=== PATIENT | male | born 1990 | race Caucasian/White ===

== ENCOUNTER 2017-07-23 19:20 | Inpatient (IN) | payer OTHER ==
[2017-07-23 20:05] VITALS: BMI 23.1
--- NOTE | 2017-07-23 21:31 | HP ---
COWS - Scale Resting Pulse: 0= [place] 80 or Below Sweatin=Flushed/Facial Moisture Restless Observation: 1= Difficult to Sit Still Pupil Size: 1= Pupils >than Normal Bone or Joint Aches: 4=Acute Joint/Muscle Pain Runny Nose/ Eye Tearin= Constantly Teary/Runny GI Upset > 30mins: 3= Vomiting/Diarrhea (vomiting x 2, diarrhea x 3) Tremor Observation: 2= Slight Tremor Visible Yawning Observation: 0= None Anxiety or Irritability: 2=Irritable/Anxious Goose Flesh Skin: 0=Smooth Skin COWS Score: 19 Admission ROS [facility] Chief Complaint: Opioid withdrawal symptoms Allergies/Adverse Reactions: Allergies Allergy/AdvReac Type Severity Reaction Status Date / Time No Known Allergies Allergy Verified 07/23/17 20:22 History of Present Illness: 26 years old male with a long history of heroin dependence is seeking admission to detox. Patient has been in previous detox, last in 2015. He reports 9 months of sobriety. He has past medical history of Hep C, GERD, anxiety and depression. He denies suicidal attempt and suicidal ideation at this time. Exam Limitations: No Limitations - Ebola screening Have you traveled outside of the country in the last 21 days: No Have you had contact with anyone from an Ebola affected area: No Have you been sick,other than usual withdrawal symptoms: No Do you have a fever: No - Review of Systems Constitutional: Chills, Loss of Appetite, Malaise, Night Sweats, Changes in sleep EENT: reports: Nose Congestion, Sinus Pressure Respiratory: reports: No Symptoms reported Cardiac: reports: No Symptoms Reported GI: reports: Diarrhea, Nausea, Poor Appetite, Poor Fluid Intake, Vomiting, Abdominal cramping : reports: No Symptoms Reported Musculoskeletal: reports: Back Pain, Muscle Pain, Muscle Weakness Integumentary: reports: Flushing Neuro: reports: Headache, Tingling, Tremors Endocrine: reports: No Symptoms Reported Hematology: reports: No Symptoms Reported Psychiatric: reports: Orientated x3, Agitated, Anxious Other Systems: Reviewed and Negative Patient History - Patient Medical History Hx Anemia: No Hx Asthma: No Hx Chronic Obstructive Pulmonary Disease (COPD): No Hx Cancer: No Hx Cardiac Disorders: No Hx Congestive Heart Failure: No Hx Hypertension: No Hx Hypercholesterolemia: No Hx Pacemaker: No HX Cerebrovascular Accident: No Hx Seizures: No Hx Dementia: No Hx Diabetes: No Hx Gastrointestinal Disorders: Yes (GERD- ON NEXIUM) Hx Liver Disease: No Hx Genitourinary Disorders: No Hx Sexually Transmitted Disorders: No Hx Renal Disease (ESRD): No Hx Thyroid Disease: No Hx Human Immunodeficiency Virus (HIV): No (Negative April 2017) Hx Hepatitis C: Yes (Not on medication) Hx Depression: Yes (ZOLOFT) Hx Suicide Attempt: No (Denies suicidal ideation at this time) Hx Bipolar Disorder: Yes ([place]) Hx Schizophrenia: No Other Medical History: ANXIETY DISORDER- CLONIDINE - Patient Surgical History Past Surgical History: No Hx Neurologic Surgery: No Hx Cataract Extraction: No Hx Cardiac Surgery: No Hx Lung Surgery: No Hx Abdominal Surgery: No Hx Appendectomy: No Hx Cholecystectomy: No Hx Genitourinary Surgery: No Hx Orthopedic Surgery: No Anesthesia Reaction: No - PPD History Previous Implant?: Yes Documented Results: Negative w/proof Implanted On Prior [facility] Admission?: Yes Date: 01/18/16 Results: 0 mm PPD to be Administered?: Yes - Reproductive History Patient is a Female of Child Bearing Age (11 -55 yrs old): No (MALE) - Smoking Cessation Smoking history: Current every day smoker Have you smoked in the past 12 months: Yes Aproximately how many cigarettes per day: 20 Cigars Per Day: 0 Hx Chewing Tobacco Use: No Initiated information on smoking cessation: Yes 'Breaking Loose' booklet given: 07/23/17 - Substance & Tx. History Hx Alcohol Use: No Hx Substance Use: Yes Substance Use Type: Cocaine, Heroin, Marijuana - Substances Abused Heroin Route: Injection Frequency: Daily Amount used: 8 bags Age of first use: 19 Date of Last Use: 07/22/17 Cocaine Frequency: 1-2 times per week Amount used: a bag weeekly Age of first use: 20 Date of Last Use: 07/22/17 Family Disease History - Family Disease History Family Disease History: Other: Father (etoh), Mother (etoh) Admission Physical Exam S - Vital Signs Vital Signs: Vital Signs - 24 hr 07/23/17 20:03 Temperature 97.6 F Pulse Rate 72 Respiratory 18 Rate Blood Pressure 127/72 - Physical General Appearance: Yes: Moderate Distress HEENTM: Yes: EOMI, Normal ENT Inspection, Normal Voice, ATUL Respiratory: Yes: Lungs Clear, Normal Breath Sounds, No Respiratory Distress Neck: Yes: Supple Breast: Yes: Breast Exam Deferred Cardiology: Yes: Regular Rhythm, Regular Rate, S1, S2 Abdominal: Yes: Normal Bowel Sounds, Soft Genitourinary: Yes: Within Normal Limits Back: Yes: Normal Inspection Musculoskeletal: Yes: Back pain, Muscle Pain, Muscle weakness Extremities: Yes: Tremors 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: Yes: Alert, Normal Mood/Affect Integumentary: Yes: Warm Lymphatic: Yes: Within Normal Limits - Diagnostic (1) Depression Current Visit: Yes Status: Chronic Qualifiers: Depression Type: unspecified Qualified Code(s): F32.9 - Major depressive disorder, single episode, unspecified (2) Cocaine dependence Current Visit: Yes Status: Chronic Qualifiers: Substance use status: uncomplicated Qualified Code(s): F14.20 - Cocaine dependence, uncomplicated (3) Opioid dependence with withdrawal Current Visit: Yes Status: Chronic (4) Anxiety disorder Current Visit: Yes Status: Chronic Qualifiers: Anxiety disorder type: generalized anxiety disorder Qualified Code(s): F41.1 - Generalized anxiety disorder (5) Nicotine dependence Current Visit: Yes Status: Chronic Qualifiers: Nicotine product type: cigarettes Substance use status: uncomplicated Qualified Code(s): F17.210 - Nicotine dependence, cigarettes, uncomplicated Cleared for Admission S - Detox or Rehab [facility] Level of Care: Medically Managed Detox Regimen/Protocol: Methadone [facility] Breath Alcohol Content Breath Alcohol Content: 0 Urine Drug Screen - Results Drug Screen Negative: No Urine Drug Screen Results: THC-Marijuana, KM-Cocaine, OPI-Opiates, OXY- Oxycodone
[2017-07-23] MEDS ORDERED: MAGNESIUM CITRATE 300 ML BOTTLE PO PRN (21:41)
[2017-07-23] MEDS ORDERED: MAG HYDROX/AL HYDROX/SIMETH 30 ML UNIT-DOSE CUP PO PRN (21:41)
[2017-07-23] MEDS ORDERED: MENTHOL/PHENOL 1 EACH UD MM PRN (21:41)
[2017-07-23] MEDS ORDERED: LOPERAMIDE HCL 2 MG CAPSULE PO PRN (21:41)
[2017-07-23] MEDS ORDERED: ACETAMINOPHEN 325 MG TABLET (FP) PO PRN (21:41)
[2017-07-23] MEDS ORDERED: IBUPROFEN 400 MG TABLET (FP) PO PRN (21:41)
[2017-07-23] MEDS ORDERED: METHADONE HCL 10 MG TABLET (FOR DETOX USE ONLY) PO ONE ×2 (21:41→23:00)
[2017-07-23] MEDS ORDERED: guaiFENesin/D-METHORPHAN HB 10 ML UNIT-DOSE CUPS PO PRN (21:41)
[2017-07-23] MEDS ORDERED: P-EPHED 60MG/TRIPROLIDI 2.5MG TABLET PO PRN (21:41)
[2017-07-23] MEDS ORDERED: NICOTINE POLACRILEX 2 MG GUM BC PRN (21:41)
[2017-07-23] MEDS ORDERED: MAGNESIUM HYDROX 2400MG/30ML ORAL SUSPENSION 30 ML CUP PO PRN (21:41)
[2017-07-23] MEDS: diazePAM 5 MG TABLET PO PRN (22:45)
[2017-07-23] MEDS: THIAMINE HCL 100 MG TABLET (FP) PO SCH (22:45)
[2017-07-23 23:54] LABS: URINE APPEARANCE CLEAR; URINE BILIRUBIN NEGATIVE (NEGATIVE); URINE BLOOD NEGATIVE (NEGATIVE); URINE COLOR DKYELLOW; URINE GLUCOSE (UA) NEGATIVE (NEGATIVE); URINE KETONE NEGATIVE (NEGATIVE); URINE LEUK ESTERASE NEGATIVE (NEGATIVE); URINE NITRITE NEGATIVE (NEGATIVE); URINE PROTEIN NEGATIVE (NEGATIVE)
[2017-07-24] MEDS ORDERED: METHADONE HCL 10 MG TABLET (FOR DETOX USE ONLY) PO ONE (10:00)
[2017-07-24 10:31] LABS: HEMATOCRIT 39.7 % (35.4-49); HEMOGLOBIN 13.9 GM/dL (11.7-16.9); MEAN CELL VOLUME 88.5 fl (80-96); MEAN PLT VOLUME 8.4 fl (7.5-11.1); PLATELET COUNT 237 K/MM3 (134-434); RBC 4.49 M/mm3 (4.00-5.60)
[2017-07-24 10:32] LABS: CHLORIDE 103 mmol/L (98-107); POTASSIUM 4.1 mmol/L (3.5-5.1); SODIUM 137 mmol/L (136-145)
--- NOTE | 2017-07-24 10:53 | CONSULT ---
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 Substance Abuse History: Discussed in this interview.Mr Gallardo confirmed addictions reported at [facility] on admission.Details as follows : Smoking history: Current every day smoker. Have you smoked in the past 12 months: Yes. Aproximately how many cigarettes per day: 20. Cigars Per Day: 0. Hx Chewing Tobacco Use: No. Initiated information on smoking cessation: Yes. 'Breaking Loose' booklet given: 07/23/17. - Substance & Tx. History. Hx Alcohol Use: No. Hx Substance Use: Yes. Substance Use Type: Cocaine, Heroin, Marijuana. - Substances Abused. Heroin. Route: Injection. Frequency: Daily. Amount used: 8 bags. Age of first use: 19. Date of Last Use: 07/22/17. Cocaine. Frequency: 1-2 times per week. Amount used: a bag weeekly. Age of first use: 20. Date of Last Use: 07/22/17 Medical History: Hepatitis C and GERD. Psychiatric History: Patient admits to a history of two psychiatric hospitalizations at [facility] in [facility].Diagnosed with Bipolar Disorder and MDD.Used to be prescribed zoloft,trazodone,depakote and seroquel.Chronically non-adherent to OPD care and medications.Lost to follow-up for months.Mr Gallardo indicates his interest in resuming treatment with trazodone (prescribed during a recent incarceration).No reported history of suicide attempts. Physical/Sexual Abuse/Trauma History: Patient denies. Additional Comment: Urine Drug Screen Results: THC-Marijuana, KM-Cocaine, OPI- Opiates, OXY-Oxycodone.Noted. Mental Status Exam - Mental Status Exam Alert and Oriented to: Time, Place, Person Cognitive Function: Good Patient Appearance: Unkempt, Disheveled Mood: Nervous, Withdrawn Affect: Mood Congruent Patient Behavior: Fatigued, Appropriate, Cooperative Speech Pattern: Clear, Appropriate Voice Loudness: Normal Thought Process: Goal Oriented Thought Disorder: Not Present Hallucinations: Denies Suicidal Ideation: Denies Homicidal Ideation: Denies Insight/Judgement: Poor Sleep: Poorly, Difficulty falling asleep Appetite: Good Muscle strength/Tone: Normal Gait/Station: Normal Psychiatric Findings - Problem List ([place] 1, 2,3) (1) Opioid dependence with withdrawal Current Visit: Yes Status: Acute (2) Alcohol dependence with uncomplicated withdrawal Current Visit: Yes Status: Acute (3) Cocaine dependence Current Visit: Yes Status: Acute Qualifiers: Substance use status: uncomplicated Qualified Code(s): F14.20 - Cocaine dependence, uncomplicated (4) Marijuana dependence Current Visit: Yes Status: Acute (5) Nicotine dependence Current Visit: Yes Status: Acute Qualifiers: Nicotine product type: cigarettes Substance use status: uncomplicated Qualified Code(s): F17.210 - Nicotine dependence, cigarettes, uncomplicated (6) Substance induced mood disorder Current Visit: Yes Status: Acute (7) Bipolar disorder Current Visit: No Status: Suspected Comment: As per records.Patient is asymptomatic.Non compliant with medications.Lost to follow-up for several months. (8) Insomnia Current Visit: Yes Status: Chronic Qualifiers: Insomnia type: primary Qualified Code(s): F51.01 - Primary insomnia - Initial Treatment Plan Initial Treatment Plan: Records revisited.Sleep hygiene.Detoxification in progress.Medications : trazodone 100 mg po hs.Patient is made aware of the risk for priapism.Mr Gallardo agrees with this careplan.Observation.
--- NOTE | 2017-07-24 10:55 | PN ---
BHS COWS - Scale Resting Pulse: 0= [place] 80 or Below Sweatin= Chills/Flushing Restless Observation: 3= Extraneous Movement Pupil Size: 0= Normal to Room Light Bone or Joint Aches: 2= Severe Diffuse Aches Runny Nose/ Eye Tearin= Runny Nose/Eyes GI Upset > 30mins: 2= Nausea/Diarrhea Tremor Observation of Outstretched Hands: 2= Slight Tremor Visible Yawning Observation: 2= >3x During Session Anxiety or Irritability: 2=Irritable/Anxious Goose Flesh Skin: 0=Smooth Skin COWS Score: 16 BHS Progress Note (SOAP) Subjective: general body ache tremor restlessness sweat yawning Objective: 07/24/17 10:49 Vital Signs Temperature 97.3 F L 07/24/17 06:00 Pulse Rate 66 07/24/17 06:00 Respiratory Rate 18 07/24/17 06:00 Blood Pressure 126/67 07/24/17 06:00 O2 Sat by Pulse Oximetry (%) Laboratory Last Values WBC 6.0 K/mm3 (4.0-10.0) 07/24/17 07:00 RBC 4.49 M/mm3 (4.00-5.60) 07/24/17 07:00 Hgb 13.9 GM/dL (11.7-16.9) 07/24/17 07:00 Hct 39.7 % (35.4-49) 07/24/17 07:00 MCV 88.5 fl (80-96) 07/24/17 07:00 MCH 31.0 pg (25.7-33.7) 07/24/17 07:00 MCHC 35.0 g/dl (32.0-35.9) 07/24/17 07:00 RDW 13.0 % (11.9-15.9) 07/24/17 07:00 Plt Count 237 K/MM3 (134-434) 07/24/17 07:00 MPV 8.4 fl (7.5-11.1) 07/24/17 07:00 Sodium 137 mmol/L (136-145) 07/24/17 07:00 Potassium 4.1 mmol/L (3.5-5.1) 07/24/17 07:00 Chloride 103 mmol/L (98-107) 07/24/17 07:00 Urine Color Dkyellow 07/23/17 23:40 Urine Appearance Clear 07/23/17 23:40 Urine pH 6.0 (5.0-8.0) 07/23/17 23:40 Ur Specific [place] 1.024 (1.001-1.035) 07/23/17 23:40 Urine Protein Negative (NEGATIVE) 07/23/17 23:40 Urine Glucose (UA) Negative (NEGATIVE) 07/23/17 23:40 Urine Ketones Negative (NEGATIVE) 07/23/17 23:40 Urine Blood Negative (NEGATIVE) 07/23/17 23:40 Urine Nitrite Negative (NEGATIVE) 07/23/17 23:40 Urine Bilirubin Negative (NEGATIVE) 07/23/17 23:40 Urine Urobilinogen 2.0 mg/dL (0.2-1.0) 07/23/17 23:40 Ur Leukocyte Esterase Negative (NEGATIVE) 07/23/17 23:40 lab noted Assessment: 07/24/17 10:49 withdrawal sx Plan: continue detox
[2017-07-24 11:07] LABS: ALBUMIN 3.4 g/dl (3.4-5.0); ALK PHOS 111 U/L (45-117); ANION GAP 7 (8-16); BILIRUBIN,TOTAL 0.4 mg/dL (0.2-1.0); BLOOD UREA NITROGEN 12 mg/dL (7-18); CALCIUM 8.7 mg/dL (8.5-10.1); CO2 27 mmol/L (21-32); CREATININE 0.8 mg/dL (0.7-1.3); GLUCOSE,RANDOM 98 mg/dL (74-106); SGOT/AST 72 U/L (15-37); SGPT/ALT 169 U/L (12-78); TOT PROT 6.4 g/dl (6.4-8.2)
[2017-07-24] MEDS: diazePAM 5 MG TABLET PO PRN ×3 (11:10→22:10)
[2017-07-24] MEDS: PRENATAL VITAMINS W/ FOLIC ACID TABLET (FP) PO SCH (11:10)
[2017-07-24] MEDS: PANTOPRAZOLE 20 MG TABLET (FP) PO SCH (11:10)
[2017-07-24] MEDS: NICOTINE 14 MG/24 HOURS TOPICAL PATCH TD SCH (11:11)
--- NOTE | 2017-07-24 12:03 | EKG ---
Test Reason : Blood Pressure : / mmHG Vent. Rate : 072 BPM Atrial Rate : 072 BPM P-R Int : 172 ms QRS Dur : 104 ms QT Int : 402 ms P-R-T Axes : 059 088 066 degrees QTc Int : 440 ms NORMAL SINUS RHYTHM NORMAL ECG NO PREVIOUS ECGS AVAILABLE Confirmed by MD Cornel, Patrick ([id number]) on 07/24/2017 12:03:13 PM Referred By: Confirmed By:Patrick Unger MD
[2017-07-24] MEDS: THIAMINE HCL 100 MG TABLET (FP) PO SCH (22:09)
[2017-07-24] MEDS: traZODone HCL 100 MG TABLET (FP) PO SCH (22:09)
--- NOTE | 2017-07-25 09:47 | PN ---
BHS COWS - Scale Resting Pulse: 0= [place] 80 or Below Sweatin= Chills/Flushing Restless Observation: 1= Difficult to Sit Still Pupil Size: 0= Normal to Room Light Bone or Joint Aches: 2= Severe Diffuse Aches Runny Nose/ Eye Tearin= Runny Nose/Eyes GI Upset > 30mins: 1= Stomach Cramp Tremor Observation of Outstretched Hands: 2= Slight Tremor Visible Yawning Observation: 2= >3x During Session Anxiety or Irritability: 2=Irritable/Anxious Goose Flesh Skin: 0=Smooth Skin COWS Score: 13 BHS Progress Note (SOAP) Subjective: general body ache sweat tremor restlessness running nose Objective: 07/25/17 09:46 Vital Signs Temperature 97.1 F L 07/25/17 06:30 Pulse Rate 58 L 07/25/17 06:30 Respiratory Rate 18 07/25/17 06:30 Blood Pressure 98/59 07/25/17 06:30 O2 Sat by Pulse Oximetry (%) Laboratory Last Values WBC 6.0 K/mm3 (4.0-10.0) 07/24/17 07:00 RBC 4.49 M/mm3 (4.00-5.60) 07/24/17 07:00 Hgb 13.9 GM/dL (11.7-16.9) 07/24/17 07:00 Hct 39.7 % (35.4-49) 07/24/17 07:00 MCV 88.5 fl (80-96) 07/24/17 07:00 MCH 31.0 pg (25.7-33.7) 07/24/17 07:00 MCHC 35.0 g/dl (32.0-35.9) 07/24/17 07:00 RDW 13.0 % (11.9-15.9) 07/24/17 07:00 Plt Count 237 K/MM3 (134-434) 07/24/17 07:00 MPV 8.4 fl (7.5-11.1) 07/24/17 07:00 Sodium 137 mmol/L (136-145) 07/24/17 07:00 Potassium 4.1 mmol/L (3.5-5.1) 07/24/17 07:00 Chloride 103 mmol/L (98-107) 07/24/17 07:00 Carbon Dioxide 27 mmol/L (21-32) 07/24/17 07:00 Anion Gap 7 (8-16) L 07/24/17 07:00 BUN 12 mg/dL (7-18) 07/24/17 07:00 Creatinine 0.8 mg/dL (0.7-1.3) D 07/24/17 07:00 Creat Clearance w eGFR > 60 (>60) 07/24/17 07:00 Random Glucose 98 mg/dL (74-106) 07/24/17 07:00 Calcium 8.7 mg/dL (8.5-10.1) 07/24/17 07:00 Total Bilirubin 0.4 mg/dL (0.2-1.0) D 07/24/17 07:00 AST 72 U/L (15-37) H D 07/24/17 07:00 ALT 169 U/L (12-78) H D 07/24/17 07:00 Alkaline Phosphatase 111 U/L (45-117) D 07/24/17 07:00 Total Protein 6.4 g/dl (6.4-8.2) 07/24/17 07:00 Albumin 3.4 g/dl (3.4-5.0) 07/24/17 07:00 Urine Color Dkyellow 07/23/17 23:40 Urine Appearance Clear 07/23/17 23:40 Urine pH 6.0 (5.0-8.0) 07/23/17 23:40 Ur Specific [place] 1.024 (1.001-1.035) 07/23/17 23:40 Urine Protein Negative (NEGATIVE) 07/23/17 23:40 Urine Glucose (UA) Negative (NEGATIVE) 07/23/17 23:40 Urine Ketones Negative (NEGATIVE) 07/23/17 23:40 Urine Blood Negative (NEGATIVE) 07/23/17 23:40 Urine Nitrite Negative (NEGATIVE) 07/23/17 23:40 Urine Bilirubin Negative (NEGATIVE) 07/23/17 23:40 Urine Urobilinogen 2.0 mg/dL (0.2-1.0) 07/23/17 23:40 Ur Leukocyte Esterase Negative (NEGATIVE) 07/23/17 23:40 RPR Titer Nonreactive (NONREACTIVE) 07/24/17 07:00 lab noted Assessment: 07/25/17 09:46 withdrawal sx Plan: continue detox
[2017-07-25] MEDS ORDERED: METHADONE HCL 5 MG TABLET (FOR DETOX USE ONLY) PO ONE (10:00)
[2017-07-25] MEDS: PANTOPRAZOLE 20 MG TABLET (FP) PO SCH (10:15)
[2017-07-25] MEDS: PRENATAL VITAMINS W/ FOLIC ACID TABLET (FP) PO SCH (10:15)
[2017-07-25] MEDS: diazePAM 5 MG TABLET PO PRN ×3 (10:15→21:02)
[2017-07-25] MEDS: NICOTINE 14 MG/24 HOURS TOPICAL PATCH TD SCH (10:15)
[2017-07-25] MEDS: THIAMINE HCL 100 MG TABLET (FP) PO SCH (22:34)
[2017-07-25] MEDS: traZODone HCL 100 MG TABLET (FP) PO SCH (22:34)
[2017-07-26] MEDS ORDERED: METHADONE HCL 5 MG TABLET (FOR DETOX USE ONLY) PO ONE (10:00)
--- NOTE | 2017-07-26 10:23 | PN ---
BHS Progress Note (SOAP) Subjective: general body ache joint aches stuffy nose sweat tremor restlessness irritable Objective: 07/26/17 10:19 Vital Signs Temperature 97.0 F L 07/26/17 06:26 Pulse Rate 55 L 07/26/17 06:26 Respiratory Rate 18 07/26/17 06:26 Blood Pressure 131/87 07/26/17 06:26 O2 Sat by Pulse Oximetry (%) Laboratory Last Values WBC 6.0 K/mm3 (4.0-10.0) 07/24/17 07:00 RBC 4.49 M/mm3 (4.00-5.60) 07/24/17 07:00 Hgb 13.9 GM/dL (11.7-16.9) 07/24/17 07:00 Hct 39.7 % (35.4-49) 07/24/17 07:00 MCV 88.5 fl (80-96) 07/24/17 07:00 MCH 31.0 pg (25.7-33.7) 07/24/17 07:00 MCHC 35.0 g/dl (32.0-35.9) 07/24/17 07:00 RDW 13.0 % (11.9-15.9) 07/24/17 07:00 Plt Count 237 K/MM3 (134-434) 07/24/17 07:00 MPV 8.4 fl (7.5-11.1) 07/24/17 07:00 Sodium 137 mmol/L (136-145) 07/24/17 07:00 Potassium 4.1 mmol/L (3.5-5.1) 07/24/17 07:00 Chloride 103 mmol/L (98-107) 07/24/17 07:00 Carbon Dioxide 27 mmol/L (21-32) 07/24/17 07:00 Anion Gap 7 (8-16) L 07/24/17 07:00 BUN 12 mg/dL (7-18) 07/24/17 07:00 Creatinine 0.8 mg/dL (0.7-1.3) D 07/24/17 07:00 Creat Clearance w eGFR > 60 (>60) 07/24/17 07:00 Random Glucose 98 mg/dL (74-106) 07/24/17 07:00 Calcium 8.7 mg/dL (8.5-10.1) 07/24/17 07:00 Total Bilirubin 0.4 mg/dL (0.2-1.0) D 07/24/17 07:00 AST 72 U/L (15-37) H D 07/24/17 07:00 ALT 169 U/L (12-78) H D 07/24/17 07:00 Alkaline Phosphatase 111 U/L (45-117) D 07/24/17 07:00 Total Protein 6.4 g/dl (6.4-8.2) 07/24/17 07:00 Albumin 3.4 g/dl (3.4-5.0) 07/24/17 07:00 Urine Color Dkyellow 07/23/17 23:40 Urine Appearance Clear 07/23/17 23:40 Urine pH 6.0 (5.0-8.0) 07/23/17 23:40 Ur Specific [place] 1.024 (1.001-1.035) 07/23/17 23:40 Urine Protein Negative (NEGATIVE) 07/23/17 23:40 Urine Glucose (UA) Negative (NEGATIVE) 07/23/17 23:40 Urine Ketones Negative (NEGATIVE) 07/23/17 23:40 Urine Blood Negative (NEGATIVE) 07/23/17 23:40 Urine Nitrite Negative (NEGATIVE) 07/23/17 23:40 Urine Bilirubin Negative (NEGATIVE) 07/23/17 23:40 Urine Urobilinogen 2.0 mg/dL (0.2-1.0) 07/23/17 23:40 Ur Leukocyte Esterase Negative (NEGATIVE) 07/23/17 23:40 RPR Titer Nonreactive (NONREACTIVE) 07/24/17 07:00 lab noted Assessment: 07/26/17 10:21 withdrawal sx Plan: continue detox
[2017-07-26] MEDS ORDERED: METHADONE HCL 10 MG TABLET (FOR DETOX USE ONLY) PO ONE (10:53)
[2017-07-26] MEDS: PRENATAL VITAMINS W/ FOLIC ACID TABLET (FP) PO SCH (10:54)
[2017-07-26] MEDS: PANTOPRAZOLE 20 MG TABLET (FP) PO SCH (10:54)
[2017-07-26] MEDS: NICOTINE 14 MG/24 HOURS TOPICAL PATCH TD SCH (10:54)
[2017-07-26] MEDS: diazePAM 5 MG TABLET PO PRN (10:54)
[2017-07-26 11:56] VITALS: TEMP 97.3
[2017-07-26 12:54] VITALS: BP 122/58; PULSE 74
--- NOTE | 2017-07-26 13:44 | DS ---
[facility] Detox Discharge Summary Admission Date: 07/23/17 Discharge Date: 07/26/17 - History Present History: Opioid Dependence Additional Comments: 26 years old male admitted for heroin detox, request shorten detox regiment one day after methadone detox pharmacotherapy patient insists to determinate the detox, denies pain neuro: II-XII grossly intact cardiac S1S2 RRR lung: clear bilaterally adbomen: soft nontender musculo skelatal: + 2 pulses x 4, skin warm dry intact full range of motion - Physical Exam Results Vital Signs: Vital Signs Temperature 97.3 F L 07/26/17 13:36 Pulse Rate 74 07/26/17 13:36 Respiratory Rate 18 07/26/17 13:36 Blood Pressure 122/58 07/26/17 13:36 O2 Sat by Pulse Oximetry (%) Pertinent Admission Physical Exam Findings: withdrawal sx Vital Signs Temperature 97.3 F L 07/26/17 13:36 Pulse Rate 74 07/26/17 13:36 Respiratory Rate 18 07/26/17 13:36 Blood Pressure 122/58 07/26/17 13:36 O2 Sat by Pulse Oximetry (%) Laboratory Last Values WBC 6.0 K/mm3 (4.0-10.0) 07/24/17 07:00 RBC 4.49 M/mm3 (4.00-5.60) 07/24/17 07:00 Hgb 13.9 GM/dL (11.7-16.9) 07/24/17 07:00 Hct 39.7 % (35.4-49) 07/24/17 07:00 MCV 88.5 fl (80-96) 07/24/17 07:00 MCH 31.0 pg (25.7-33.7) 07/24/17 07:00 MCHC 35.0 g/dl (32.0-35.9) 07/24/17 07:00 RDW 13.0 % (11.9-15.9) 07/24/17 07:00 Plt Count 237 K/MM3 (134-434) 07/24/17 07:00 MPV 8.4 fl (7.5-11.1) 07/24/17 07:00 Sodium 137 mmol/L (136-145) 07/24/17 07:00 Potassium 4.1 mmol/L (3.5-5.1) 07/24/17 07:00 Chloride 103 mmol/L (98-107) 07/24/17 07:00 Carbon Dioxide 27 mmol/L (21-32) 07/24/17 07:00 Anion Gap 7 (8-16) L 07/24/17 07:00 BUN 12 mg/dL (7-18) 07/24/17 07:00 Creatinine 0.8 mg/dL (0.7-1.3) D 07/24/17 07:00 Creat Clearance w eGFR > 60 (>60) 07/24/17 07:00 Random Glucose 98 mg/dL (74-106) 07/24/17 07:00 Calcium 8.7 mg/dL (8.5-10.1) 07/24/17 07:00 Total Bilirubin 0.4 mg/dL (0.2-1.0) D 07/24/17 07:00 AST 72 U/L (15-37) H D 07/24/17 07:00 ALT 169 U/L (12-78) H D 07/24/17 07:00 Alkaline Phosphatase 111 U/L (45-117) D 07/24/17 07:00 Total Protein 6.4 g/dl (6.4-8.2) 07/24/17 07:00 Albumin 3.4 g/dl (3.4-5.0) 07/24/17 07:00 Urine Color Dkyellow 07/23/17 23:40 Urine Appearance Clear 07/23/17 23:40 Urine pH 6.0 (5.0-8.0) 07/23/17 23:40 Ur Specific [place] 1.024 (1.001-1.035) 07/23/17 23:40 Urine Protein Negative (NEGATIVE) 07/23/17 23:40 Urine Glucose (UA) Negative (NEGATIVE) 07/23/17 23:40 Urine Ketones Negative (NEGATIVE) 07/23/17 23:40 Urine Blood Negative (NEGATIVE) 07/23/17 23:40 Urine Nitrite Negative (NEGATIVE) 07/23/17 23:40 Urine Bilirubin Negative (NEGATIVE) 07/23/17 23:40 Urine Urobilinogen 2.0 mg/dL (0.2-1.0) 07/23/17 23:40 Ur Leukocyte Esterase Negative (NEGATIVE) 07/23/17 23:40 RPR Titer Nonreactive (NONREACTIVE) 07/24/17 07:00 lab noted - Treatment Hospital Course: Detox Protocol Followed, Responded well Patient has Accepted a Rehab Referral to: as per counselor arranged - Medication Discharge Medications: Ambulatory Orders Divalproex [Depakote -] 1,000 mg PO DAILY 07/23/17 Esomeprazole Magnesium [Nexium] 30 mg PO DAILY 07/23/17 Sertraline HCl [Zoloft -] 100 mg PO DAILY 07/23/17 traZODone HCL [Desyrel -] 150 mg PO HS 07/23/17 - Diagnosis (1) Alcohol dependence with uncomplicated withdrawal Current Visit: Yes Status: Acute (2) Nicotine dependence Current Visit: Yes Status: Acute Qualifiers: Nicotine product type: cigarettes Substance use status: in withdrawal Qualified Code(s): F17.213 - Nicotine dependence, cigarettes, with withdrawal (3) Opioid dependence with withdrawal Current Visit: Yes Status: Acute (4) Bipolar II disorder Current Visit: Yes Status: Suspected - AMA Did Patient Leave Against Medical Advice: Yes
[2017-07-27] MEDS ORDERED: METHADONE HCL 5 MG TABLET (FOR DETOX USE ONLY) PO ONE (06:00)
[2017-07-27] MEDS ORDERED: METHADONE HCL 10 MG TABLET (FOR DETOX USE ONLY) PO ONE (10:00)
[2017-07-28] MEDS ORDERED: METHADONE HCL 5 MG TABLET (FOR DETOX USE ONLY) PO ONE (06:00)
== END 2017-07-26 12:58 | disposition left against medical advice (07) | DRG 770 ==
LOC: YASAS 19:20 → Y6N 20:51
PROVIDERS: ADMIT Internal Medicine; ATTEND Internal Medicine
PROC: HZ2ZZZZ Detoxification Services for Substance Abuse Treatment (ICD-10-PCS; principal; 2017-07-23)
DX: F11.20 Opioid dependence, uncomplicated (principal); F14.20 Cocaine dependence, uncomplicated; F12.20 Cannabis dependence, uncomplicated; F17.213 Nicotine dependence, cigarettes, with withdrawal; F31.81 Bipolar II disorder; F19.24 Other psychoactive substance dependence with psychoactive substance-induced mood disorder; F32.9 Major depressive disorder, single episode, unspecified; F41.1 Generalized anxiety disorder; G47.00 Insomnia, unspecified; B18.2 Chronic viral hepatitis C; K21.9 Gastro-esophageal reflux disease without esophagitis; Z59.0 Homelessness
CPT/HCPCS: 36415; 80053; 81003; 85027; 86593; 93005; 93010

== ENCOUNTER 2017-08-24 08:51 | Inpatient (IN) | payer OTHER ==
[2017-08-24 13:08] VITALS: BMI 22.3
--- NOTE | 2017-08-24 14:53 | HP ---
COWS - Scale Resting Pulse: 0= [place] 80 or Below Sweatin= Chills/Flushing Restless Observation: 3= Extraneous Movement Pupil Size: 0= Normal to Room Light Bone or Joint Aches: 4=Acute Joint/Muscle Pain Runny Nose/ Eye Tearin= Runny Nose/Eyes GI Upset > 30mins: 1= Stomach Cramp Tremor Observation: 2= Slight Tremor Visible Yawning Observation: 0= None Anxiety or Irritability: 2=Irritable/Anxious Goose Flesh Skin: 0=Smooth Skin COWS Score: 15 CIWA Score - CIWA Score Nausea/Vomitin-Mild Nausea/No Vomiting Muscle Tremors: 3 Anxiety: 4-Mod. Anxious/Guarded Agitation: 4-Moderately Restless Paroxysmal Sweats: 1-Minimal Palms Moist Orientation: 0-Oriented Tacttile Disturbances: 3-Moderate Itch/Numb/Burn Auditory Disturbances: 0-None Visual Disturbances: 0-None Headache: 2-Mild CIWA-Ar Total Score: 18 Admission ROS S - HPI Chief Complaint: WITHDRAWAL SX FROM HEROIN AND ALCOHOL Allergies/Adverse Reactions: Allergies Allergy/AdvReac Type Severity Reaction Status Date / Time No Known Allergies Allergy Verified 08/24/17 14:12 History of Present Illness: 26 Y/O MALE WITH A HX OF HEROIN,ALCOHOL,COCAINE,MARIJUANA AND CRYSTAL METH DEPENDENCE SEEKING DETOX [place]. Exam Limitations: No Limitations - Ebola screening Have you traveled outside of the country in the last 21 days: No (N) Have you had contact with anyone from an Ebola affected area: No Have you been sick,other than usual withdrawal symptoms: No Do you have a fever: No - Review of Systems Constitutional: Chills, Loss of Appetite, Night Sweats, Changes in sleep ( CHRONIC INSOMNIA DUE TO DRUG USE), Unintentional Wgt. Loss EENT: reports: Blurred Vision, Tearing, Nose Congestion, Dental Problems ( CHIPPED TOOTH) Respiratory: reports: No Symptoms reported Cardiac: reports: Lightheadedness, Chest Tightness (DUE TO WITHDRAWAL SX) GI: reports: Constipated, Diarrhea, Nausea, Poor Appetite, Poor Fluid Intake, Vomiting, Indigestion (HX GERD), Abdominal cramping : reports: Dysuria ("WHEN I'M UNDER THE INFLUENCE AND I CAN'T CONTROL IT WHEN I'M OFF OF IT".) Musculoskeletal: reports: Back Pain, Joint Pain, Muscle Pain Integumentary: reports: Bruising (LEFT ELBOW IVD INJ SITE) Neuro: reports: Headache, Numbness (LEFT ARM FALLS ASLEEP), Tingling (LEFT ARM) , Unsteady Gait (WHEN UNDER THE INFLUENCE OF ALCOHOL AND DRUGS) Endocrine: reports: No Symptoms Reported Hematology: reports: No Symptoms Reported Psychiatric: reports: Orientated x3, Agitated, Anxious, Depressed Other Systems: Reviewed and Negative Patient History - Patient Medical History Hx Anemia: No Hx Asthma: No Hx Chronic Obstructive Pulmonary Disease (COPD): No Hx Cancer: No Hx Cardiac Disorders: No Hx Congestive Heart Failure: No Hx Hypertension: No Hx Hypercholesterolemia: No Hx Pacemaker: No HX Cerebrovascular Accident: No Hx Seizures: No Hx Dementia: No Hx Diabetes: No Hx Gastrointestinal Disorders: Yes (acid reflux-NEXIUM) Hx Liver Disease: No Hx Genitourinary Disorders: No Hx Sexually Transmitted Disorders: No Hx Renal Disease (ESRD): No Hx Thyroid Disease: No Hx Human Immunodeficiency Virus (HIV): No (Negative hx) Hx Hepatitis C: Yes (Not on medication) Hx Depression: Yes Hx Suicide Attempt: No (DENIES S/I TODAY OR PREVIOUSLY) Hx Bipolar Disorder: Yes ([place]) Hx Schizophrenia: No - Patient Surgical History Past Surgical History: No Hx Neurologic Surgery: No Hx Cataract Extraction: No Hx Cardiac Surgery: No Hx Lung Surgery: No Hx Breast Surgery: No Hx Breast Biopsy: No Hx Abdominal Surgery: No Hx Appendectomy: No Hx Cholecystectomy: No Hx Genitourinary Surgery: No Hx Orthopedic Surgery: No Anesthesia Reaction: No - PPD History Previous Implant?: Yes Documented Results: Negative w/proof Implanted On Prior [facility] Admission?: Yes Date: 07/25/17 Results: 0 mm PPD to be Administered?: No - Reproductive History Patient is a Female of Child Bearing Age (11 -55 yrs old): No (MALE) - Smoking Cessation Smoking history: Current every day smoker Have you smoked in the past 12 months: Yes Aproximately how many cigarettes per day: 20 Cigars Per Day: 0 Hx Chewing Tobacco Use: No Initiated information on smoking cessation: Yes 'Breaking Loose' booklet given: 08/24/17 - Substance & Tx. History Hx Alcohol Use: Yes (ERASMO/BEER) Hx Substance Use: Yes (HEROIN/CRYSTAL METH/MARIJUANA/CRACK/COCAINE) Substance Use Type: Alcohol, Cocaine, Heroin, Marijuana Hx Substance Use Treatment: Yes - Substances Abused Heroin Route: Injection Frequency: Daily Amount used: 8 bags Age of first use: 19 Date of Last Use: 08/23/17 Alcohol-erasmo/beer Route: Oral Frequency: Daily Amount used: 1 pt./3-6 pks. Age of first use: 17 Date of Last Use: 08/24/17 Crystal meth Route: Injection Frequency: 1-3 times last 30 days Amount used: $30-40 Age of first use: 26 Date of Last Use: 09/12/17 Marijuana Route: Smoking Frequency: 1-3 times last 30 days Amount used: $5 Age of first use: 13 Date of Last Use: 08/24/17 CRACK/Cocaine Route: Injection Frequency: Daily Amount used: $100 Age of first use: 21 Date of Last Use: 08/23/17 Family Disease History - Family Disease History Family Disease History: Other: Father (etoh), Mother (etoh) Admission Physical Exam [facility] - Vital Signs Vital Signs: Vital Signs - 24 hr 08/24/17 13:05 Temperature 98.1 F Pulse Rate 78 Respiratory 20 Rate Blood Pressure 127/86 - Physical General Appearance: Yes: Moderate Distress, Irritable, Anxious HEENTM: Yes: EOMI, Normocephalic, ATUL, Pharynx Normal, Nasal Congestion, Rhinorrhea Respiratory: Yes: Chest Non-Tender, Lungs Clear, Normal Breath Sounds Neck: Yes: No masses,lesions,Nodules, Supple, Trachea in good position Breast: Yes: Breast Exam Deferred Cardiology: Yes: Regular Rhythm, Regular Rate, S1, S2 Abdominal: Yes: Normal Bowel Sounds, Non Tender, Flat, Soft Genitourinary: Yes: Other (N/C) Back: Yes: Within Normal Limits Musculoskeletal: Yes: full range of Motion, Gait Steady Extremities: Yes: Normal Range of Motion, Non-Tender, Tremors, Other (BLISTERS ON FEET) 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: 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 NML intact, Fully Oriented, Alert, Motor Strength 5/5 Integumentary: Yes: Dry, Warm, Track Posey (LEFT ELBOW IVD TRACKS..NO SWELLING, WARMTH OR REDNESS), Other (BLISTERS ON BOTH FEET) Lymphatic: Yes: Within Normal Limits - Diagnostic (1) Alcohol dependence with uncomplicated withdrawal Current Visit: Yes Status: Acute (2) Cocaine dependence Current Visit: Yes Status: Acute Qualifiers: Substance use status: uncomplicated Qualified Code(s): F14.20 - Cocaine dependence, uncomplicated (3) Marijuana dependence Current Visit: Yes Status: Acute (4) Nicotine dependence Current Visit: Yes Status: Acute Qualifiers: Nicotine product type: cigarettes Substance use status: in withdrawal Qualified Code(s): F17.213 - Nicotine dependence, cigarettes, with withdrawal (5) Opioid dependence with withdrawal Current Visit: Yes Status: Acute (6) Depression Current Visit: Yes Status: Chronic Qualifiers: Depression Type: unspecified Qualified Code(s): F32.9 - Major depressive disorder, single episode, unspecified (7) Insomnia Current Visit: Yes Status: Chronic Qualifiers: Insomnia type: primary Qualified Code(s): F51.01 - Primary insomnia Cleared for Admission [facility] - Detox or Rehab [facility] Level of Care: Medically Managed Detox Regimen/Protocol: Methadone/Librium S Breath Alcohol Content Breath Alcohol Content: 0 Urine Drug Screen - Results Drug Screen Negative: No Urine Drug Screen Results: THC-Marijuana, KM-Cocaine, OPI-Opiates
[2017-08-24] MEDS ORDERED: IBUPROFEN 400 MG TABLET (FP) PO PRN (15:14)
[2017-08-24] MEDS ORDERED: MAG HYDROX/AL HYDROX/SIMETH 30 ML UNIT-DOSE CUP PO PRN (15:14)
[2017-08-24] MEDS ORDERED: NICOTINE POLACRILEX 4 MG GUM BUC PRN (15:14)
[2017-08-24] MEDS ORDERED: ACETAMINOPHEN 325 MG TABLET (FP) PO PRN (15:14)
[2017-08-24] MEDS ORDERED: MAGNESIUM CITRATE 300 ML BOTTLE PO PRN (15:14)
[2017-08-24] MEDS ORDERED: P-EPHED 60MG/TRIPROLIDI 2.5MG TABLET PO PRN (15:14)
[2017-08-24] MEDS ORDERED: MENTHOL/PHENOL 1 EACH UD MM PRN (15:14)
[2017-08-24] MEDS ORDERED: LOPERAMIDE HCL 2 MG CAPSULE PO PRN (15:14)
[2017-08-24] MEDS ORDERED: MAGNESIUM HYDROX 2400MG/30ML ORAL SUSPENSION 30 ML CUP PO PRN (15:14)
[2017-08-24] MEDS ORDERED: guaiFENesin/D-METHORPHAN HB 10 ML UNIT-DOSE CUPS PO PRN (15:14)
[2017-08-24] MEDS ORDERED: BACITRACIN 0.9 GM PACKET TP ONE (15:45)
[2017-08-24] MEDS ORDERED: METHADONE HCL 10 MG TABLET (FOR DETOX USE ONLY) PO ONE ×2 (15:45→23:00)
[2017-08-24] MEDS ORDERED: chlordiazePOXIDE HCL 25 MG CAPSULE PO ONE (15:45)
--- NOTE | 2017-08-24 17:17 | CONSULT ---
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 Substance Abuse History: Confirmed by the patient in this interview.Details in current [facility] report : Smoking history: Current every day smoker. Have you smoked in the past 12 months: Yes. Aproximately how many cigarettes per day: 20. Cigars Per Day: 0. Hx Chewing Tobacco Use: No. Initiated information on smoking cessation: Yes. 'Breaking Loose' booklet given: 08/24/17. - Substance & Tx. History. Hx Alcohol Use: Yes (ERASMO/BEER). Hx Substance Use: Yes ( HEROIN/CRYSTAL METH/MARIJUANA/CRACK/COCAINE). Substance Use Type: Alcohol, Cocaine, Heroin, Marijuana. Hx Substance Use Treatment: Yes. - Substances Abused. Heroin. Route: Injection. Frequency: Daily. Amount used: 8 bags. Age of first use: 19. Date of Last Use: 08/23/17. Alcohol-erasmo/beer. Route: Oral. Frequency: Daily. Amount used: 1 pt./3-6 pks. Age of first use: 17. Date of Last Use: 08/24/17. Crystal meth. Route: Injection. Frequency : 1-3 times last 30 days. Amount used: $30-40. Age of first use: 26. Date of Last Use: 09/12/17. Marijuana. Route: Smoking. Frequency: 1-3 times last 30 days. Amount used: $5. Age of first use: 13. Date of Last Use: 08/24/17. CRACK/Cocaine. Route: Injection. Frequency: Daily. Amount used: $100. Age of first use: 21. Date of Last Use: 08/23/17 Medical History: Hepatitis C and GERD. Psychiatric History: History of two psychiatric hospitalizations at [facility] in [facility].Diagnosed with Bipolar Disorder.Treated in the past with various medications that include zoloft,trazodone,depakote and seroquel.Mr Gallardo admits to being chronically non-adherent to OPD care and medications.Has not taken medications for several months." I keep on using drugs and I don't want to mix medications and street drugs." Patient reports a distant history of suicide attempts (2010) via deliberate overdose with cocaine. Physical/Sexual Abuse/Trauma History: Patient denies. Additional Comment: Urine Drug Screen Results: THC-Marijuana, KM-Cocaine, OPI- Opiates.Noted. Mental Status Exam - Mental Status Exam Alert and Oriented to: Time, Place, Person Cognitive Function: Good Patient Appearance: Well Groomed Mood: Nervous, Anxious Affect: Mood Congruent Patient Behavior: Fatigued, Appropriate, Cooperative Speech Pattern: Clear, Appropriate Voice Loudness: Normal Thought Process: Intact, Goal Oriented Thought Disorder: Not Present Hallucinations: Denies Suicidal Ideation: Denies Homicidal Ideation: Denies Insight/Judgement: Poor Sleep: Well Appetite: Good Muscle strength/Tone: Normal Gait/Station: Normal Psychiatric Findings - Problem List ([place] 1, 2,3) (1) Opioid dependence with withdrawal Current Visit: Yes Status: Acute (2) Alcohol dependence with uncomplicated withdrawal Current Visit: Yes Status: Acute (3) Cocaine dependence Current Visit: Yes Status: Acute Qualifiers: Substance use status: uncomplicated Qualified Code(s): F14.20 - Cocaine dependence, uncomplicated (4) Marijuana dependence Current Visit: Yes Status: Acute (5) Nicotine dependence Current Visit: Yes Status: Acute Qualifiers: Nicotine product type: cigarettes Substance use status: in withdrawal Qualified Code(s): F17.213 - Nicotine dependence, cigarettes, with withdrawal (6) Substance induced mood disorder Current Visit: Yes Status: Acute (7) Bipolar disorder Current Visit: No Status: Chronic Comment: As per history.Patient is totally non-adherent to follow-up. (8) Insomnia Current Visit: Yes Status: Acute Qualifiers: Insomnia type: primary Qualified Code(s): F51.01 - Primary insomnia - Initial Treatment Plan Initial Treatment Plan: Psychoeducation.Sleep hygiene.Detoxification initiated.Medications : seroquel 50 mg po hs + trazodone 50 mg po hs + zoloft 50 mg po daily.Side effects/benefits of each medication were discussed with the patient,including the potential for priapism,suicidal ideation,sexual dysfunction,metabolic syndrome and abnormal involuntary movements.Consent ( verbal) given.Observation.
[2017-08-24] MEDS: chlordiazePOXIDE HCL 25 MG CAPSULE PO SCH ×2 (17:20→22:34)
[2017-08-24] MEDS: PANTOPRAZOLE 40 MG TABLET (FP) PO SCH (17:20)
[2017-08-24] MEDS: NICOTINE 21 MG/24 HOURS TOPICAL PATCH TD SCH (17:21)
[2017-08-24] MEDS ORDERED: QUEtiapine FUMARATE 25 MG TABLET (FP) ONE (21:21)
[2017-08-24] MEDS ORDERED: MELATONIN 5 MG TABLETS PO PRN (22:00)
[2017-08-24] MEDS: traZODone HCL 50 MG TABLET (FP) PO SCH (22:34)
[2017-08-24] MEDS: BACITRACIN 0.9 GM PACKET TP SCH (22:34)
[2017-08-24] MEDS: QUEtiapine FUMARATE 50 MG TABLET PO SCH (22:35)
[2017-08-24] MEDS: THIAMINE HCL 100 MG TABLET (FP) PO SCH (22:35)
[2017-08-25 01:25] LABS: URINE APPEARANCE CLEAR; URINE BILIRUBIN NEGATIVE (<2.0 mg/dL); URINE BLOOD NEGATIVE (NEGATIVE); URINE COLOR YELLOW; URINE GLUCOSE (UA) NEGATIVE (NEGATIVE); URINE KETONE NEGATIVE (NEGATIVE); URINE LEUK ESTERASE NEGATIVE (NEGATIVE); URINE NITRITE NEGATIVE (NEGATIVE); URINE PROTEIN NEGATIVE (NEGATIVE); URINE UROBILINOGEN NEGATIVE mg/dL (0.2-1.0)
[2017-08-25] MEDS: chlordiazePOXIDE HCL 25 MG CAPSULE PO SCH ×5 (05:33→22:34)
[2017-08-25] MEDS ORDERED: METHADONE HCL 10 MG TABLET (FOR DETOX USE ONLY) PO SCH (10:00)
[2017-08-25] MEDS: PRENATAL VITAMINS W/ FOLIC ACID TABLET (FP) PO SCH (10:29)
[2017-08-25] MEDS: NICOTINE 21 MG/24 HOURS TOPICAL PATCH TD SCH (10:29)
[2017-08-25] MEDS: PANTOPRAZOLE 40 MG TABLET (FP) PO SCH (10:29)
[2017-08-25] MEDS: BACITRACIN 0.9 GM PACKET TP SCH ×2 (10:29→22:31)
[2017-08-25] MEDS: SERTRALINE HCL 50 MG TABLET (FP) PO SCH (10:29)
--- NOTE | 2017-08-25 10:39 | EKG ---
Test Reason : Blood Pressure : / mmHG Vent. Rate : 065 BPM Atrial Rate : 065 BPM P-R Int : 158 ms QRS Dur : 110 ms QT Int : 418 ms P-R-T Axes : 052 087 056 degrees QTc Int : 434 ms NORMAL SINUS RHYTHM WITH SINUS ARRHYTHMIA NORMAL ECG WHEN COMPARED WITH ECG OF 23-JUL-2017 22:22, T WAVE AMPLITUDE HAS INCREASED IN LATERAL LEADS Confirmed by ANSHUL BAI, OBINNA ([id number]) on 08/25/2017 10:39:03 AM Referred By: Confirmed By:OBINNA LANDERS MD
[2017-08-25 11:29] LABS: CHLORIDE 101 mmol/L (98-107); POTASSIUM 4.1 mmol/L (3.5-5.1); SODIUM 140 mmol/L (136-145)
[2017-08-25 11:33] LABS: BASO % 1.1 % (0-2.0); EOS % 3.5 % (0-4.5); HEMATOCRIT 38.1 % (35.4-49); HEMOGLOBIN 13.1 GM/dL (11.7-16.9); LYMPH % 34.5 % (8-40); MCH 30.6 pg (25.7-33.7); MCHC 34.3 g/dl (32.0-35.9); MEAN PLT VOLUME 9.4 fl (7.5-11.1); MONO % 9.2 % (3.8-10.2); NEUT % 51.7 % (42.8-82.8); PLATELET COUNT 248 K/MM3 (134-434); RBC 4.28 M/mm3 (4.00-5.60); RDW 12.9 % (11.9-15.9); WHITE BLOOD COUNT 6.8 K/mm3 (4.0-10.0)
[2017-08-25 11:35] LABS: ALBUMIN 3.9 g/dl (3.4-5.0); ANION GAP 7 (8-16); BILIRUBIN,TOTAL 0.2 mg/dL (0.2-1.0); BLOOD UREA NITROGEN 12 mg/dL (7-18); CALCIUM 8.9 mg/dL (8.5-10.1); CO2 32 mmol/L (21-32); GLUCOSE,RANDOM 96 mg/dL (74-106); SGOT/AST 17 U/L (15-37); SGPT/ALT 21 U/L (12-78); TOT PROT 7.4 g/dl (6.4-8.2)
[2017-08-25 12:12] LABS: ALK PHOS 138 U/L (45-117)
--- NOTE | 2017-08-25 14:58 | PN ---
[facility] CIWA - CIWA Score Nausea/Vomitin-No Nausea/No Vomiting Muscle Tremors: None Anxiety: 4-Mod. Anxious/Guarded Agitation: 2 Paroxysmal Sweats: 3 Orientation: 0-Oriented Tacttile Disturbances: 3-Moderate Itch/Numb/Burn Auditory Disturbances: 0-None Visual Disturbances: 3-Moderate Sensitivity Headache: 0-None Present CIWA-Ar Total Score: 15 S COWS - Scale Resting Pulse: 0= [place] 80 or Below Sweatin= Chills/Flushing Restless Observation: 0= Sits Still Pupil Size: 0= Normal to Room Light Bone or Joint Aches: 4=Acute Joint/Muscle Pain Runny Nose/ Eye Tearin= None GI Upset > 30mins: 1= Stomach Cramp Tremor Observation of Outstretched Hands: 0= None Yawning Observation: 2= >3x During Session Anxiety or Irritability: 2=Irritable/Anxious Goose Flesh Skin: 3=Piloerection COWS Score: 13 S Progress Note (SOAP) Subjective: Body Aches, Anxious, Fatigue, Sweating, Objective: PATIENT A & O X 3. NO ACUTE DISTRESS. 08/25/17 14:56 Vital Signs Temperature 95.8 F L 08/25/17 13:13 Pulse Rate 73 08/25/17 13:13 Respiratory Rate 18 08/25/17 13:13 Blood Pressure 114/63 08/25/17 13:13 O2 Sat by Pulse Oximetry (%) Laboratory Tests 08/24/17 08/25/17 08/25/17 23:49 06:00 06:00 WBC 6.8 RBC 4.28 Hgb 13.1 Hct 38.1 MCV 89.0 MCH 30.6 MCHC 34.3 RDW 12.9 Plt Count 248 MPV 9.4 D Neutrophils % 51.7 Lymphocytes % 34.5 Monocytes % 9.2 Eosinophils % 3.5 Basophils % 1.1 Sodium 140 Potassium 4.1 Chloride 101 Carbon Dioxide 32 Anion Gap 7 L BUN 12 Creatinine 1.0 D Creat Clearance w eGFR > 60 Random Glucose 96 Calcium 8.9 Total Bilirubin 0.2 D AST 17 D ALT 21 D Alkaline Phosphatase 138 H D Total Protein 7.4 Albumin 3.9 Urine Color Yellow Urine Appearance Clear Urine pH 6.0 Ur Specific [place] 1.010 Urine Protein Negative Urine Glucose (UA) Negative Urine Ketones Negative Urine Blood Negative Urine Nitrite Negative Urine Bilirubin Negative Urine Urobilinogen Negative Ur Leukocyte Esterase Negative HIV 1&2 Antibody Screen HIV P24 Antigen 08/25/17 06:00 WBC RBC Hgb Hct MCV MCH MCHC RDW Plt Count MPV Neutrophils % Lymphocytes % Monocytes % Eosinophils % Basophils % Sodium Potassium Chloride Carbon Dioxide Anion Gap BUN Creatinine Creat Clearance w eGFR Random Glucose Calcium Total Bilirubin AST ALT Alkaline Phosphatase Total Protein Albumin Urine Color Urine Appearance Urine pH Ur Specific [place] Urine Protein Urine Glucose (UA) Urine Ketones Urine Blood Urine Nitrite Urine Bilirubin Urine Urobilinogen Ur Leukocyte Esterase HIV 1&2 Antibody Screen Negative HIV P24 Antigen Negative LABS NOTED. RPR RESULT PENDING. 08/25/17 14:57 Assessment: 08/25/17 14:57 WITHDRAWAL SYMPTOMS. Plan: CONTINUE DETOX.
[2017-08-25] MEDS: chlordiazePOXIDE HCL 25 MG CAPSULE PO PRN (15:42)
[2017-08-25 16:13] LABS: RPR NONREACTIVE (NONREACTIVE)
[2017-08-25] MEDS: QUEtiapine FUMARATE 50 MG TABLET PO SCH (22:31)
[2017-08-25] MEDS: traZODone HCL 50 MG TABLET (FP) PO SCH (22:31)
[2017-08-25] MEDS: THIAMINE HCL 100 MG TABLET (FP) PO SCH (22:32)
[2017-08-26] MEDS: chlordiazePOXIDE HCL 25 MG CAPSULE PO SCH ×2 (05:23→10:30)
[2017-08-26] MEDS: BACITRACIN 0.9 GM PACKET TP SCH ×2 (10:30→21:37)
[2017-08-26] MEDS: SERTRALINE HCL 50 MG TABLET (FP) PO SCH (10:30)
[2017-08-26] MEDS: PANTOPRAZOLE 40 MG TABLET (FP) PO SCH (10:30)
[2017-08-26] MEDS: METHADONE HCL 5 MG TABLET (FOR DETOX USE ONLY) PO SCH (10:30)
[2017-08-26] MEDS: PRENATAL VITAMINS W/ FOLIC ACID TABLET (FP) PO SCH (10:30)
[2017-08-26] MEDS: NICOTINE 21 MG/24 HOURS TOPICAL PATCH TD SCH (10:30)
[2017-08-26] MEDS: chlordiazePOXIDE HCL 25 MG CAPSULE PO PRN ×2 (12:29→19:56)
--- NOTE | 2017-08-26 16:01 | PN ---
[facility] CIWA - CIWA Score Nausea/Vomitin Muscle Tremors: 4-Moderate,w/Arms Extend Anxiety: 3 Agitation: 3 Paroxysmal Sweats: 3 Orientation: 0-Oriented Tacttile Disturbances: 1-Very Mild Itch/Numbness Auditory Disturbances: 0-None Visual Disturbances: 0-None Headache: 1-Very Mild CIWA-Ar Total Score: 18 [facility] COWS - Scale Resting Pulse: 0= [place] 80 or Below Sweatin=Flushed/Facial Moisture Restless Observation: 3= Extraneous Movement Pupil Size: 0= Normal to Room Light Bone or Joint Aches: 2= Severe Diffuse Aches Runny Nose/ Eye Tearin= Runny Nose/Eyes GI Upset > 30mins: 2= Nausea/Diarrhea Tremor Observation of Outstretched Hands: 2= Slight Tremor Visible Yawning Observation: 1= 1-2x During Session Anxiety or Irritability: 2=Irritable/Anxious Goose Flesh Skin: 0=Smooth Skin COWS Score: 16 S Progress Note (SOAP) Subjective: Sweating, chills, headache Objective: 08/26/17 16:00 Last Vital Signs Temp Pulse Resp BP Pulse Ox 96.4 F L 70 16 111/64 08/26/17 14:32 08/26/17 14:32 08/26/17 14:32 08/26/17 14:32 Laboratory Tests 08/24/17 08/25/17 08/25/17 23:49 06:00 06:00 WBC 6.8 RBC 4.28 Hgb 13.1 Hct 38.1 MCV 89.0 MCH 30.6 MCHC 34.3 RDW 12.9 Plt Count 248 MPV 9.4 D Neutrophils % 51.7 Lymphocytes % 34.5 Monocytes % 9.2 Eosinophils % 3.5 Basophils % 1.1 Sodium 140 Potassium 4.1 Chloride 101 Carbon Dioxide 32 Anion Gap 7 L BUN 12 Creatinine 1.0 D Creat Clearance w eGFR > 60 Random Glucose 96 Calcium 8.9 Total Bilirubin 0.2 D AST 17 D ALT 21 D Alkaline Phosphatase 138 H D Total Protein 7.4 Albumin 3.9 Urine Color Yellow Urine Appearance Clear Urine pH 6.0 Ur Specific [place] 1.010 Urine Protein Negative Urine Glucose (UA) Negative Urine Ketones Negative Urine Blood Negative Urine Nitrite Negative Urine Bilirubin Negative Urine Urobilinogen Negative Ur Leukocyte Esterase Negative RPR Titer HIV 1&2 Antibody Screen HIV P24 Antigen 08/25/17 06:00 WBC RBC Hgb Hct MCV MCH MCHC RDW Plt Count MPV Neutrophils % Lymphocytes % Monocytes % Eosinophils % Basophils % Sodium Potassium Chloride Carbon Dioxide Anion Gap BUN Creatinine Creat Clearance w eGFR Random Glucose Calcium Total Bilirubin AST ALT Alkaline Phosphatase Total Protein Albumin Urine Color Urine Appearance Urine pH Ur Specific [place] Urine Protein Urine Glucose (UA) Urine Ketones Urine Blood Urine Nitrite Urine Bilirubin Urine Urobilinogen Ur Leukocyte Esterase RPR Titer Nonreactive HIV 1&2 Antibody Screen Negative HIV P24 Antigen Negative Labs reviewed Assessment: 08/26/17 16:00 Withdrawal symptoms Plan: Continue detox Encouraged to drink more water for hydration
[2017-08-26] MEDS: chlordiazePOXIDE 5 MG CAPSULE PO SCH ×2 (17:36→22:40)
[2017-08-26] MEDS: traZODone HCL 50 MG TABLET (FP) PO SCH (21:37)
[2017-08-26] MEDS: QUEtiapine FUMARATE 50 MG TABLET PO SCH (21:37)
[2017-08-26] MEDS: THIAMINE HCL 100 MG TABLET (FP) PO SCH (22:41)
[2017-08-27] MEDS: chlordiazePOXIDE 5 MG CAPSULE PO SCH ×2 (05:42→10:00)
[2017-08-27] MEDS: BACITRACIN 0.9 GM PACKET TP SCH ×2 (10:00→22:00)
[2017-08-27] MEDS: PRENATAL VITAMINS W/ FOLIC ACID TABLET (FP) PO SCH (10:00)
[2017-08-27] MEDS: METHADONE HCL 5 MG TABLET (FOR DETOX USE ONLY) PO SCH (10:00)
[2017-08-27] MEDS: SERTRALINE HCL 50 MG TABLET (FP) PO SCH (10:01)
[2017-08-27] MEDS: NICOTINE 21 MG/24 HOURS TOPICAL PATCH TD SCH (10:01)
[2017-08-27] MEDS: PANTOPRAZOLE 40 MG TABLET (FP) PO SCH (10:01)
--- NOTE | 2017-08-27 11:46 | PN ---
[facility] Progress Note (SOAP) Subjective: ANXIETY,SWEATS,FATIGUE. Objective: 08/27/17 11:46 Vital Signs Temperature 95.3 F L 08/27/17 09:26 Pulse Rate 84 08/27/17 09:26 Respiratory Rate 20 08/27/17 09:26 Blood Pressure 116/63 08/27/17 09:26 O2 Sat by Pulse Oximetry (%) Laboratory Last Values WBC 6.8 K/mm3 (4.0-10.0) 08/25/17 06:00 RBC 4.28 M/mm3 (4.00-5.60) 08/25/17 06:00 Hgb 13.1 GM/dL (11.7-16.9) 08/25/17 06:00 Hct 38.1 % (35.4-49) 08/25/17 06:00 MCV 89.0 fl (80-96) 08/25/17 06:00 MCH 30.6 pg (25.7-33.7) 08/25/17 06:00 MCHC 34.3 g/dl (32.0-35.9) 08/25/17 06:00 RDW 12.9 % (11.9-15.9) 08/25/17 06:00 Plt Count 248 K/MM3 (134-434) 08/25/17 06:00 MPV 9.4 fl (7.5-11.1) D 08/25/17 06:00 Neutrophils % 51.7 % (42.8-82.8) 08/25/17 06:00 Lymphocytes % 34.5 % (8-40) 08/25/17 06:00 Monocytes % 9.2 % (3.8-10.2) 08/25/17 06:00 Eosinophils % 3.5 % (0-4.5) 08/25/17 06:00 Basophils % 1.1 % (0-2.0) 08/25/17 06:00 Sodium 140 mmol/L (136-145) 08/25/17 06:00 Potassium 4.1 mmol/L (3.5-5.1) 08/25/17 06:00 Chloride 101 mmol/L (98-107) 08/25/17 06:00 Carbon Dioxide 32 mmol/L (21-32) 08/25/17 06:00 Anion Gap 7 (8-16) L 08/25/17 06:00 BUN 12 mg/dL (7-18) 08/25/17 06:00 Creatinine 1.0 mg/dL (0.7-1.3) D 08/25/17 06:00 Creat Clearance w eGFR > 60 (>60) 08/25/17 06:00 Random Glucose 96 mg/dL (74-106) 08/25/17 06:00 Calcium 8.9 mg/dL (8.5-10.1) 08/25/17 06:00 Total Bilirubin 0.2 mg/dL (0.2-1.0) D 08/25/17 06:00 AST 17 U/L (15-37) D 08/25/17 06:00 ALT 21 U/L (12-78) D 08/25/17 06:00 Alkaline Phosphatase 138 U/L (45-117) H D 08/25/17 06:00 Total Protein 7.4 g/dl (6.4-8.2) 08/25/17 06:00 Albumin 3.9 g/dl (3.4-5.0) 08/25/17 06:00 Urine Color Yellow 08/24/17 23:49 Urine Appearance Clear 08/24/17 23:49 Urine pH 6.0 (5.0-8.0) 08/24/17 23:49 Ur Specific [place] 1.010 (1.001-1.035) 08/24/17 23:49 Urine Protein Negative (NEGATIVE) 08/24/17 23:49 Urine Glucose (UA) Negative (NEGATIVE) 08/24/17 23:49 Urine Ketones Negative (NEGATIVE) 08/24/17 23:49 Urine Blood Negative (NEGATIVE) 08/24/17 23:49 Urine Nitrite Negative (NEGATIVE) 08/24/17 23:49 Urine Bilirubin Negative (<2.0 mg/dL) 08/24/17 23:49 Urine Urobilinogen Negative mg/dL (0.2-1.0) 08/24/17 23:49 Ur Leukocyte Esterase Negative (NEGATIVE) 08/24/17 23:49 RPR Titer Nonreactive (NONREACTIVE) 08/25/17 06:00 HIV 1&2 Antibody Screen Negative 08/25/17 06:00 HIV P24 Antigen Negative 08/25/17 06:00 Assessment: 08/27/17 11:46 WITHDRAWAL SX Plan: CONTINUE DETOX INCREASE PO FLUIDS
[2017-08-27] MEDS: chlordiazePOXIDE HCL 25 MG CAPSULE PO PRN (12:46)
[2017-08-27] MEDS: chlordiazePOXIDE HCL 10 MG CAPSULE PO SCH ×2 (16:35→22:01)
[2017-08-27] MEDS: QUEtiapine FUMARATE 50 MG TABLET PO SCH (22:00)
[2017-08-27] MEDS: THIAMINE HCL 100 MG TABLET (FP) PO SCH (22:00)
[2017-08-27] MEDS: traZODone HCL 50 MG TABLET (FP) PO SCH (22:01)
[2017-08-28] MEDS: chlordiazePOXIDE HCL 10 MG CAPSULE PO SCH ×2 (05:40→10:34)
[2017-08-28] MEDS ORDERED: METHADONE HCL 10 MG TABLET (FOR DETOX USE ONLY) PO SCH (10:00)
[2017-08-28] MEDS: NICOTINE 21 MG/24 HOURS TOPICAL PATCH TD SCH (10:35)
[2017-08-28] MEDS: BACITRACIN 0.9 GM PACKET TP SCH (10:35)
[2017-08-28] MEDS: PRENATAL VITAMINS W/ FOLIC ACID TABLET (FP) PO SCH (10:35)
[2017-08-28] MEDS: PANTOPRAZOLE 40 MG TABLET (FP) PO SCH (10:35)
[2017-08-28] MEDS: SERTRALINE HCL 50 MG TABLET (FP) PO SCH (10:35)
--- NOTE | 2017-08-28 12:15 | PN ---
[facility] Progress Note (SOAP) Subjective: DETOX PROCEEDING WELL. SLIGHT ANXIETY,FATIGUE. STATES HE HAS BEEN SPEAKING TO HIS COUNSELOR ABOUT AFTERCARE. Objective: 08/28/17 12:14 Vital Signs Temperature 95.0 F L 08/28/17 09:51 Pulse Rate 88 08/28/17 09:51 Respiratory Rate 20 08/28/17 09:51 Blood Pressure 122/69 08/28/17 09:51 O2 Sat by Pulse Oximetry (%) Laboratory Last Values WBC 6.8 K/mm3 (4.0-10.0) 08/25/17 06:00 RBC 4.28 M/mm3 (4.00-5.60) 08/25/17 06:00 Hgb 13.1 GM/dL (11.7-16.9) 08/25/17 06:00 Hct 38.1 % (35.4-49) 08/25/17 06:00 MCV 89.0 fl (80-96) 08/25/17 06:00 MCH 30.6 pg (25.7-33.7) 08/25/17 06:00 MCHC 34.3 g/dl (32.0-35.9) 08/25/17 06:00 RDW 12.9 % (11.9-15.9) 08/25/17 06:00 Plt Count 248 K/MM3 (134-434) 08/25/17 06:00 MPV 9.4 fl (7.5-11.1) D 08/25/17 06:00 Neutrophils % 51.7 % (42.8-82.8) 08/25/17 06:00 Lymphocytes % 34.5 % (8-40) 08/25/17 06:00 Monocytes % 9.2 % (3.8-10.2) 08/25/17 06:00 Eosinophils % 3.5 % (0-4.5) 08/25/17 06:00 Basophils % 1.1 % (0-2.0) 08/25/17 06:00 Sodium 140 mmol/L (136-145) 08/25/17 06:00 Potassium 4.1 mmol/L (3.5-5.1) 08/25/17 06:00 Chloride 101 mmol/L (98-107) 08/25/17 06:00 Carbon Dioxide 32 mmol/L (21-32) 08/25/17 06:00 Anion Gap 7 (8-16) L 08/25/17 06:00 BUN 12 mg/dL (7-18) 08/25/17 06:00 Creatinine 1.0 mg/dL (0.7-1.3) D 08/25/17 06:00 Creat Clearance w eGFR > 60 (>60) 08/25/17 06:00 Random Glucose 96 mg/dL (74-106) 08/25/17 06:00 Calcium 8.9 mg/dL (8.5-10.1) 08/25/17 06:00 Total Bilirubin 0.2 mg/dL (0.2-1.0) D 08/25/17 06:00 AST 17 U/L (15-37) D 08/25/17 06:00 ALT 21 U/L (12-78) D 08/25/17 06:00 Alkaline Phosphatase 138 U/L (45-117) H D 08/25/17 06:00 Total Protein 7.4 g/dl (6.4-8.2) 08/25/17 06:00 Albumin 3.9 g/dl (3.4-5.0) 08/25/17 06:00 Urine Color Yellow 08/24/17 23:49 Urine Appearance Clear 08/24/17 23:49 Urine pH 6.0 (5.0-8.0) 08/24/17 23:49 Ur Specific [place] 1.010 (1.001-1.035) 08/24/17 23:49 Urine Protein Negative (NEGATIVE) 08/24/17 23:49 Urine Glucose (UA) Negative (NEGATIVE) 08/24/17 23:49 Urine Ketones Negative (NEGATIVE) 08/24/17 23:49 Urine Blood Negative (NEGATIVE) 08/24/17 23:49 Urine Nitrite Negative (NEGATIVE) 08/24/17 23:49 Urine Bilirubin Negative (<2.0 mg/dL) 08/24/17 23:49 Urine Urobilinogen Negative mg/dL (0.2-1.0) 08/24/17 23:49 Ur Leukocyte Esterase Negative (NEGATIVE) 08/24/17 23:49 RPR Titer Nonreactive (NONREACTIVE) 08/25/17 06:00 HIV 1&2 Antibody Screen Negative 08/25/17 06:00 HIV P24 Antigen Negative 04/07/18 06:00 Assessment: 08/28/17 12:15 WITHDRAWAL SX Plan: CONTINUE DETOX
[2017-08-28 14:19] VITALS: BP 121/70; PULSE 85; TEMP 97.6
--- NOTE | 2017-08-28 16:13 | DS ---
[facility] Detox Discharge Summary Admission Date: 08/24/17 Discharge Date: 08/28/17 - History Present History: Alcohol Dependence, Cannabis Dependence, Cocaine Dependence, Opioid Dependence Additional Comments: PT REPORTS HE HAS BEEN SUMMONED TO ATTEND COURT TOMORROW IN [place], [place]. PT AND HIS COUNSELOR MET AND DISCUSSED AFTERCARE AND THERE IS A MULTIDISCIPLINARY TEAM CONSENSUS WITH THIS DATA CENTER TECHNICIAN FOR PATIENT TO D/C TODAY INSTEAD OF IN AM DUE TO DISTANCE IN ORDER TO ATTEND COURT AT [place], [place] AT 9:00 A.M IN THE MORNING. PT DENIES ANY DISCOMFORT AND READY TO FOLLOW UP WITH AFTERCARE AT [facility] AFTER COURT ATTENDANCE TOMORROW. ALERT O X 3. OOB AMBULATING WITH STEADY GAIT. Pertinent Past History: PLEASE SEE DX BELOW - Physical Exam Results Vital Signs: Vital Signs Temperature 97.6 F 08/28/17 14:18 Pulse Rate 85 08/28/17 14:18 Respiratory Rate 20 08/28/17 14:18 Blood Pressure 121/70 08/28/17 14:18 O2 Sat by Pulse Oximetry (%) Pertinent Admission Physical Exam Findings: WITHDRAWAL SX Laboratory Last Values WBC 6.8 K/mm3 (4.0-10.0) 08/25/17 06:00 RBC 4.28 M/mm3 (4.00-5.60) 08/25/17 06:00 Hgb 13.1 GM/dL (11.7-16.9) 08/25/17 06:00 Hct 38.1 % (35.4-49) 08/25/17 06:00 MCV 89.0 fl (80-96) 08/25/17 06:00 MCH 30.6 pg (25.7-33.7) 08/25/17 06:00 MCHC 34.3 g/dl (32.0-35.9) 08/25/17 06:00 RDW 12.9 % (11.9-15.9) 08/25/17 06:00 Plt Count 248 K/MM3 (134-434) 08/25/17 06:00 MPV 9.4 fl (7.5-11.1) D 08/25/17 06:00 Neutrophils % 51.7 % (42.8-82.8) 08/25/17 06:00 Lymphocytes % 34.5 % (8-40) 08/25/17 06:00 Monocytes % 9.2 % (3.8-10.2) 08/25/17 06:00 Eosinophils % 3.5 % (0-4.5) 08/25/17 06:00 Basophils % 1.1 % (0-2.0) 08/25/17 06:00 Sodium 140 mmol/L (136-145) 08/25/17 06:00 Potassium 4.1 mmol/L (3.5-5.1) 08/25/17 06:00 Chloride 101 mmol/L (98-107) 08/25/17 06:00 Carbon Dioxide 32 mmol/L (21-32) 08/25/17 06:00 Anion Gap 7 (8-16) L 08/25/17 06:00 BUN 12 mg/dL (7-18) 08/25/17 06:00 Creatinine 1.0 mg/dL (0.7-1.3) D 08/25/17 06:00 Creat Clearance w eGFR > 60 (>60) 08/25/17 06:00 Random Glucose 96 mg/dL (74-106) 08/25/17 06:00 Calcium 8.9 mg/dL (8.5-10.1) 08/25/17 06:00 Total Bilirubin 0.2 mg/dL (0.2-1.0) D 08/25/17 06:00 AST 17 U/L (15-37) D 08/25/17 06:00 ALT 21 U/L (12-78) D 08/25/17 06:00 Alkaline Phosphatase 138 U/L (45-117) H D 08/25/17 06:00 Total Protein 7.4 g/dl (6.4-8.2) 08/25/17 06:00 Albumin 3.9 g/dl (3.4-5.0) 08/25/17 06:00 Urine Color Yellow 08/24/17 23:49 Urine Appearance Clear 08/24/17 23:49 Urine pH 6.0 (5.0-8.0) 08/24/17 23:49 Ur Specific [place] 1.010 (1.001-1.035) 08/24/17 23:49 Urine Protein Negative (NEGATIVE) 08/24/17 23:49 Urine Glucose (UA) Negative (NEGATIVE) 08/24/17 23:49 Urine Ketones Negative (NEGATIVE) 08/24/17 23:49 Urine Blood Negative (NEGATIVE) 08/24/17 23:49 Urine Nitrite Negative (NEGATIVE) 08/24/17 23:49 Urine Bilirubin Negative (<2.0 mg/dL) 08/24/17 23:49 Urine Urobilinogen Negative mg/dL (0.2-1.0) 08/24/17 23:49 Ur Leukocyte Esterase Negative (NEGATIVE) 08/24/17 23:49 RPR Titer Nonreactive (NONREACTIVE) 08/25/17 06:00 HIV 1&2 Antibody Screen Negative 08/25/17 06:00 HIV P24 Antigen Negative 08/25/17 06:00 - Treatment Hospital Course: Detox Protocol Followed, Detoxed Safely, Responded well, Discharged Condition Good, Rehab Referral Accepted Patient has Accepted a Rehab Referral to: [facility] - Medication Discharge Medications: Ambulatory Orders Sertraline HCl [Zoloft -] 100 mg PO DAILY 07/23/17 traZODone HCL [Desyrel -] 150 mg PO HS 07/23/17 Omeprazole 20 mg PO DAILY 08/24/17 Quetiapine Fumarate [Seroquel -] 25 mg PO AM 08/24/17 Quetiapine Fumarate [Seroquel -] 50 mg PO HS 08/24/17 - Diagnosis (1) Alcohol dependence with uncomplicated withdrawal Current Visit: Yes Status: Acute (2) Cocaine dependence Current Visit: Yes Status: Chronic Qualifiers: Substance use status: uncomplicated Qualified Code(s): F14.20 - Cocaine dependence, uncomplicated (3) Marijuana dependence Current Visit: Yes Status: Chronic (4) Nicotine dependence Current Visit: Yes Status: Chronic Qualifiers: Nicotine product type: cigarettes Substance use status: in withdrawal Qualified Code(s): F17.213 - Nicotine dependence, cigarettes, with withdrawal (5) Opioid dependence with withdrawal Current Visit: Yes Status: Acute (6) Depression Current Visit: Yes Status: Chronic Qualifiers: Depression Type: unspecified Qualified Code(s): F32.9 - Major depressive disorder, single episode, unspecified (7) Insomnia Current Visit: Yes Status: Chronic Qualifiers: Insomnia type: primary Qualified Code(s): F51.01 - Primary insomnia - AMA Did Patient Leave Against Medical Advice: No
[2017-08-29] MEDS ORDERED: METHADONE HCL 5 MG TABLET (FOR DETOX USE ONLY) PO SCH (06:00)
== END 2017-08-28 16:40 | disposition home or self-care (01) | DRG 773 ==
LOC: YASAS 08:51 → Y3N 15:30
PROVIDERS: ADMIT Internal Medicine; ATTEND Internal Medicine
PROC: HZ2ZZZZ Detoxification Services for Substance Abuse Treatment (ICD-10-PCS; principal; 2017-08-24)
DX: F11.23 Opioid dependence with withdrawal (principal); F10.230 Alcohol dependence with withdrawal, uncomplicated; F14.20 Cocaine dependence, uncomplicated; F12.20 Cannabis dependence, uncomplicated; F17.213 Nicotine dependence, cigarettes, with withdrawal; F51.05 Insomnia due to other mental disorder; F31.9 Bipolar disorder, unspecified; Z59.0 Homelessness
CPT/HCPCS: 36415; 80053; 81003; 85025; 86593; 87389; 93005; 93010

== ENCOUNTER 2017-09-01 08:40 | Inpatient (IN) | payer OTHER ==
[2017-09-01 10:10] VITALS: BMI 22.4
--- NOTE | 2017-09-01 10:37 | HP ---
COWS - Scale Resting Pulse: 1= CT 81-100 Sweatin= Chills/Flushing Restless Observation: 0= Sits Still Pupil Size: 0= Normal to Room Light Bone or Joint Aches: 1= Mild Discomfort Runny Nose/ Eye Tearin= Runny Nose/Eyes GI Upset > 30mins: 2= Nausea/Diarrhea Tremor Observation: 2= Slight Tremor Visible Yawning Observation: 1= 1-2x During Session Anxiety or Irritability: 2=Irritable/Anxious Goose Flesh Skin: 0=Smooth Skin COWS Score: 12 CIWA Score - CIWA Score Nausea/Vomitin-Mild Nausea/No Vomiting Muscle Tremors: 3 Anxiety: 4-Mod. Anxious/Guarded Agitation: 0-Normal Activity Paroxysmal Sweats: 1-Minimal Palms Moist Orientation: 1-Uncertain about Date Tacttile Disturbances: 1-Very Mild Itch/Numbness Auditory Disturbances: 1-Very Mild Visual Disturbances: 1-Very Mild Sensitivity Headache: 1-Very Mild CIWA-Ar Total Score: 14 Admission ROS BHS - HPI Chief Complaint: I need help, I can't stop - my brain just goes for it Allergies/Adverse Reactions: Allergies Allergy/AdvReac Type Severity Reaction Status Date / Time No Known Allergies Allergy Verified 09/01/17 11:19 History of Present Illness: 26 yo gentleman here for detox from alcohol and heroin. Patient was here for detox 08/24-08/28/17 - he had to go to court then go to [facility] in [place] - he states he never made it to [facility] and started using. This is one of multiple admissions for detox. Denies overdose or seizures but does have black outs. Left ankle with some swelling - he does not remember twisting/spraining it - he thinks it is from 'walking 12 miles' to get here - will monitor after resting, ice. Exam Limitations: Clinical Condition - Ebola screening Have you traveled outside of the country in the last 21 days: No (N) Have you had contact with anyone from an Ebola affected area: No Have you been sick,other than usual withdrawal symptoms: No Do you have a fever: No Patient History - Patient Medical History Hx Anemia: No Hx Asthma: No Hx Chronic Obstructive Pulmonary Disease (COPD): No Hx Cancer: No Hx Cardiac Disorders: No Hx Congestive Heart Failure: No Hx Hypertension: No Hx Hypercholesterolemia: No Hx Pacemaker: No HX Cerebrovascular Accident: No Hx Seizures: No Hx Dementia: No Hx Diabetes: No Hx Gastrointestinal Disorders: Yes (acid reflux-) Hx Liver Disease: No Hx Genitourinary Disorders: No Hx Sexually Transmitted Disorders: No Hx Renal Disease (ESRD): No Hx Thyroid Disease: No Hx Human Immunodeficiency Virus (HIV): No (Negative hx) Hx Hepatitis C: Yes (never treated) Hx Depression: Yes Hx Suicide Attempt: No (denies) Hx Bipolar Disorder: Yes (hx of meds) Hx Schizophrenia: No - Patient Surgical History Past Surgical History: No Hx Neurologic Surgery: No Hx Cataract Extraction: No Hx Cardiac Surgery: No Hx Lung Surgery: No Hx Breast Surgery: No Hx Breast Biopsy: No Hx Abdominal Surgery: No Hx Appendectomy: No Hx Cholecystectomy: No Hx Genitourinary Surgery: No Hx Section: No Hx Orthopedic Surgery: No Anesthesia Reaction: No - PPD History Previous Implant?: Yes Documented Results: Negative w/proof Implanted On Prior R Admission?: Yes Date: 07/25/17 Results: 0 mm PPD to be Administered?: Yes - Reproductive History Patient is a Female of Child Bearing Age (11 -55 yrs old): No (male) - Smoking Cessation Smoking history: Current every day smoker Have you smoked in the past 12 months: Yes Aproximately how many cigarettes per day: 20 Cigars Per Day: 0 Hx Chewing Tobacco Use: No Initiated information on smoking cessation: Yes 'Breaking Loose' booklet given: 09/01/17 (give on floor) - Substance & Tx. History Hx Alcohol Use: Yes Hx Substance Use: Yes Substance Use Type: Alcohol, Cocaine, Heroin, Marijuana Hx Substance Use Treatment: Yes (detox, rehab) - Substances Abused heroin Route: Injection Frequency: Daily Amount used: 4 bags Age of first use: 19 Date of Last Use: 08/31/17 alcohol Route: Oral Frequency: Daily Amount used: four 24 oz beer Age of first use: 13 Date of Last Use: 08/31/17 cocaine Route: Injection Frequency: Daily Amount used: 4g Age of first use: 19 Date of Last Use: 08/31/17 marijuana Route: Smoking Frequency: Daily Amount used: 2 blunts Age of first use: 13 Date of Last Use: 08/31/17 Methamphetamine Route: Smoking Frequency: 1-2 times per week Amount used: $50 Age of first use: 26 Date of Last Use: 08/30/17 Family Disease History - Family Disease History Family Disease History: Other: Father (etoh, living), Mother (etoh, living), Brother (2 living healthy) Admission Physical Exam [facility] - Vital Signs Vital Signs: Vital Signs - 24 hr 09/01/17 10:08 Temperature 97 F L Pulse Rate 85 Respiratory 18 Rate Blood Pressure 131/74 - Physical General Appearance: Yes: Nourished, Appropriately Dressed, Mild Distress, Thin, Anxious HEENTM: Yes: Normocephalic, Normal Voice, Pharynx Normal, Muffled/Hoarse Voice Respiratory: Yes: Normal Breath Sounds, No Respiratory Distress Neck: Yes: No masses,lesions,Nodules Breast: Yes: Breast Exam Deferred Cardiology: Yes: Regular Rhythm, Regular Rate Abdominal: Yes: Non Tender, Flat Genitourinary: Yes: Frequency Back: Yes: Normal Inspection Musculoskeletal: Yes: Joint Stiffness, Joint swelling (left outer ankle with swelling,tenderness - no echymosis, able to flex and extend foot), Other ( limping) Extremities: Yes: Tremors 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: Yes: Fully Oriented, Alert, Normal Mood/Affect, Normal Response Integumentary: Yes: Normal Color, Warm, Track Posey (left antecubital space - no abscess noted) Lymphatic: Yes: Within Normal Limits - Diagnostic (1) Opioid dependence with withdrawal Current Visit: Yes Status: Acute (2) Alcohol dependence with uncomplicated withdrawal Current Visit: Yes Status: Chronic (3) Cocaine dependence Current Visit: Yes Status: Chronic Qualifiers: Substance use status: uncomplicated Qualified Code(s): F14.20 - Cocaine dependence, uncomplicated (4) Marijuana dependence Current Visit: Yes Status: Chronic (5) Hepatitis C Current Visit: Yes Status: Chronic Qualifiers: Viral hepatitis chronicity: chronic Hepatic coma status: without hepatic coma Qualified Code(s): B18.2 - Chronic viral hepatitis C Comment: never treated (6) Left ankle swelling Current Visit: Yes Status: Acute (7) Nicotine dependence Current Visit: Yes Status: Chronic Qualifiers: Nicotine product type: cigarettes Substance use status: uncomplicated Qualified Code(s): F17.210 - Nicotine dependence, cigarettes, uncomplicated Cleared for Admission [facility] - Detox or Rehab [facility] Level of Care: Medically Managed Detox Regimen/Protocol: Methadone/Librium BHS Breath Alcohol Content Breath Alcohol Content: 0 Urine Drug Screen - Results Drug Screen Negative: No Urine Drug Screen Results: THC-Marijuana, KM-Cocaine, OPI-Opiates, AMP- Amphetamines, MET-Methamphetamine, BZO-Benzodiazepines, MTD-Methadone
[2017-09-01] MEDS ORDERED: P-EPHED 60MG/TRIPROLIDI 2.5MG TABLET PO PRN (10:51)
[2017-09-01] MEDS ORDERED: NICOTINE POLACRILEX 4 MG GUM BUC PRN (10:51)
[2017-09-01] MEDS ORDERED: MAGNESIUM CITRATE 300 ML BOTTLE PO PRN (10:51)
[2017-09-01] MEDS ORDERED: MAGNESIUM HYDROX 2400MG/30ML ORAL SUSPENSION 30 ML CUP PO PRN (10:51)
[2017-09-01] MEDS ORDERED: MAG HYDROX/AL HYDROX/SIMETH 30 ML UNIT-DOSE CUP PO PRN (10:51)
[2017-09-01] MEDS ORDERED: LOPERAMIDE HCL 2 MG CAPSULE PO PRN (10:51)
[2017-09-01] MEDS ORDERED: guaiFENesin/D-METHORPHAN HB 10 ML UNIT-DOSE CUPS PO PRN (10:51)
[2017-09-01] MEDS ORDERED: MENTHOL/PHENOL 1 EACH UD MM PRN (10:51)
[2017-09-01] MEDS ORDERED: ACETAMINOPHEN 325 MG TABLET (FP) PO PRN (11:09)
[2017-09-01] MEDS ORDERED: chlordiazePOXIDE HCL 25 MG CAPSULE PO ONE (12:30)
[2017-09-01] MEDS ORDERED: METHADONE HCL 10 MG TABLET (FOR DETOX USE ONLY) PO ONE ×2 (12:30→23:00)
[2017-09-01 16:58] LABS: URINE APPEARANCE TURBID; URINE BILIRUBIN NEGATIVE (<2.0 mg/dL); URINE BLOOD NEGATIVE (NEGATIVE); URINE COLOR YELLOW; URINE GLUCOSE (UA) NEGATIVE (NEGATIVE); URINE KETONE TRACE (NEGATIVE); URINE LEUK ESTERASE NEGATIVE (NEGATIVE); URINE NITRITE NEGATIVE (NEGATIVE); URINE PROTEIN NEGATIVE (NEGATIVE)
[2017-09-01] MEDS: chlordiazePOXIDE HCL 25 MG CAPSULE PO SCH ×2 (18:07→22:35)
[2017-09-01] MEDS: chlordiazePOXIDE HCL 25 MG CAPSULE PO PRN (20:06)
[2017-09-01] MEDS ORDERED: MELATONIN 5 MG TABLETS PO PRN (22:00)
[2017-09-01] MEDS: THIAMINE HCL 100 MG TABLET (FP) PO SCH (22:35)
[2017-09-02] MEDS: chlordiazePOXIDE HCL 25 MG CAPSULE PO SCH ×4 (05:46→22:17)
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
[2017-09-02] MEDS: chlordiazePOXIDE HCL 25 MG CAPSULE PO PRN ×2 (09:07→13:09)
[2017-09-02] MEDS ORDERED: METHADONE HCL 10 MG TABLET (FOR DETOX USE ONLY) PO SCH (10:00)
[2017-09-02] MEDS: PRENATAL VITAMINS W/ FOLIC ACID TABLET (FP) PO SCH (10:35)
[2017-09-02 10:37] LABS: HEMATOCRIT 36.3 % (35.4-49); HEMOGLOBIN 12.8 GM/dL (11.7-16.9); MCH 31.1 pg (25.7-33.7); MCHC 35.4 g/dl (32.0-35.9); MEAN CELL VOLUME 87.9 fl (80-96); MEAN PLT VOLUME 8.5 fl (7.5-11.1); PLATELET COUNT 208 K/MM3 (134-434); RBC 4.12 M/mm3 (4.00-5.60); WHITE BLOOD COUNT 4.8 K/mm3 (4.0-10.0)
[2017-09-02 10:46] LABS: ALBUMIN 3.3 g/dl (3.4-5.0); ANION GAP 3 (8-16); BLOOD UREA NITROGEN 13 mg/dL (7-18); CALCIUM 8.3 mg/dL (8.5-10.1); CHLORIDE 107 mmol/L (98-107); CO2 31 mmol/L (21-32); GLUCOSE,RANDOM 97 mg/dL (74-106); SODIUM 141 mmol/L (136-145)
[2017-09-02 10:50] LABS: ALK PHOS 101 U/L (45-117); BILIRUBIN,TOTAL 0.3 mg/dL (0.2-1.0); CREATININE 0.6 mg/dL (0.7-1.3); SGOT/AST 20 U/L (15-37); SGPT/ALT 36 U/L (12-78); TOT PROT 6.3 g/dl (6.4-8.2)
[2017-09-02] MEDS: SERTRALINE HCL 50 MG TABLET (FP) PO SCH (11:40)
[2017-09-02] MEDS: IBUPROFEN 400 MG TABLET (FP) PO PRN (11:41)
[2017-09-02] MEDS: hydrOXYzine PAMOATE 50 MG CAPSULE (FP) PO PRN (11:41)
--- NOTE | 2017-09-02 11:56 | PN ---
[facility] CIWA - CIWA Score Nausea/Vomitin-Mild Nausea/No Vomiting Muscle Tremors: 3 Anxiety: 3 Agitation: 3 Paroxysmal Sweats: 1-Minimal Palms Moist Orientation: 0-Oriented Tacttile Disturbances: 1-Very Mild Itch/Numbness Auditory Disturbances: 0-None Visual Disturbances: 0-None Headache: 0-None Present CIWA-Ar Total Score: 12 [facility] COWS - Scale Resting Pulse: 0= [place] 80 or Below Sweatin= Chills/Flushing Restless Observation: 1= Difficult to Sit Still Pupil Size: 0= Normal to Room Light Bone or Joint Aches: 1= Mild Discomfort Runny Nose/ Eye Tearin= Nasal Congestion GI Upset > 30mins: 2= Nausea/Diarrhea Tremor Observation of Outstretched Hands: 2= Slight Tremor Visible Yawning Observation: 1= 1-2x During Session Anxiety or Irritability: 2=Irritable/Anxious Goose Flesh Skin: 0=Smooth Skin COWS Score: 11 [facility] Progress Note (SOAP) Subjective: joint pain body ache sweat tremor restlessness anxiety trouble sleeping Objective: 09/02/17 11:55 Vital Signs Temperature 97.3 F L 09/02/17 06:58 Pulse Rate 66 09/02/17 06:58 Respiratory Rate 16 09/02/17 06:58 Blood Pressure 101/50 09/02/17 06:58 O2 Sat by Pulse Oximetry (%) Laboratory Last Values WBC 4.8 K/mm3 (4.0-10.0) 09/02/17 07:30 RBC 4.12 M/mm3 (4.00-5.60) 09/02/17 07:30 Hgb 12.8 GM/dL (11.7-16.9) 09/02/17 07:30 Hct 36.3 % (35.4-49) 09/02/17 07:30 MCV 87.9 fl (80-96) 09/02/17 07:30 MCH 31.1 pg (25.7-33.7) 09/02/17 07:30 MCHC 35.4 g/dl (32.0-35.9) 09/02/17 07:30 RDW 13.0 % (11.9-15.9) 09/02/17 07:30 Plt Count 208 K/MM3 (134-434) 09/02/17 07:30 MPV 8.5 fl (7.5-11.1) 09/02/17 07:30 Sodium 141 mmol/L (136-145) 09/02/17 07:30 Potassium 4.0 mmol/L (3.5-5.1) 09/02/17 07:30 Chloride 107 mmol/L (98-107) 09/02/17 07:30 Carbon Dioxide 31 mmol/L (21-32) 09/02/17 07:30 Anion Gap 3 (8-16) L 09/02/17 07:30 BUN 13 mg/dL (7-18) 09/02/17 07:30 Creatinine 0.6 mg/dL (0.7-1.3) L D 09/02/17 07:30 Creat Clearance w eGFR > 60 (>60) 09/02/17 07:30 Random Glucose 97 mg/dL (74-106) 09/02/17 07:30 Calcium 8.3 mg/dL (8.5-10.1) L 09/02/17 07:30 Total Bilirubin 0.3 mg/dL (0.2-1.0) D 09/02/17 07:30 AST 20 U/L (15-37) 09/02/17 07:30 ALT 36 U/L (12-78) D 09/02/17 07:30 Alkaline Phosphatase 101 U/L (45-117) D 09/02/17 07:30 Total Protein 6.3 g/dl (6.4-8.2) L 09/02/17 07:30 Albumin 3.3 g/dl (3.4-5.0) L 09/02/17 07:30 Urine Color Yellow 09/01/17 15:00 Urine Appearance Turbid 09/01/17 15:00 Urine pH 5.0 (5.0-8.0) 09/01/17 15:00 Ur Specific [place] 1.028 (1.001-1.035) 09/01/17 15:00 Urine Protein Negative (NEGATIVE) 09/01/17 15:00 Urine Glucose (UA) Negative (NEGATIVE) 09/01/17 15:00 Urine Ketones Trace (NEGATIVE) H 09/01/17 15:00 Urine Blood Negative (NEGATIVE) 09/01/17 15:00 Urine Nitrite Negative (NEGATIVE) 04/14/18 15:00 Urine Bilirubin Negative (<2.0 mg/dL) 09/01/17 15:00 Urine Urobilinogen 2.0 mg/dL (0.2-1.0) 09/01/17 15:00 Ur Leukocyte Esterase Negative (NEGATIVE) 09/01/17 15:00 RPR Titer Nonreactive (NONREACTIVE) 09/02/17 07:30 lab noted Assessment: 09/02/17 11:56 withdrawal sx Plan: continue detox
[2017-09-02] MEDS: THIAMINE HCL 100 MG TABLET (FP) PO SCH (22:17)
[2017-09-02] MEDS: traZODone HCL 50 MG TABLET (FP) PO SCH (22:17)
[2017-09-02] MEDS: QUEtiapine FUMARATE 50 MG TABLET PO SCH (22:17)
[2017-09-03] MEDS: chlordiazePOXIDE HCL 25 MG CAPSULE PO SCH ×2 (05:21→10:30)
[2017-09-03] MEDS: PRENATAL VITAMINS W/ FOLIC ACID TABLET (FP) PO SCH (10:30)
[2017-09-03] MEDS: SERTRALINE HCL 50 MG TABLET (FP) PO SCH (10:30)
[2017-09-03] MEDS: METHADONE HCL 5 MG TABLET (FOR DETOX USE ONLY) PO SCH (10:31)
--- NOTE | 2017-09-03 11:50 | PN ---
[facility] CIWA - CIWA Score Nausea/Vomitin Muscle Tremors: 3 Anxiety: 3 Agitation: 2 Paroxysmal Sweats: 3 Orientation: 0-Oriented Tacttile Disturbances: 0-None Auditory Disturbances: 0-None Visual Disturbances: 0-None Headache: 0-None Present CIWA-Ar Total Score: 14 S COWS - Scale Resting Pulse: 0= [place] 80 or Below Sweatin= Chills/Flushing Restless Observation: 1= Difficult to Sit Still Pupil Size: 0= Normal to Room Light Bone or Joint Aches: 1= Mild Discomfort Runny Nose/ Eye Tearin= Nasal Congestion GI Upset > 30mins: 2= Nausea/Diarrhea Tremor Observation of Outstretched Hands: 2= Slight Tremor Visible Yawning Observation: 1= 1-2x During Session Anxiety or Irritability: 2=Irritable/Anxious Goose Flesh Skin: 0=Smooth Skin COWS Score: 11 [facility] Progress Note (SOAP) Subjective: sleep disturbance pain in L ankle nausea Objective: 09/03/17 11:54 A & O x 3 Vital Signs Temperature 96.1 F L 09/03/17 10:17 Pulse Rate 66 09/03/17 10:17 Respiratory Rate 18 09/03/17 10:17 Blood Pressure 95/66 09/03/17 10:17 O2 Sat by Pulse Oximetry (%) Assessment: 09/03/17 11:54 withdrawal sx Plan: Continue detox
--- NOTE | 2017-09-03 12:41 | EKG ---
Test Reason : Blood Pressure : / mmHG Vent. Rate : 084 BPM Atrial Rate : 084 BPM P-R Int : 170 ms QRS Dur : 104 ms QT Int : 396 ms P-R-T Axes : 061 090 061 degrees QTc Int : 467 ms NORMAL SINUS RHYTHM RIGHTWARD AXIS BORDERLINE ECG WHEN COMPARED WITH ECG OF 24-AUG-2017 17:27, NO SIGNIFICANT CHANGE WAS FOUND Confirmed by MARK ESCOBAR MD ([id number]) on 09/03/2017 12:41:14 PM Referred By: Confirmed By:MARK ESCOBAR MD
[2017-09-03] MEDS: IBUPROFEN 400 MG TABLET (FP) PO PRN (12:46)
[2017-09-03] MEDS: chlordiazePOXIDE HCL 25 MG CAPSULE PO PRN (12:46)
[2017-09-03] MEDS: chlordiazePOXIDE 5 MG CAPSULE PO SCH ×2 (17:48→22:06)
[2017-09-03] MEDS: QUEtiapine FUMARATE 50 MG TABLET PO SCH (22:06)
[2017-09-03] MEDS: traZODone HCL 50 MG TABLET (FP) PO SCH (22:06)
[2017-09-03] MEDS: THIAMINE HCL 100 MG TABLET (FP) PO SCH (22:07)
[2017-09-04] MEDS: chlordiazePOXIDE 5 MG CAPSULE PO SCH ×2 (05:47→10:33)
[2017-09-04] MEDS: SERTRALINE HCL 50 MG TABLET (FP) PO SCH (10:33)
[2017-09-04] MEDS: PRENATAL VITAMINS W/ FOLIC ACID TABLET (FP) PO SCH (10:34)
[2017-09-04] MEDS: hydrOXYzine PAMOATE 50 MG CAPSULE (FP) PO PRN ×2 (10:34→14:01)
[2017-09-04] MEDS: METHADONE HCL 5 MG TABLET (FOR DETOX USE ONLY) PO SCH (10:35)
--- NOTE | 2017-09-04 12:15 | PN ---
[facility] Progress Note (SOAP) Subjective: sweat tremor restlessness social with peers in day room Objective: 09/04/17 12:18 Vital Signs Temperature 96.8 F L 09/04/17 10:18 Pulse Rate 68 09/04/17 10:18 Respiratory Rate 18 09/04/17 10:18 Blood Pressure 111/62 09/04/17 10:18 O2 Sat by Pulse Oximetry (%) Laboratory Last Values WBC 4.8 K/mm3 (4.0-10.0) 09/02/17 07:30 RBC 4.12 M/mm3 (4.00-5.60) 09/02/17 07:30 Hgb 12.8 GM/dL (11.7-16.9) 09/02/17 07:30 Hct 36.3 % (35.4-49) 09/02/17 07:30 MCV 87.9 fl (80-96) 09/02/17 07:30 MCH 31.1 pg (25.7-33.7) 09/02/17 07:30 MCHC 35.4 g/dl (32.0-35.9) 09/02/17 07:30 RDW 13.0 % (11.9-15.9) 09/02/17 07:30 Plt Count 208 K/MM3 (134-434) 09/02/17 07:30 MPV 8.5 fl (7.5-11.1) 09/02/17 07:30 Sodium 141 mmol/L (136-145) 09/02/17 07:30 Potassium 4.0 mmol/L (3.5-5.1) 09/02/17 07:30 Chloride 107 mmol/L (98-107) 09/02/17 07:30 Carbon Dioxide 31 mmol/L (21-32) 09/02/17 07:30 Anion Gap 3 (8-16) L 09/02/17 07:30 BUN 13 mg/dL (7-18) 09/02/17 07:30 Creatinine 0.6 mg/dL (0.7-1.3) L D 09/02/17 07:30 Creat Clearance w eGFR > 60 (>60) 09/02/17 07:30 Random Glucose 97 mg/dL (74-106) 09/02/17 07:30 Calcium 8.3 mg/dL (8.5-10.1) L 09/02/17 07:30 Total Bilirubin 0.3 mg/dL (0.2-1.0) D 09/02/17 07:30 AST 20 U/L (15-37) 09/02/17 07:30 ALT 36 U/L (12-78) D 09/02/17 07:30 Alkaline Phosphatase 101 U/L (45-117) D 09/02/17 07:30 Total Protein 6.3 g/dl (6.4-8.2) L 09/02/17 07:30 Albumin 3.3 g/dl (3.4-5.0) L 09/02/17 07:30 Urine Color Yellow 09/01/17 15:00 Urine Appearance Turbid 09/01/17 15:00 Urine pH 5.0 (5.0-8.0) 09/01/17 15:00 Ur Specific [place] 1.028 (1.001-1.035) 09/01/17 15:00 Urine Protein Negative (NEGATIVE) 09/01/17 15:00 Urine Glucose (UA) Negative (NEGATIVE) 09/01/17 15:00 Urine Ketones Trace (NEGATIVE) H 09/01/17 15:00 Urine Blood Negative (NEGATIVE) 09/01/17 15:00 Urine Nitrite Negative (NEGATIVE) 09/01/17 15:00 Urine Bilirubin Negative (<2.0 mg/dL) 09/01/17 15:00 Urine Urobilinogen 2.0 mg/dL (0.2-1.0) 09/01/17 15:00 Ur Leukocyte Esterase Negative (NEGATIVE) 09/01/17 15:00 RPR Titer Nonreactive (NONREACTIVE) 09/02/17 07:30 lab noted Assessment: 09/04/17 12:18 withdrawal sx Plan: continue detox
[2017-09-04] MEDS: IBUPROFEN 400 MG TABLET (FP) PO PRN (14:01)
[2017-09-04] MEDS: chlordiazePOXIDE HCL 10 MG CAPSULE PO SCH ×2 (18:41→22:29)
[2017-09-04] MEDS: traZODone HCL 50 MG TABLET (FP) PO SCH (22:29)
[2017-09-04] MEDS: QUEtiapine FUMARATE 50 MG TABLET PO SCH (22:29)
[2017-09-05] MEDS: THIAMINE HCL 100 MG TABLET (FP) PO SCH (00:15)
[2017-09-05] MEDS: chlordiazePOXIDE HCL 10 MG CAPSULE PO SCH ×2 (05:17→10:20)
[2017-09-05] MEDS ORDERED: METHADONE HCL 10 MG TABLET (FOR DETOX USE ONLY) PO SCH (10:00)
[2017-09-05] MEDS: PRENATAL VITAMINS W/ FOLIC ACID TABLET (FP) PO SCH (10:19)
[2017-09-05] MEDS: SERTRALINE HCL 50 MG TABLET (FP) PO SCH (10:19)
[2017-09-05] MEDS: hydrOXYzine PAMOATE 50 MG CAPSULE (FP) PO PRN (10:19)
[2017-09-05] MEDS: IBUPROFEN 400 MG TABLET (FP) PO PRN (10:21)
--- NOTE | 2017-09-05 12:10 | PN ---
[facility] Progress Note (SOAP) Subjective: feeling better less sweat no tremor denies body ache denies pain slept througout the night Objective: 09/05/17 12:09 Vital Signs Temperature 98.1 F 09/05/17 10:33 Pulse Rate 80 09/05/17 10:33 Respiratory Rate 20 09/05/17 10:33 Blood Pressure 126/69 09/05/17 10:33 O2 Sat by Pulse Oximetry (%) Laboratory Last Values WBC 4.8 K/mm3 (4.0-10.0) 09/02/17 07:30 RBC 4.12 M/mm3 (4.00-5.60) 09/02/17 07:30 Hgb 12.8 GM/dL (11.7-16.9) 09/02/17 07:30 Hct 36.3 % (35.4-49) 09/02/17 07:30 MCV 87.9 fl (80-96) 09/02/17 07:30 MCH 31.1 pg (25.7-33.7) 09/02/17 07:30 MCHC 35.4 g/dl (32.0-35.9) 09/02/17 07:30 RDW 13.0 % (11.9-15.9) 09/02/17 07:30 Plt Count 208 K/MM3 (134-434) 09/02/17 07:30 MPV 8.5 fl (7.5-11.1) 09/02/17 07:30 Sodium 141 mmol/L (136-145) 09/02/17 07:30 Potassium 4.0 mmol/L (3.5-5.1) 09/02/17 07:30 Chloride 107 mmol/L (98-107) 09/02/17 07:30 Carbon Dioxide 31 mmol/L (21-32) 09/02/17 07:30 Anion Gap 3 (8-16) L 09/02/17 07:30 BUN 13 mg/dL (7-18) 09/02/17 07:30 Creatinine 0.6 mg/dL (0.7-1.3) L D 09/02/17 07:30 Creat Clearance w eGFR > 60 (>60) 09/02/17 07:30 Random Glucose 97 mg/dL (74-106) 09/02/17 07:30 Calcium 8.3 mg/dL (8.5-10.1) L 09/02/17 07:30 Total Bilirubin 0.3 mg/dL (0.2-1.0) D 09/02/17 07:30 AST 20 U/L (15-37) 09/02/17 07:30 ALT 36 U/L (12-78) D 09/02/17 07:30 Alkaline Phosphatase 101 U/L (45-117) D 09/02/17 07:30 Total Protein 6.3 g/dl (6.4-8.2) L 09/02/17 07:30 Albumin 3.3 g/dl (3.4-5.0) L 09/02/17 07:30 Urine Color Yellow 09/01/17 15:00 Urine Appearance Turbid 09/01/17 15:00 Urine pH 5.0 (5.0-8.0) 09/01/17 15:00 Ur Specific [place] 1.028 (1.001-1.035) 09/01/17 15:00 Urine Protein Negative (NEGATIVE) 09/01/17 15:00 Urine Glucose (UA) Negative (NEGATIVE) 09/01/17 15:00 Urine Ketones Trace (NEGATIVE) H 09/01/17 15:00 Urine Blood Negative (NEGATIVE) 09/01/17 15:00 Urine Nitrite Negative (NEGATIVE) 09/01/17 15:00 Urine Bilirubin Negative (<2.0 mg/dL) 09/01/17 15:00 Urine Urobilinogen 2.0 mg/dL (0.2-1.0) 09/01/17 15:00 Ur Leukocyte Esterase Negative (NEGATIVE) 09/01/17 15:00 RPR Titer Nonreactive (NONREACTIVE) 09/02/17 07:30 lab noted Assessment: 09/05/17 12:10 mild withdrawal sx Plan: medically supervised detox
[2017-09-05 14:07] VITALS: BP 135/67; PULSE 84; TEMP 97.7
--- NOTE | 2017-09-05 15:26 | DS ---
[facility] Detox Discharge Summary Admission Date: 09/01/17 Discharge Date: 09/05/17 - History Present History: Alcohol Dependence, Opioid Dependence Additional Comments: 26 years old male admitted on 09/01/17 for alcohol and opioid detox patient reported that he is feeling better denies alcohol withdrawal denies opioid withdrawal sx patient wants to begin recovery process aftercare as per counselor arranged patient is alert oriented x 3 no acute distress, coherent social with peer in day room agrees to aftercare denies suicidal homocidal no self destructive behavior patient determine to remain sober through aftercare - Physical Exam Results Vital Signs: Vital Signs Temperature 97.7 F 09/05/17 14:06 Pulse Rate 84 09/05/17 14:06 Respiratory Rate 18 09/05/17 14:06 Blood Pressure 135/67 09/05/17 14:06 O2 Sat by Pulse Oximetry (%) Pertinent Admission Physical Exam Findings: withdrawal sx Vital Signs Temperature 97.7 F 09/05/17 14:06 Pulse Rate 84 09/05/17 14:06 Respiratory Rate 18 09/05/17 14:06 Blood Pressure 135/67 09/05/17 14:06 O2 Sat by Pulse Oximetry (%) Laboratory Last Values WBC 4.8 K/mm3 (4.0-10.0) 09/02/17 07:30 RBC 4.12 M/mm3 (4.00-5.60) 09/02/17 07:30 Hgb 12.8 GM/dL (11.7-16.9) 09/02/17 07:30 Hct 36.3 % (35.4-49) 09/02/17 07:30 MCV 87.9 fl (80-96) 09/02/17 07:30 MCH 31.1 pg (25.7-33.7) 09/02/17 07:30 MCHC 35.4 g/dl (32.0-35.9) 09/02/17 07:30 RDW 13.0 % (11.9-15.9) 09/02/17 07:30 Plt Count 208 K/MM3 (134-434) 09/02/17 07:30 MPV 8.5 fl (7.5-11.1) 09/02/17 07:30 Sodium 141 mmol/L (136-145) 09/02/17 07:30 Potassium 4.0 mmol/L (3.5-5.1) 09/02/17 07:30 Chloride 107 mmol/L (98-107) 09/02/17 07:30 Carbon Dioxide 31 mmol/L (21-32) 09/02/17 07:30 Anion Gap 3 (8-16) L 09/02/17 07:30 BUN 13 mg/dL (7-18) 09/02/17 07:30 Creatinine 0.6 mg/dL (0.7-1.3) L D 09/02/17 07:30 Creat Clearance w eGFR > 60 (>60) 09/02/17 07:30 Random Glucose 97 mg/dL (74-106) 09/02/17 07:30 Calcium 8.3 mg/dL (8.5-10.1) L 09/02/17 07:30 Total Bilirubin 0.3 mg/dL (0.2-1.0) D 09/02/17 07:30 AST 20 U/L (15-37) 09/02/17 07:30 ALT 36 U/L (12-78) D 09/02/17 07:30 Alkaline Phosphatase 101 U/L (45-117) D 09/02/17 07:30 Total Protein 6.3 g/dl (6.4-8.2) L 09/02/17 07:30 Albumin 3.3 g/dl (3.4-5.0) L 09/02/17 07:30 Urine Color Yellow 09/01/17 15:00 Urine Appearance Turbid 09/01/17 15:00 Urine pH 5.0 (5.0-8.0) 09/01/17 15:00 Ur Specific [place] 1.028 (1.001-1.035) 09/01/17 15:00 Urine Protein Negative (NEGATIVE) 09/01/17 15:00 Urine Glucose (UA) Negative (NEGATIVE) 09/01/17 15:00 Urine Ketones Trace (NEGATIVE) H 09/01/17 15:00 Urine Blood Negative (NEGATIVE) 09/01/17 15:00 Urine Nitrite Negative (NEGATIVE) 09/01/17 15:00 Urine Bilirubin Negative (<2.0 mg/dL) 09/01/17 15:00 Urine Urobilinogen 2.0 mg/dL (0.2-1.0) 09/01/17 15:00 Ur Leukocyte Esterase Negative (NEGATIVE) 09/01/17 15:00 RPR Titer Nonreactive (NONREACTIVE) 09/02/17 07:30 lab noted - Treatment Hospital Course: Detox Protocol Followed, Detoxed Safely, Responded well, Discharged Condition Good, Rehab Referral Accepted Patient has Accepted a Rehab Referral to: as per counselor arranged - Medication Discharge Medications: Ambulatory Orders Omeprazole 20 mg PO DAILY 08/24/17 Quetiapine Fumarate [Seroquel -] 50 mg PO HS #30 tablet 09/02/17 Sertraline HCl [Zoloft -] 50 mg PO DAILY #30 tablet 09/02/17 traZODone HCL [Desyrel -] 50 mg PO HS #30 tablet 09/02/17 - Diagnosis (1) Alcohol dependence with uncomplicated withdrawal Current Visit: Yes Status: Acute (2) Opioid dependence with withdrawal Current Visit: Yes Status: Acute (3) Hepatitis C Current Visit: Yes Status: Resolved Qualifiers: Viral hepatitis chronicity: chronic Hepatic coma status: without hepatic coma Qualified Code(s): B18.2 - Chronic viral hepatitis C (4) Nicotine dependence Current Visit: Yes Status: Acute Qualifiers: Nicotine product type: cigarettes Substance use status: in withdrawal Qualified Code(s): F17.213 - Nicotine dependence, cigarettes, with withdrawal (5) Bipolar II disorder Current Visit: Yes Status: Suspected - AMA Did Patient Leave Against Medical Advice: No
[2017-09-06] MEDS ORDERED: METHADONE HCL 5 MG TABLET (FOR DETOX USE ONLY) PO SCH (06:00)
== END 2017-09-05 16:05 | disposition home or self-care (01) | DRG 773 ==
LOC: YASAS 08:40 → Y6N 11:57
PROVIDERS: ADMIT Internal Medicine; ATTEND Internal Medicine
PROC: HZ2ZZZZ Detoxification Services for Substance Abuse Treatment (ICD-10-PCS; principal; 2017-09-01)
DX: F11.23 Opioid dependence with withdrawal (principal); F10.230 Alcohol dependence with withdrawal, uncomplicated; F14.20 Cocaine dependence, uncomplicated; F12.20 Cannabis dependence, uncomplicated; F17.210 Nicotine dependence, cigarettes, uncomplicated; F31.81 Bipolar II disorder; F41.1 Generalized anxiety disorder; F19.282 Other psychoactive substance dependence with psychoactive substance-induced sleep disorder; B18.2 Chronic viral hepatitis C; M25.472 Effusion, left ankle; Z59.0 Homelessness
CPT/HCPCS: 36415; 80053; 81003; 85027; 86593; 93005; 93010

== ENCOUNTER 2017-09-25 02:43 | Emergency (ER) | payer OTHER ==
[2017-09-25 02:53] VITALS: BP 144/91; PULSE 98; TEMP 97.2; BMI 22.4
--- NOTE | 2017-09-25 03:41 | PDOC ---
History of Present Illness - General Chief Complaint: Injury Stated Complaint: FALL Time Seen by Provider: 09/25/17 02:57 History Source: Patient - History of Present Illness Initial Comments: 09/25/17 03:46 26 year old male history of substance abuse with cocaine [facility] EMS patient left [facility] and was unable to sign back in for detox, patient was found by EMS on the street awake. patient reports that he tripped on the side walk and fell forward with LOC. patient reports that he has PTSD denies SI or HI. Patient alert ox 3. flighted thoughts denies delusions or hallucinations Past History - Past Medical History Allergies/Adverse Reactions: Allergies Allergy/AdvReac Type Severity Reaction Status Date / Time No Known Allergies Allergy Verified 09/26/17 11:16 Home Medications: Ambulatory Orders Omeprazole 20 mg PO DAILY 08/24/17 Quetiapine Fumarate [Seroquel -] 50 mg PO HS #30 tablet 09/02/17 Sertraline HCl [Zoloft -] 50 mg PO DAILY #30 tablet 09/02/17 traZODone HCL [Desyrel -] 50 mg PO HS #30 tablet 09/02/17 Anemia: No Asthma: No Cancer: No Cardiac Disorders: No CVA: No COPD: No CHF: No Dementia: No Diabetes: No GI Disorders: Yes (acid reflux-) Disorders: No HTN: No Hypercholesterolemia: No Kidney Stones: No Liver Disease: No Seizures: No Thyroid Disease: No - Surgical History Abdominal Surgery: No Appendectomy: No Cardiac Surgery: No Cholecystectomy: No Lung Surgery: No Neurologic Surgery: No Orthopedic Surgery: No - Reproductive History Testicular Surgery: No - Immunization History Immunization Up to Date: Yes - Suicide/Smoking/Psychosocial Hx Smoking History: Unknown if ever smoked Have you smoked in the past 12 months: No Number of Cigarettes Smoked Daily: 20 Cigars Per Day: 0 Information on smoking cessation initiated: No 'Breaking Loose' booklet given: 09/01/17 (give on floor) Hx Alcohol Use: No Drug/Substance Use Hx: Yes (benzo) Substance Use Type: Alcohol, Cocaine, Heroin, Marijuana Hx Substance Use Treatment: Yes (detox, rehab) Review of Systems - Review of Systems Able to Perform ROS?: Yes Is the patient limited Sudanese proficient: No Constitutional: No: Symptoms Reported, See HPI, Chills, Diaphoresis, Fever, Loss of Appetite, Malaise, Night Sweats, Weakness, Weight Stable, Unintentional Wgt. 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 P: patient alert walking around. talking with staff, flight of thoughts. no acute threat to self at this time 09/25/17 04:37 A: nasal bone fracture; head injury? , drug abuse P: CT head negative. nasal bone fracture noted. *DC/Admit/Observation/Transfer Diagnosis at time of Disposition: Substance abuse or dependence Head injury due to trauma Qualifiers: Encounter type: initial encounter Qualified Code(s): S09.90XA - Unspecified injury of head, initial encounter Nasal bone fracture Qualifiers: Encounter type: sequela Fracture type: closed Qualified Code(s): S02.2XXS - Fracture of nasal bones, sequela - Discharge Dispostion Disposition: HOME - Referrals - Patient Instructions Printed Discharge Instructions: DI for Closed Head Injury Additional Instructions: rest and relax as much as possible. return to the ER if symptoms worsen. - Post Discharge Activity
== END 2017-09-25 05:04 | disposition home or self-care (01) ==
LOC: JER 02:43
DX: S02.2XXA Fracture of nasal bones, initial encounter for closed fracture (principal); F14.10 Cocaine abuse, uncomplicated; W18.39XA Other fall on same level, initial encounter; Y93.89 Activity, other specified; Y92.480 Sidewalk as the place of occurrence of the external cause; Y99.8 Other external cause status; K21.9 Gastro-esophageal reflux disease without esophagitis
CPT/HCPCS: 70450-TC; 99281-25

== ENCOUNTER 2017-09-26 08:52 | Inpatient (IN) | payer OTHER ==
[2017-09-26 11:02] VITALS: BMI 21.5
--- NOTE | 2017-09-26 12:08 | HP ---
COWS - Scale Resting Pulse: 0= NH 80 or Below Sweatin=Flushed/Facial Moisture Restless Observation: 3= Extraneous Movement Pupil Size: 2= Moderately Dilated Bone or Joint Aches: 2= Severe Diffuse Aches Runny Nose/ Eye Tearin= Runny Nose/Eyes GI Upset > 30mins: 3= Vomiting/Diarrhea Tremor Observation: 2= Slight Tremor Visible Yawning Observation: 1= 1-2x During Session Anxiety or Irritability: 2=Irritable/Anxious Goose Flesh Skin: 0=Smooth Skin COWS Score: 19 CIWA Score - CIWA Score Nausea/Vomitin Muscle Tremors: 3 Anxiety: 3 Agitation: 3 Paroxysmal Sweats: 2 Orientation: 0-Oriented Tacttile Disturbances: 1-Very Mild Itch/Numbness Auditory Disturbances: 1-Very Mild Visual Disturbances: 0-None Headache: 2-Mild CIWA-Ar Total Score: 18 Admission ROS [facility] - HPI Chief Complaint: i need help to stop using heroin and alcohol,fell,seen in [facility] er 09/25/[address],no bleed,had fx of nasal bone, Allergies/Adverse Reactions: Allergies Allergy/AdvReac Type Severity Reaction Status Date / Time No Known Allergies Allergy Verified 09/26/17 11:16 History of Present Illness: this 26 years old male with heroin and alcohol dependence,fell with head injury on 09/25/[address] [facility] er,clear to come back for detox, seeking detox,withdrawal symptom, multiple detox in the past hepatitis c nicotine dependence longest period of sobriety 14 months weight loss bipolar disorder - Ebola screening Have you traveled outside of the country in the last 21 days: No Have you had contact with anyone from an Ebola affected area: No Have you been sick,other than usual withdrawal symptoms: No - Review of Systems Constitutional: See HPI, Chills, Loss of Appetite, Night Sweats, Changes in sleep, Weakness, Unintentional Wgt. Loss EENT: reports: Tearing, Nose Congestion Respiratory: reports: No Symptoms reported Cardiac: reports: No Symptoms Reported GI: reports: Diarrhea, Nausea, Vomiting, Abdominal cramping : reports: No Symptoms Reported Musculoskeletal: reports: Back Pain, Joint Pain, Muscle Pain, Joint Stiffness Integumentary: reports: Dryness Neuro: reports: Headache, Tremors Endocrine: reports: No Symptoms Reported Hematology: reports: No Symptoms Reported Psychiatric: reports: No Sypmtoms Reported, Judgement Intact, Mood/Affect Appropiate, Orientated x3 (bipolar disorder) Patient History - Patient Medical History Hx Anemia: No Hx Asthma: No Hx Chronic Obstructive Pulmonary Disease (COPD): No Hx Cancer: No Hx Cardiac Disorders: No Hx Congestive Heart Failure: No Hx Hypertension: No Hx Hypercholesterolemia: No Hx Pacemaker: No HX Cerebrovascular Accident: No Hx Seizures: No Hx Dementia: No Hx Diabetes: No Hx Gastrointestinal Disorders: Yes (acid reflux) Hx Liver Disease: No Hx Genitourinary Disorders: No Hx Sexually Transmitted Disorders: No Hx Renal Disease (ESRD): No Hx Thyroid Disease: No Hx Human Immunodeficiency Virus (HIV): No (Negative hx) Hx Hepatitis C: Yes (never treated) Hx Depression: No Hx Suicide Attempt: No Hx Bipolar Disorder: Yes (hx of meds) Hx Schizophrenia: No Other Medical History: no suicidal,no homicidal - Patient Surgical History Past Surgical History: No Hx Neurologic Surgery: No Hx Cataract Extraction: No Hx Cardiac Surgery: No Hx Lung Surgery: No Hx Breast Surgery: No Hx Breast Biopsy: No Hx Abdominal Surgery: No Hx Appendectomy: No Hx Cholecystectomy: No Hx Genitourinary Surgery: No Hx Section: No Hx Orthopedic Surgery: No Anesthesia Reaction: No - PPD History Previous Implant?: Yes Documented Results: Negative w/proof Implanted On Prior [facility] Admission?: Yes Date: 07/25/17 Results: 0 mm PPD to be Administered?: No - Smoking Cessation Smoking history: Current every day smoker Have you smoked in the past 12 months: Yes Aproximately how many cigarettes per day: 10 Cigars Per Day: 0 Hx Chewing Tobacco Use: No Initiated information on smoking cessation: Yes 'Breaking Loose' booklet given: 09/26/17 - Substance & Tx. History Hx Alcohol Use: Yes Hx Substance Use: Yes Substance Use Type: Alcohol, Heroin Hx Substance Use Treatment: Yes ([facility] last 09/01/17 to 09/05/17) - Substances Abused Heroin Route: Injection Frequency: Daily Amount used: 6 bags Age of first use: 19 Date of Last Use: 09/25/17 Alcohol-charity Route: Oral Frequency: Daily Amount used: 1/2-1 pt. Age of first use: 14 Date of Last Use: 09/25/17 Ecstasy Route: Injection Frequency: No use in 30 days Amount used: 1 gm. Age of first use: 26 Date of Last Use: 09/24/17 Family Disease History - Family Disease History Family Disease History: Other: Father (etoh, living), Mother (etoh, living), Brother (2 living healthy) Admission Physical Exam S - Vital Signs Vital Signs: Vital Signs - 24 hr 09/26/17 10:51 Temperature 97 F L Pulse Rate 53 L Respiratory 20 Rate Blood Pressure 118/65 - Physical General Appearance: Yes: Moderate Distress, Tremorous, Irritable, Sweating, Anxious HEENTM: Yes: Hearing grossly Normal, ATUL, Pharynx Normal, Nasal Congestion (fx of nasal bone) Respiratory: Yes: Lungs Clear, Normal Breath Sounds, No Respiratory Distress Neck: Yes: Within Normal Limits, Supple, Trachea in good position Breast: Yes: Within Normal Limits Cardiology: Yes: Within Normal Limits, Regular Rhythm, Regular Rate, S1, S2 Abdominal: Yes: Within Normal Limits, Normal Bowel Sounds, Non Tender, Soft Genitourinary: Yes: Within Normal Limits Back: Yes: Muscle Spasm Musculoskeletal: Yes: full range of Motion, Back pain, Muscle Pain Extremities: Yes: Within Normal Limits, Normal Range of Motion, Tremors 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, Alert, Motor Strength 5/5 Integumentary: Yes: Dry, Track [place] Lymphatic: Yes: Within Normal Limits - Diagnostic (1) Opioid dependence with withdrawal Current Visit: No Status: Acute (2) Weight loss Current Visit: Yes Status: Acute (3) Alcohol dependence with uncomplicated withdrawal Current Visit: No Status: Acute (4) Nicotine dependence Current Visit: No Status: Acute Qualifiers: Nicotine product type: cigarettes Substance use status: in withdrawal Qualified Code(s): F17.213 - Nicotine dependence, cigarettes, with withdrawal (5) Bipolar disorder Current Visit: No Status: Chronic Comment: As per records.Patient is asymptomatic.Non compliant with medications.Lost to follow-up for several months. (6) Insomnia Current Visit: No Status: Chronic Qualifiers: Insomnia type: primary Qualified Code(s): F51.01 - Primary insomnia (7) Hepatitis C Current Visit: No Status: Resolved Qualifiers: Viral hepatitis chronicity: chronic Hepatic coma status: without hepatic coma Qualified Code(s): B18.2 - Chronic viral hepatitis C Comment: never treated (8) Ecstasy abuse Current Visit: Yes Status: Acute (9) IV drug user Current Visit: Yes Status: Acute Cleared for Admission [facility] - Detox or Rehab [facility] Level of Care: Medically Managed Detox Regimen/Protocol: Methadone/Librium [facility] Breath Alcohol Content Breath Alcohol Content: 0 Urine Drug Screen - Results Drug Screen Negative: No Urine Drug Screen Results: THC-Marijuana, KM-Cocaine, OPI-Opiates, BZO- Benzodiazepines
[2017-09-26] MEDS ORDERED: MENTHOL/PHENOL 1 EACH UD MM PRN (12:27)
[2017-09-26] MEDS ORDERED: ACETAMINOPHEN 325 MG TABLET (FP) PO PRN (12:27)
[2017-09-26] MEDS ORDERED: IBUPROFEN 400 MG TABLET (FP) PO PRN (12:27)
[2017-09-26] MEDS ORDERED: P-EPHED 60MG/TRIPROLIDI 2.5MG TABLET PO PRN (12:27)
[2017-09-26] MEDS ORDERED: MAG HYDROX/AL HYDROX/SIMETH 30 ML UNIT-DOSE CUP PO PRN (12:27)
[2017-09-26] MEDS ORDERED: guaiFENesin/D-METHORPHAN HB 10 ML UNIT-DOSE CUPS PO PRN (12:27)
[2017-09-26] MEDS ORDERED: hydrOXYzine PAMOATE 25 MG CAPSULE (FP) PO PRN (12:27)
[2017-09-26] MEDS ORDERED: MAGNESIUM CITRATE 300 ML BOTTLE PO PRN (12:27)
[2017-09-26] MEDS ORDERED: LOPERAMIDE HCL 2 MG CAPSULE PO PRN (12:27)
[2017-09-26] MEDS ORDERED: chlordiazePOXIDE HCL 25 MG CAPSULE PO PRN (12:27)
[2017-09-26] MEDS ORDERED: MAGNESIUM HYDROX 2400MG/30ML ORAL SUSPENSION 30 ML CUP PO PRN (12:27)
[2017-09-26] MEDS ORDERED: CYCLOBENZAPRINE HCL 10 MG TABLET (FP) PO PRN (12:31)
[2017-09-26] MEDS ORDERED: chlordiazePOXIDE HCL 25 MG CAPSULE PO ONE (13:45)
[2017-09-26] MEDS ORDERED: METHADONE HCL 10 MG TABLET (FOR DETOX USE ONLY) PO ONE ×2 (13:45→23:00)
--- NOTE | 2017-09-26 14:00 | EKG ---
Test Reason : Blood Pressure : / mmHG Vent. Rate : 057 BPM Atrial Rate : 057 BPM P-R Int : 144 ms QRS Dur : 108 ms QT Int : 442 ms P-R-T Axes : 030 086 063 degrees QTc Int : 430 ms SINUS BRADYCARDIA OTHERWISE NORMAL ECG WHEN COMPARED WITH ECG OF 01-SEP-2017 13:15, NO SIGNIFICANT CHANGE WAS FOUND Confirmed by OBINNA LANDERS MD ([id number]) on 09/26/2017 2:00:35 PM Referred By: Confirmed By:OBINNA LANDERS MD
[2017-09-26] MEDS: chlordiazePOXIDE HCL 25 MG CAPSULE PO SCH ×2 (17:40→22:13)
[2017-09-26 19:13] LABS: URINE APPEARANCE TURBID; URINE BILIRUBIN NEGATIVE (<2.0 mg/dL); URINE COLOR YELLOW; URINE GLUCOSE (UA) NEGATIVE (NEGATIVE); URINE KETONE TRACE (NEGATIVE); URINE LEUK ESTERASE NEGATIVE (NEGATIVE); URINE NITRITE NEGATIVE (NEGATIVE)
[2017-09-26 19:16] LABS: URINE PROTEIN 1+ (NEGATIVE)
[2017-09-26 19:23] LABS: URINE MUCUS RARE
[2017-09-26] MEDS ORDERED: MELATONIN 5 MG TABLETS PO PRN (22:00)
[2017-09-26] MEDS ORDERED: THIAMINE HCL 100 MG TABLET (FP) PO SCH (22:00)
[2017-09-26] MEDS: cloNIDine HCL 0.1 MG TABLET PO SCH (22:13)
[2017-09-27] MEDS: chlordiazePOXIDE HCL 25 MG CAPSULE PO SCH ×2 (06:46→10:18)
--- NOTE | 2017-09-27 09:11 | CONSULT ---
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 This is one of multiple admissions for patient. Patient admitted to for alcohol and opiate dependence. Substance Abuse History: Following information confirmed with Mr. Gallardo: Smoking Cessation. Smoking history: Current every day smoker. Have you smoked in the past 12 months: Yes. Aproximately how many cigarettes per day: 10. Cigars Per Day: 0. Hx Chewing Tobacco Use: No. Initiated information on smoking cessation: Yes. 'Breaking Loose' booklet given: 09/26/17. - Substance & Tx. History. Hx Alcohol Use: Yes. Hx Substance Use: Yes. Substance Use Type : Alcohol, Heroin. Hx Substance Use Treatment: Yes ([facility] last 09/01/17 to 09/05). - Substances Abused. Heroin. Route: Injection. Frequency: Daily. Amount used: 6 bags. Age of first use: 19. Date of Last Use: 09/25/17. Alcohol-charity. Route: Oral. Frequency: Daily. Amount used: 1/2-1 pt. Age of first use: 14. Date of Last Use: 09/25/17. Ecstasy. Route: Injection. Frequency: No use in 30 days. Amount used: 1 gm. Age of first use: 26. Date of Last Use: 09/24/17 Medical History: Acid reflux, Hep C Psychiatric History: Patient reports one psychiatric hospitalization at [facility] in 2008 after using PCP. Pt. with a h/o nonadherence to medication and outpatient treatment. Pt. denies OPD. Most recent OPD was in 2012 at the outpatient program in [facility]. Pt. denies h/o suicide attempt. Patient requesting to resume the psychotrophic medications he accepted while in detox 09/05. Physical/Sexual Abuse/Trauma History: Denies. Mental Status Exam - Mental Status Exam Alert and Oriented to: Time, Place, Person Cognitive Function: Good Patient Appearance: Well Groomed Mood: Hopeful Affect: Mood Congruent Patient Behavior: Appropriate, Cooperative Speech Pattern: Clear, Appropriate Voice Loudness: Normal Thought Process: Intact, Goal Oriented Thought Disorder: Not Present Hallucinations: Denies Suicidal Ideation: Denies Homicidal Ideation: Denies Insight/Judgement: Poor Sleep: Poorly Appetite: Fair Muscle strength/Tone: Normal Gait/Station: Normal Psychiatric Findings - Problem List ([place] 1, 2,3) (1) Alcohol dependence with uncomplicated withdrawal Current Visit: Yes Status: Acute (2) Cocaine dependence Current Visit: Yes Status: Acute Qualifiers: Substance use status: uncomplicated Qualified Code(s): F14.20 - Cocaine dependence, uncomplicated (3) Opioid dependence with withdrawal Current Visit: Yes Status: Acute (4) Nicotine dependence Current Visit: Yes Status: Chronic Qualifiers: Nicotine product type: cigarettes Substance use status: in withdrawal Qualified Code(s): F17.213 - Nicotine dependence, cigarettes, with withdrawal (5) Insomnia Current Visit: Yes Status: Acute Qualifiers: Insomnia type: primary Qualified Code(s): F51.01 - Primary insomnia (6) Substance induced mood disorder Current Visit: Yes Status: Acute (7) Bipolar disorder Current Visit: No Status: Chronic Comment: As per history.Patient is totally non-adherent to follow-up. - Initial Treatment Plan Initial Treatment Plan: Psychoeducation provided. Detoxification in progress. Zoloft 50mg + Seroquel 50mg + trazodone 50mg ordered. Benefits and side effects discussed. Pt. made aware of the risk of priapism.
[2017-09-27 09:57] LABS: HEMATOCRIT 39.6 % (35.4-49); HEMOGLOBIN 13.7 GM/dL (11.7-16.9); MCH 30.5 pg (25.7-33.7); MCHC 34.6 g/dl (32.0-35.9); MEAN CELL VOLUME 88.2 fl (80-96); MEAN PLT VOLUME 9.4 fl (7.5-11.1); PLATELET COUNT 234 K/MM3 (134-434); RBC 4.49 M/mm3 (4.00-5.60); RDW 12.8 % (11.9-15.9); WHITE BLOOD COUNT 5.3 K/mm3 (4.0-10.0)
[2017-09-27] MEDS ORDERED: PRENATAL VITAMINS W/ FOLIC ACID TABLET (FP) PO SCH (10:00)
[2017-09-27] MEDS ORDERED: SERTRALINE HCL 50 MG TABLET (FP) PO SCH (10:00)
[2017-09-27] MEDS ORDERED: PANTOPRAZOLE 40 MG TABLET (FP) PO SCH (10:00)
[2017-09-27] MEDS ORDERED: METHADONE HCL 10 MG TABLET (FOR DETOX USE ONLY) PO SCH (10:00)
[2017-09-27 10:10] LABS: CHLORIDE 104 mmol/L (98-107); POTASSIUM 4.3 mmol/L (3.5-5.1); SODIUM 138 mmol/L (136-145)
[2017-09-27] MEDS: cloNIDine HCL 0.1 MG TABLET PO SCH (10:18)
[2017-09-27 10:27] LABS: ALK PHOS 99 U/L (45-117); ANION GAP 5 (8-16); BILIRUBIN,TOTAL 1.1 mg/dL (0.2-1.0); BLOOD UREA NITROGEN 12 mg/dL (7-18); CALCIUM 9.2 mg/dL (8.5-10.1); CO2 29 mmol/L (21-32); CREATININE 0.8 mg/dL (0.7-1.3); GLUCOSE,RANDOM 127 mg/dL (74-106); SGOT/AST 14 U/L (15-37); SGPT/ALT 17 U/L (12-78)
--- NOTE | 2017-09-27 12:43 | PN ---
S CIWA - CIWA Score Nausea/Vomitin-No Nausea/No Vomiting Muscle Tremors: 4-Moderate,w/Arms Extend Anxiety: 4-Mod. Anxious/Guarded Agitation: 1-Slight > Activity Paroxysmal Sweats: 3 Orientation: 0-Oriented Tacttile Disturbances: 3-Moderate Itch/Numb/Burn Auditory Disturbances: 0-None Visual Disturbances: 2-Mild Sensitivity Headache: 0-None Present CIWA-Ar Total Score: 17 BHS COWS - Scale Resting Pulse: 0= ID 80 or Below Sweatin=Flushed/Facial Moisture Restless Observation: 0= Sits Still Pupil Size: 0= Normal to Room Light Bone or Joint Aches: 0= None Runny Nose/ Eye Tearin= Runny Nose/Eyes GI Upset > 30mins: 0= None Tremor Observation of Outstretched Hands: 2= Slight Tremor Visible Yawning Observation: 2= >3x During Session Anxiety or Irritability: 2=Irritable/Anxious Goose Flesh Skin: 3=Piloerection COWS Score: 13 BHS Progress Note (SOAP) Subjective: Tremors, Sweating, Fatigue, Anxious. Objective: PATIENT A & O X 3. NO ACUTE DISTRESS. 09/27/17 12:42 Vital Signs Temperature 95.8 F L 09/27/17 09:10 Pulse Rate 58 L 09/27/17 09:10 Respiratory Rate 20 09/27/17 09:10 Blood Pressure 108/64 09/27/17 09:10 O2 Sat by Pulse Oximetry (%) Laboratory Tests 09/26/17 09/27/17 09/27/17 14:00 06:00 06:00 WBC 5.3 RBC 4.49 Hgb 13.7 Hct 39.6 MCV 88.2 MCH 30.5 MCHC 34.6 RDW 12.8 Plt Count 234 MPV 9.4 D Sodium 138 Potassium 4.3 Chloride 104 Carbon Dioxide 29 Anion Gap 5 L BUN 12 Creatinine 0.8 D Creat Clearance w eGFR > 60 Random Glucose 127 H D Calcium 9.2 Total Bilirubin 1.1 H D AST 14 L D ALT 17 D Alkaline Phosphatase 99 Total Protein 7.0 Albumin 4.0 D Urine Color Yellow Urine Appearance Turbid Urine pH 6.0 Ur Specific [place] 1.029 Urine Protein 1+ H Urine Glucose (UA) Negative Urine Ketones Trace H Urine Blood Negative Urine Nitrite Negative Urine Bilirubin Negative Urine Urobilinogen 2.0 Ur Leukocyte Esterase Negative Urine WBC (Auto) None Urine RBC (Auto) 8 Urine Mucus Rare LABS NOTED. Assessment: 09/27/17 12:42 WITHDRAWAL SYMPTOMS. Plan: CONTINUE DETOX. INCREASE DAILY PO FLUID INTAKE. ENCOURAGE AMBULATION.
[2017-09-27 13:25] VITALS: BP 118/62; PULSE 67; TEMP 96.3
--- NOTE | 2017-09-27 16:49 | DS ---
[facility] Detox Discharge Summary Admission Date: 09/26/17 Discharge Date: 09/27/17 - History Present History: Alcohol Dependence, Cocaine Dependence, Opioid Dependence Additional Comments: PATIENT DOES NOT WISH TO STAY TO COMPLETE DETOX REGIMEN. RISKS OF LEAVING DETOX UNIT AGAINST MEDICAL ADVICE AND PRIOR TO COMPLETION OF DETOX REGIMEN EXPLAINED TO PATIENT. PATIENT ADVISED TO GO IMMEDIATELY TO NEAREST ER SHOULD ANY INTOLERABLE DETOX SYMPTOMS DEVELOP AT ANY TIME. PATIENT LEFT DETOX UNIT IN STABLE MEDICAL CONDITION. Pertinent Past History: Bipolar Disorder, Hep C, Ecstasy Abuse, Insomnia, Nicotine Dependence, Acid Reflux, Weight Loss. - Physical Exam Results Vital Signs: Vital Signs Temperature 96.3 F L 09/27/17 13:22 Pulse Rate 67 09/27/17 13:22 Respiratory Rate 18 09/27/17 13:22 Blood Pressure 118/62 09/27/17 13:22 O2 Sat by Pulse Oximetry (%) Pertinent Admission Physical Exam Findings: WITHDRAWAL SYMPTOMS. Laboratory Tests 09/26/17 09/27/17 09/27/17 14:00 06:00 06:00 WBC 5.3 RBC 4.49 Hgb 13.7 Hct 39.6 MCV 88.2 MCH 30.5 MCHC 34.6 RDW 12.8 Plt Count 234 MPV 9.4 D Sodium 138 Potassium 4.3 Chloride 104 Carbon Dioxide 29 Anion Gap 5 L BUN 12 Creatinine 0.8 D Creat Clearance w eGFR > 60 Random Glucose 127 H D Calcium 9.2 Total Bilirubin 1.1 H D AST 14 L D ALT 17 D Alkaline Phosphatase 99 Total Protein 7.0 Albumin 4.0 D Urine Color Yellow Urine Appearance Turbid Urine pH 6.0 Ur Specific [place] 1.029 Urine Protein 1+ H Urine Glucose (UA) Negative Urine Ketones Trace H Urine Blood Negative Urine Nitrite Negative Urine Bilirubin Negative Urine Urobilinogen 2.0 Ur Leukocyte Esterase Negative Urine WBC (Auto) None Urine RBC (Auto) 8 Urine Mucus Rare RPR Titer 09/27/17 06:00 WBC RBC Hgb Hct MCV MCH MCHC RDW Plt Count MPV Sodium Potassium Chloride Carbon Dioxide Anion Gap BUN Creatinine Creat Clearance w eGFR Random Glucose Calcium Total Bilirubin AST ALT Alkaline Phosphatase Total Protein Albumin Urine Color Urine Appearance Urine pH Ur Specific [place] Urine Protein Urine Glucose (UA) Urine Ketones Urine Blood Urine Nitrite Urine Bilirubin Urine Urobilinogen Ur Leukocyte Esterase Urine WBC (Auto) Urine RBC (Auto) Urine Mucus RPR Titer Nonreactive LABS NOTED. - Treatment Hospital Course: Detoxed Safely - Medication Discharge Medications: Ambulatory Orders Omeprazole 20 mg PO DAILY 08/24/17 Quetiapine Fumarate [Seroquel -] 50 mg PO HS #30 tablet 09/02/17 Sertraline HCl [Zoloft -] 50 mg PO DAILY #30 tablet 09/02/17 traZODone HCL [Desyrel -] 50 mg PO HS #30 tablet 09/02/17 - Diagnosis (1) Alcohol dependence with uncomplicated withdrawal Current Visit: Yes Status: Acute (2) Ecstasy abuse Current Visit: Yes Status: Acute (3) Opioid dependence with withdrawal Current Visit: Yes Status: Acute (4) Weight loss Current Visit: Yes Status: Acute (5) Nicotine dependence Current Visit: Yes Status: Chronic Qualifiers: Nicotine product type: cigarettes Substance use status: in withdrawal Qualified Code(s): F17.213 - Nicotine dependence, cigarettes, with withdrawal (6) Hepatitis C Current Visit: Yes Status: Resolved Qualifiers: Viral hepatitis chronicity: chronic Hepatic coma status: without hepatic coma Qualified Code(s): B18.2 - Chronic viral hepatitis C (7) Insomnia Current Visit: Yes Status: Acute Qualifiers: Insomnia type: primary Qualified Code(s): F51.01 - Primary insomnia (8) Bipolar disorder Current Visit: Yes Status: Chronic Qualifiers: Active/Remission status: remission status unspecified Qualified Code(s): F31.9 - Bipolar disorder, unspecified (9) Cocaine dependence Current Visit: Yes Status: Acute Qualifiers: Substance use status: uncomplicated Qualified Code(s): F14.20 - Cocaine dependence, uncomplicated (10) IV drug user Current Visit: Yes Status: Acute - AMA Did Patient Leave Against Medical Advice: Yes (PATIENT DID NOT WISH TO STAY TO COMPLETE DETOX REGIMEN.)
[2017-09-27] MEDS ORDERED: chlordiazePOXIDE HCL 25 MG CAPSULE PO SCH (17:00)
[2017-09-27] MEDS ORDERED: traZODone HCL 50 MG TABLET (FP) PO SCH (22:00)
[2017-09-27] MEDS ORDERED: QUEtiapine FUMARATE 50 MG TABLET PO SCH (22:00)
[2017-09-28] MEDS ORDERED: METHADONE HCL 5 MG TABLET (FOR DETOX USE ONLY) PO SCH (10:00)
[2017-09-28] MEDS ORDERED: chlordiazePOXIDE 5 MG CAPSULE PO SCH ×2 (17:00)
[2017-09-29] MEDS ORDERED: chlordiazePOXIDE HCL 10 MG CAPSULE PO SCH (17:00)
[2017-09-30] MEDS ORDERED: METHADONE HCL 10 MG TABLET (FOR DETOX USE ONLY) PO SCH (10:00)
[2017-10-01] MEDS ORDERED: METHADONE HCL 5 MG TABLET (FOR DETOX USE ONLY) PO SCH (06:00)
== END 2017-09-27 16:55 | disposition left against medical advice (07) | DRG 770 ==
LOC: YASAS 08:52 → Y3N 12:18
PROVIDERS: ADMIT Internal Medicine; ATTEND Internal Medicine
PROC: HZ2ZZZZ Detoxification Services for Substance Abuse Treatment (ICD-10-PCS; principal; 2017-09-26)
DX: F11.23 Opioid dependence with withdrawal (principal); F10.230 Alcohol dependence with withdrawal, uncomplicated; F14.20 Cocaine dependence, uncomplicated; F15.10 Other stimulant abuse, uncomplicated; F17.210 Nicotine dependence, cigarettes, uncomplicated; F19.24 Other psychoactive substance dependence with psychoactive substance-induced mood disorder; F31.9 Bipolar disorder, unspecified; B18.2 Chronic viral hepatitis C; K21.9 Gastro-esophageal reflux disease without esophagitis; R63.4 Abnormal weight loss; Z68.21 Body mass index [BMI] 21.0-21.9, adult; Z59.0 Homelessness
CPT/HCPCS: 36415; 80053; 81003; 81015; 85027; 86593; 93005; 93010; J0735

== ENCOUNTER 2017-11-21 21:52 | Inpatient (IN) | payer OTHER ==
[2017-11-21] MEDS ORDERED: MELATONIN 5 MG TABLETS PO PRN (22:00)
[2017-11-21 22:26] VITALS: BMI 22.4
--- NOTE | 2017-11-21 22:39 | HP ---
COWS - Scale Resting Pulse: 2= [place] 101-120 Sweatin= Chills/Flushing Restless Observation: 3= Extraneous Movement Pupil Size: 2= Moderately Dilated Bone or Joint Aches: 2= Severe Diffuse Aches Runny Nose/ Eye Tearin= Runny Nose/Eyes GI Upset > 30mins: 2= Nausea/Diarrhea Tremor Observation: 2= Slight Tremor Visible Yawning Observation: 1= 1-2x During Session Anxiety or Irritability: 2=Irritable/Anxious Goose Flesh Skin: 0=Smooth Skin COWS Score: 19 CIWA Score - CIWA Score Nausea/Vomitin Muscle Tremors: 3 Anxiety: 3 Agitation: 3 Paroxysmal Sweats: 2 Orientation: 0-Oriented Tacttile Disturbances: 2-Mild Itch/Numbness/Burn Auditory Disturbances: 1-Very Mild Visual Disturbances: 0-None Headache: 2-Mild CIWA-Ar Total Score: 19 Admission ROS BHS - HPI Chief Complaint: i need help to stop using heroin,alcohol and cocaine Allergies/Adverse Reactions: Allergies Allergy/AdvReac Type Severity Reaction Status Date / Time No Known Allergies Allergy Verified 09/26/17 11:16 History of Present Illness: this 26 years old male with heroin,alcohol,cocaine seeking detox,withdrawal symptom,last detox [facility] 09/26/17 to 10/07/17 not completed syncope hepatitis c since 2009 weight loss bipolar disorder Exam Limitations: No Limitations - Ebola screening Have you traveled outside of the country in the last 21 days: No (N) Have you had contact with anyone from an Ebola affected area: No Have you been sick,other than usual withdrawal symptoms: No Do you have a fever: No - Review of Systems Constitutional: Chills, Diaphoresis, Loss of Appetite, Night Sweats, Weight Stable, Unintentional Wgt. Loss EENT: reports: Tearing, Nose Congestion Respiratory: reports: No Symptoms reported Cardiac: reports: Palpitations : reports: No Symptoms Reported Musculoskeletal: reports: Back Pain, Joint Pain, Muscle Pain, Joint Stiffness Integumentary: reports: Dryness Neuro: reports: Headache, Tremors Endocrine: reports: No Symptoms Reported Hematology: reports: No Symptoms Reported Psychiatric: reports: No Sypmtoms Reported (bipolar disorder), Judgement Intact , Mood/Affect Appropiate Patient History - Patient Medical History Hx Anemia: No Hx Asthma: No Hx Chronic Obstructive Pulmonary Disease (COPD): No Hx Cancer: No Hx Cardiac Disorders: No Hx Congestive Heart Failure: No Hx Hypertension: No Hx Hypercholesterolemia: No Hx Pacemaker: No HX Cerebrovascular Accident: No Hx Seizures: No Hx Dementia: No Hx Diabetes: No Hx Gastrointestinal Disorders: Yes (acid reflux) Hx Liver Disease: No Hx Genitourinary Disorders: No Hx Sexually Transmitted Disorders: No Hx Renal Disease (ESRD): No Hx Thyroid Disease: No Hx Human Immunodeficiency Virus (HIV): No (Negative hx) Hx Hepatitis C: Yes (never treated) Hx Depression: Yes Hx Suicide Attempt: No Hx Bipolar Disorder: Yes (hx of meds) Hx Schizophrenia: No Other Medical History: no suicidal,no homicidal, - Patient Surgical History Past Surgical History: No Hx Neurologic Surgery: No Hx Cataract Extraction: No Hx Cardiac Surgery: No Hx Lung Surgery: No Hx Breast Surgery: No Hx Breast Biopsy: No Hx Abdominal Surgery: No Hx Appendectomy: No Hx Cholecystectomy: No Hx Genitourinary Surgery: No Hx Section: No Hx Orthopedic Surgery: No Anesthesia Reaction: No - PPD History Previous Implant?: Yes Documented Results: Negative w/proof Date: 07/25/17 Results: 0 mm PPD to be Administered?: No - Smoking Cessation Smoking history: Current every day smoker Have you smoked in the past 12 months: Yes Aproximately how many cigarettes per day: 10 Cigars Per Day: 0 Hx Chewing Tobacco Use: No Initiated information on smoking cessation: Yes 'Breaking Loose' booklet given: 11/21/17 - Substance & Tx. History Hx Alcohol Use: Yes Hx Substance Use: Yes Substance Use Type: Alcohol, Cocaine, Heroin Hx Substance Use Treatment: Yes ([facility] 09/26/17 to 09/27/17) - Substances Abused Alcohol Route: Oral Frequency: Daily Amount used: 2/5 ERASMO Age of first use: 12 Date of Last Use: 11/21/17 Cocaine Route: Smoking Frequency: 1-2 times per week Amount used: 7 GRAMS Age of first use: 16 Date of Last Use: 11/21/17 Heroin Route: Injection Frequency: Daily Amount used: 7-10BAGS Age of first use: 18 Date of Last Use: 11/21/17 Family Disease History - Family Disease History Family Disease History: Other: Father (etoh, living), Mother (etoh, living), Brother (2 living healthy) Admission Physical Exam [facility] - Vital Signs Vital Signs: Vital Signs - 24 hr 11/21/17 22:24 Temperature 97.5 F L Pulse Rate 106 H Respiratory 20 Rate Blood Pressure 147/84 - Physical General Appearance: Yes: Moderate Distress, Intoxicated, Tremorous, Irritable, Anxious HEENTM: Yes: Normal ENT Inspection, Pharynx Normal Respiratory: Yes: Lungs Clear, Normal Breath Sounds, No Respiratory Distress Neck: Yes: Within Normal Limits, Supple, Trachea in good position Breast: Yes: Within Normal Limits Cardiology: Yes: Tachycardia Abdominal: Yes: Within Normal Limits, Normal Bowel Sounds, Non Tender, Flat Genitourinary: Yes: Within Normal Limits Musculoskeletal: Yes: full range of Motion, Back pain, Muscle Pain Extremities: Yes: Tremors 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: Yes: head of operation and logistics II-XII NML intact, Fully Oriented, Alert, Motor Strength 5/5 Integumentary: Yes: Dry Lymphatic: Yes: Within Normal Limits - Diagnostic (1) Opioid dependence with withdrawal Current Visit: No Status: Acute (2) Alcohol dependence with uncomplicated withdrawal Current Visit: No Status: Acute (3) Cocaine dependence Current Visit: No Status: Acute Qualifiers: Substance use status: uncomplicated Qualified Code(s): F14.20 - Cocaine dependence, uncomplicated (4) IV drug user Current Visit: No Status: Acute (5) Hepatitis C Current Visit: No Status: Resolved Qualifiers: Viral hepatitis chronicity: chronic Hepatic coma status: without hepatic coma Qualified Code(s): B18.2 - Chronic viral hepatitis C Comment: never treated (6) Bipolar disorder Current Visit: Yes Status: Acute (7) Dehydration Current Visit: Yes Status: Acute (8) Weight loss Current Visit: No Status: Acute Cleared for Admission [facility] - Detox or Rehab [facility] Level of Care: Medically Managed Detox Regimen/Protocol: Methadone/Librium [facility] Breath Alcohol Content Breath Alcohol Content: 0 Urine Drug Screen - Results Drug Screen Negative: No Urine Drug Screen Results: THC-Marijuana, KM-Cocaine, OPI-Opiates, AMP- Amphetamines
[2017-11-21] MEDS ORDERED: MAGNESIUM CITRATE 300 ML BOTTLE PO PRN (22:45)
[2017-11-21] MEDS ORDERED: ACETAMINOPHEN 325 MG TABLET (FP) PO PRN (22:45)
[2017-11-21] MEDS ORDERED: LOPERAMIDE HCL 2 MG CAPSULE PO PRN (22:45)
[2017-11-21] MEDS ORDERED: MENTHOL/PHENOL 1 EACH UD MM PRN (22:45)
[2017-11-21] MEDS ORDERED: NICOTINE POLACRILEX 2 MG GUM BC PRN (22:45)
[2017-11-21] MEDS ORDERED: chlordiazePOXIDE HCL 25 MG CAPSULE PO PRN (22:45)
[2017-11-21] MEDS ORDERED: chlordiazePOXIDE HCL 25 MG CAPSULE PO ONE (22:45)
[2017-11-21] MEDS ORDERED: P-EPHED 60MG/TRIPROLIDI 2.5MG TABLET PO PRN (22:45)
[2017-11-21] MEDS ORDERED: IBUPROFEN 400 MG TABLET (FP) PO PRN (22:45)
[2017-11-21] MEDS ORDERED: hydrOXYzine PAMOATE 25 MG CAPSULE (FP) PO PRN (22:45)
[2017-11-21] MEDS ORDERED: guaiFENesin/D-METHORPHAN HB 10 ML UNIT-DOSE CUPS PO PRN (22:45)
[2017-11-21] MEDS ORDERED: MAGNESIUM HYDROX 2400MG/30ML ORAL SUSPENSION 30 ML CUP PO PRN (22:45)
[2017-11-21] MEDS ORDERED: METHADONE HCL 10 MG TABLET (FOR DETOX USE ONLY) PO ONE ×2 (22:45→23:00)
[2017-11-21] MEDS ORDERED: MAG HYDROX/AL HYDROX/SIMETH 30 ML UNIT-DOSE CUP PO PRN (22:45)
[2017-11-21] MEDS ORDERED: CYCLOBENZAPRINE HCL 10 MG TABLET (FP) PO PRN (22:49)
[2017-11-21] MEDS: chlordiazePOXIDE HCL 25 MG CAPSULE PO SCH (23:23)
[2017-11-22] MEDS: chlordiazePOXIDE HCL 25 MG CAPSULE PO SCH ×4 (06:01→22:35)
[2017-11-22 07:53] LABS: URINE APPEARANCE TURBID; URINE BILIRUBIN NEGATIVE (<2.0 mg/dL); URINE COLOR YELLOW; URINE GLUCOSE (UA) 1+ (NEGATIVE); URINE KETONE NEGATIVE (NEGATIVE); URINE LEUK ESTERASE NEGATIVE (NEGATIVE); URINE NITRITE NEGATIVE (NEGATIVE); URINE PROTEIN NEGATIVE (NEGATIVE); URINE UROBILINOGEN NEGATIVE mg/dL (0.2-1.0)
[2017-11-22] MEDS ORDERED: METHADONE HCL 10 MG TABLET (FOR DETOX USE ONLY) PO SCH (10:00)
[2017-11-22 10:36] LABS: HEMATOCRIT 35.1 % (35.4-49); HEMOGLOBIN 12.3 GM/dL (11.7-16.9); MCH 30.6 pg (25.7-33.7); MCHC 35.1 g/dl (32.0-35.9); MEAN CELL VOLUME 87.1 fl (80-96); MEAN PLT VOLUME 8.7 fl (7.5-11.1); PLATELET COUNT 196 K/MM3 (134-434); RBC 4.03 M/mm3 (4.00-5.60); RDW 13.1 % (11.9-15.9); WHITE BLOOD COUNT 5.2 K/mm3 (4.0-10.0)
[2017-11-22 10:46] LABS: ALBUMIN 3.2 g/dl (3.4-5.0); ANION GAP 8 (8-16); BLOOD UREA NITROGEN 14 mg/dL (7-18); CALCIUM 8.2 mg/dL (8.5-10.1); CHLORIDE 105 mmol/L (98-107); CO2 30 mmol/L (21-32); GLUCOSE,RANDOM 107 mg/dL (74-106); POTASSIUM 3.9 mmol/L (3.5-5.1); SODIUM 143 mmol/L (136-145)
[2017-11-22 10:50] LABS: ALK PHOS 157 U/L (45-117); BILIRUBIN,TOTAL 0.2 mg/dL (0.2-1.0); CREATININE 0.8 mg/dL (0.7-1.3); SGOT/AST 41 U/L (15-37); SGPT/ALT 117 U/L (12-78); TOT PROT 6.3 g/dl (6.4-8.2)
[2017-11-22] MEDS: cloNIDine HCL 0.1 MG TABLET PO SCH ×2 (10:56→22:35)
[2017-11-22] MEDS: PRENATAL VITAMINS W/ FOLIC ACID TABLET (FP) PO SCH (10:56)
[2017-11-22] MEDS: NICOTINE 21 MG/24 HOURS TOPICAL PATCH TD SCH (10:57)
--- NOTE | 2017-11-22 11:03 | CONSULT ---
[facility] Psychiatric Consult - Data Date of interview: 11/22/17 Admission source: [facility] Identifying data: Patient is a 26 year old single male, without kids, unemployed , and currently homeless. This is one of multiple admissions to detox. Pt. admitted to for opiate dependence. Substance Abuse History: Smoking Cessation. Smoking history: Current every day smoker. Have you smoked in the past 12 months: Yes. Aproximately how many cigarettes per day: 10. Cigars Per Day: 0. Hx Chewing Tobacco Use: No. Initiated information on smoking cessation: Yes. 'Breaking Loose' booklet given : 11/21/17. - Substance & Tx. History. Hx Alcohol Use: Yes. Hx Substance Use : Yes. Substance Use Type: Alcohol, Cocaine, Heroin. Hx Substance Use Treatment: Yes ([facility] 09/26/17 to 09/27/17). - Substances Abused. Alcohol. Route: Oral. Frequency: Daily. Amount used: 2/5 ERASMO. Age of first use: 12. Date of Last Use: 11/21/17. Cocaine. Route: Smoking. Frequency: 1-2 times per week. Amount used: 7 GRAMS. Age of first use: 16. Date of Last Use : 11/21/17. Heroin. Route: Injection. Frequency: Daily. Amount used: 7- 10BAGS. Age of first use: 18. Date of Last Use: 11/21/17 Medical History: GERD, Hep C Psychiatric History: Patient's first psychiatric contact was at 13 after exhibiting signs of bipolar disorder. Pt. unable to recall which medication he was prescribed. Pt. reports two psychiatric hospitalizations in 2008 ([facility]) for an attempted suicide attempt. Pt. denies current OPD. States he was first started on zoloft, seroquel, trazodone and depakote while in [facility] in 2012. Patient has hep C and therefore can't accept depakote. Most recent OPD was in 2012 at the outpatient program in [facility] [place] Pt. was prescribed zoloft 50mg + seroquel 50mg + trazodone 50mg during his previous admission in detox. Pt. reports two suicide attempt in 2008 by overdose and running into traffic. Physical/Sexual Abuse/Trauma History: Denies. Mental Status Exam - Mental Status Exam Alert and Oriented to: Time, Place, Person Cognitive Function: Good Patient Appearance: Well Groomed Mood: Euthymic Affect: Appropriate Patient Behavior: Appropriate, Cooperative Speech Pattern: Clear, Appropriate Voice Loudness: Normal Thought Process: Intact, Goal Oriented Thought Disorder: Not Present Hallucinations: Denies Suicidal Ideation: Denies Homicidal Ideation: Denies Insight/Judgement: Poor Sleep: Poorly Appetite: Fair Muscle strength/Tone: Normal Gait/Station: Normal Psychiatric Findings - Problem List ([place] 1, 2,3) (1) Bipolar disorder Current Visit: No Status: Suspected Comment: Pt. is asymptomatic. Pt. is nonadherent to medication but is requesting to resume medication. (2) Alcohol dependence with uncomplicated withdrawal Current Visit: Yes Status: Acute (3) Cocaine dependence Current Visit: Yes Status: Acute Qualifiers: Substance use status: uncomplicated Qualified Code(s): F14.20 - Cocaine dependence, uncomplicated (4) Opioid dependence with withdrawal Current Visit: Yes Status: Acute (5) Substance induced mood disorder Current Visit: Yes Status: Acute (6) Hepatitis C Current Visit: Yes Status: Resolved Qualifiers: Viral hepatitis chronicity: chronic Hepatic coma status: without hepatic coma Qualified Code(s): B18.2 - Chronic viral hepatitis C Comment: never treated - Initial Treatment Plan Initial Treatment Plan: Psychoeducation provided. Detoxification in progress. Zoloft 50mg daily + Seroquel 50mg qhs + trazodone 50mg qhs. Benefits and side effects discussed. Patient made aware of the risk of priapism. Verbal consent given.
--- NOTE | 2017-11-22 11:31 | EKG ---
Test Reason : Blood Pressure : / mmHG Vent. Rate : 083 BPM Atrial Rate : 083 BPM P-R Int : 160 ms QRS Dur : 108 ms QT Int : 372 ms P-R-T Axes : 058 086 067 degrees QTc Int : 437 ms NORMAL SINUS RHYTHM NORMAL ECG WHEN COMPARED WITH ECG OF 26-SEP-2017 13:16, NO SIGNIFICANT CHANGE WAS FOUND Confirmed by ADALI IZAGUIRRE MD ([id number]) on 11/22/2017 11:30:56 AM Referred By: Confirmed By:ADALI IZAGUIRRE MD
--- NOTE | 2017-11-22 15:59 | PN ---
S CIWA - CIWA Score Nausea/Vomitin-No Nausea/No Vomiting Muscle Tremors: 4-Moderate,w/Arms Extend Anxiety: 4-Mod. Anxious/Guarded Agitation: 3 Paroxysmal Sweats: 2 Orientation: 0-Oriented Tacttile Disturbances: 0-None Auditory Disturbances: 0-None Visual Disturbances: 0-None Headache: 0-None Present CIWA-Ar Total Score: 13 S COWS - Scale Resting Pulse: 1= [place] 81-100 Sweatin= Chills/Flushing Restless Observation: 3= Extraneous Movement Pupil Size: 2= Moderately Dilated Bone or Joint Aches: 1= Mild Discomfort Runny Nose/ Eye Tearin= None GI Upset > 30mins: 0= None Tremor Observation of Outstretched Hands: 2= Slight Tremor Visible Yawning Observation: 1= 1-2x During Session Anxiety or Irritability: 1=Feels Anxious/Irritable Goose Flesh Skin: 0=Smooth Skin COWS Score: 12 S Progress Note (SOAP) Subjective: ANXIETY,SWEATS,SLIGHT TREMORS,FATIGUE. Objective: 11/22/17 15:58 Vital Signs 11/22/17 11/22/17 09:20 13:40 Temperature 97.4 F L 96.9 F L Pulse Rate 79 78 Respiratory 18 18 Rate Blood Pressure 124/68 116/65 Laboratory Tests 11/21/17 11/22/17 11/22/17 11:12 07:40 07:40 WBC 5.2 RBC 4.03 Hgb 12.3 Hct 35.1 L MCV 87.1 MCH 30.6 MCHC 35.1 RDW 13.1 Plt Count 196 MPV 8.7 Sodium 143 Potassium 3.9 Chloride 105 Carbon Dioxide 30 Anion Gap 8 BUN 14 Creatinine 0.8 Creat Clearance w eGFR > 60 Random Glucose 107 H Calcium 8.2 L Total Bilirubin 0.2 AST 41 H D ALT 117 H D Alkaline Phosphatase 157 H Total Protein 6.3 L Albumin 3.2 L Urine Color Yellow Urine Appearance Turbid Urine pH 5.0 Ur Specific [place] 1.028 Urine Protein Negative Urine Glucose (UA) 1+ H Urine Ketones Negative Urine Blood Negative Urine Nitrite Negative Urine Bilirubin Negative Urine Urobilinogen Negative Ur Leukocyte Esterase Negative RPR Titer 11/22/17 07:40 WBC RBC Hgb Hct MCV MCH MCHC RDW Plt Count MPV Sodium Potassium Chloride Carbon Dioxide Anion Gap BUN Creatinine Creat Clearance w eGFR Random Glucose Calcium Total Bilirubin AST ALT Alkaline Phosphatase Total Protein Albumin Urine Color Urine Appearance Urine pH Ur Specific [place] Urine Protein Urine Glucose (UA) Urine Ketones Urine Blood Urine Nitrite Urine Bilirubin Urine Urobilinogen Ur Leukocyte Esterase RPR Titer Nonreactive Assessment: 11/22/17 15:59 WITHDRAWAL SX Plan: CONTINUE DETOX
[2017-11-22] MEDS ORDERED: traZODone HCL 50 MG TABLET (FP) PO SCH (22:00)
[2017-11-22] MEDS ORDERED: QUEtiapine FUMARATE 50 MG TABLET PO SCH (22:00)
[2017-11-22] MEDS ORDERED: THIAMINE HCL 100 MG TABLET (FP) PO SCH (22:00)
[2017-11-23] MEDS: chlordiazePOXIDE HCL 25 MG CAPSULE PO SCH ×2 (05:50→10:28)
[2017-11-23] MEDS ORDERED: METHADONE HCL 5 MG TABLET (FOR DETOX USE ONLY) PO SCH (10:00)
[2017-11-23] MEDS ORDERED: SERTRALINE HCL 50 MG TABLET (FP) PO SCH (10:00)
[2017-11-23] MEDS: NICOTINE 21 MG/24 HOURS TOPICAL PATCH TD SCH (10:28)
[2017-11-23] MEDS: cloNIDine HCL 0.1 MG TABLET PO SCH (10:28)
[2017-11-23] MEDS: PRENATAL VITAMINS W/ FOLIC ACID TABLET (FP) PO SCH (10:28)
--- NOTE | 2017-11-23 12:43 | PN ---
[facility] CIWA - CIWA Score Nausea/Vomitin-No Nausea/No Vomiting Muscle Tremors: 4-Moderate,w/Arms Extend Anxiety: 4-Mod. Anxious/Guarded Agitation: 4-Moderately Restless Paroxysmal Sweats: 1-Minimal Palms Moist Orientation: 0-Oriented Tacttile Disturbances: 0-None Auditory Disturbances: 0-None Visual Disturbances: 0-None Headache: 0-None Present CIWA-Ar Total Score: 13 S COWS - Scale Resting Pulse: 1= [place] 81-100 Sweatin= Chills/Flushing Restless Observation: 3= Extraneous Movement Pupil Size: 2= Moderately Dilated Bone or Joint Aches: 1= Mild Discomfort Runny Nose/ Eye Tearin= None GI Upset > 30mins: 0= None Tremor Observation of Outstretched Hands: 2= Slight Tremor Visible Yawning Observation: 0= None Anxiety or Irritability: 2=Irritable/Anxious Goose Flesh Skin: 0=Smooth Skin COWS Score: 12 S Progress Note (SOAP) Subjective: ANXIETY,SWEATS,RESTLESSNESS,FATIGUE. Objective: 11/23/17 12:42 Vital Signs 11/23/17 11/23/17 06:44 09:16 Temperature 96.6 F L 97.1 F L Pulse Rate 81 67 Respiratory 18 18 Rate Blood Pressure 107/58 113/58 Laboratory Tests 11/21/17 11/22/17 11/22/17 11:12 07:40 07:40 WBC 5.2 RBC 4.03 Hgb 12.3 Hct 35.1 L MCV 87.1 MCH 30.6 MCHC 35.1 RDW 13.1 Plt Count 196 MPV 8.7 Sodium 143 Potassium 3.9 Chloride 105 Carbon Dioxide 30 Anion Gap 8 BUN 14 Creatinine 0.8 Creat Clearance w eGFR > 60 Random Glucose 107 H Calcium 8.2 L Total Bilirubin 0.2 AST 41 H D ALT 117 H D Alkaline Phosphatase 157 H Total Protein 6.3 L Albumin 3.2 L Urine Color Yellow Urine Appearance Turbid Urine pH 5.0 Ur Specific [place] 1.028 Urine Protein Negative Urine Glucose (UA) 1+ H Urine Ketones Negative Urine Blood Negative Urine Nitrite Negative Urine Bilirubin Negative Urine Urobilinogen Negative Ur Leukocyte Esterase Negative RPR Titer 11/22/17 07:40 WBC RBC Hgb Hct MCV MCH MCHC RDW Plt Count MPV Sodium Potassium Chloride Carbon Dioxide Anion Gap BUN Creatinine Creat Clearance w eGFR Random Glucose Calcium Total Bilirubin AST ALT Alkaline Phosphatase Total Protein Albumin Urine Color Urine Appearance Urine pH Ur Specific [place] Urine Protein Urine Glucose (UA) Urine Ketones Urine Blood Urine Nitrite Urine Bilirubin Urine Urobilinogen Ur Leukocyte Esterase RPR Titer Nonreactive Assessment: 11/23/17 12:42 WITHDRAWAL SX Plan: CONTINUE DETOX INCREASE PO FLUIDS.
[2017-11-23 12:52] VITALS: BP 118/70; PULSE 85; TEMP 96.2
--- NOTE | 2017-11-23 14:37 | PN ---
[facility] Progress Note Note: NURSE MS [facility] CALLED TO INFORM PROVIDER PT WANTS TO LEAVE AND HIS RIDE IS ALREADY ON ITS WAY. PT DECIDED TO TERMINATE DETOX TREATMENT ON HIS OWN. PLAN: PT SIGNED OUT AMA.
--- NOTE | 2017-11-23 14:40 | DS ---
[facility] Detox Discharge Summary Admission Date: 11/21/17 Discharge Date: 11/23/17 - History Present History: Alcohol Dependence, Cocaine Dependence, Opioid Dependence Additional Comments: PT DECLINED TO CONTINUE WITH DETOX. ALL EFFORTS TO ENCOURAGE TREATMENT WAS UNSUCCESSFUL. Pertinent Past History: PLEASE SEE DX BELOW - Physical Exam Results Vital Signs: Vital Signs Temperature 96.2 F L 11/23/17 12:52 Pulse Rate 85 11/23/17 12:52 Respiratory Rate 18 11/23/17 12:52 Blood Pressure 118/70 11/23/17 12:52 O2 Sat by Pulse Oximetry (%) Pertinent Admission Physical Exam Findings: WITHDRAWAL SX Laboratory Tests 11/21/17 11/22/17 11/22/17 11:12 07:40 07:40 WBC 5.2 RBC 4.03 Hgb 12.3 Hct 35.1 L MCV 87.1 MCH 30.6 MCHC 35.1 RDW 13.1 Plt Count 196 MPV 8.7 Sodium 143 Potassium 3.9 Chloride 105 Carbon Dioxide 30 Anion Gap 8 BUN 14 Creatinine 0.8 Creat Clearance w eGFR > 60 Random Glucose 107 H Calcium 8.2 L Total Bilirubin 0.2 AST 41 H D ALT 117 H D Alkaline Phosphatase 157 H Total Protein 6.3 L Albumin 3.2 L Urine Color Yellow Urine Appearance Turbid Urine pH 5.0 Ur Specific [place] 1.028 Urine Protein Negative Urine Glucose (UA) 1+ H Urine Ketones Negative Urine Blood Negative Urine Nitrite Negative Urine Bilirubin Negative Urine Urobilinogen Negative Ur Leukocyte Esterase Negative RPR Titer 11/22/17 07:40 WBC RBC Hgb Hct MCV MCH MCHC RDW Plt Count MPV Sodium Potassium Chloride Carbon Dioxide Anion Gap BUN Creatinine Creat Clearance w eGFR Random Glucose Calcium Total Bilirubin AST ALT Alkaline Phosphatase Total Protein Albumin Urine Color Urine Appearance Urine pH Ur Specific [place] Urine Protein Urine Glucose (UA) Urine Ketones Urine Blood Urine Nitrite Urine Bilirubin Urine Urobilinogen Ur Leukocyte Esterase RPR Titer Nonreactive - Treatment Hospital Course: Discharged Condition Good - Medication Discharge Medications: Ambulatory Orders Omeprazole 20 mg PO DAILY 08/24/17 Quetiapine Fumarate [Seroquel -] 50 mg PO HS #30 tablet 09/02/17 Sertraline HCl [Zoloft -] 50 mg PO DAILY #30 tablet 09/02/17 traZODone HCL [Desyrel -] 50 mg PO HS #30 tablet 09/02/17 - Diagnosis (1) Alcohol dependence with uncomplicated withdrawal Current Visit: Yes Status: Acute (2) Opioid dependence with withdrawal Current Visit: Yes Status: Acute (3) Cocaine dependence Current Visit: Yes Status: Acute Qualifiers: Substance use status: uncomplicated Qualified Code(s): F14.20 - Cocaine dependence, uncomplicated (4) Dehydration Current Visit: Yes Status: Acute (5) IV drug user Current Visit: Yes Status: Acute (6) Nicotine dependence Current Visit: Yes Status: Acute Qualifiers: Nicotine product type: cigarettes Substance use status: in withdrawal Qualified Code(s): F17.213 - Nicotine dependence, cigarettes, with withdrawal (7) Marijuana dependence Current Visit: Yes Status: Acute (8) Hepatitis C Current Visit: Yes Status: Resolved Qualifiers: Viral hepatitis chronicity: chronic Hepatic coma status: without hepatic coma Qualified Code(s): B18.2 - Chronic viral hepatitis C - AMA Did Patient Leave Against Medical Advice: Yes (AMA)
[2017-11-23] MEDS ORDERED: chlordiazePOXIDE 5 MG CAPSULE PO SCH (23:00)
[2017-11-24] MEDS ORDERED: chlordiazePOXIDE HCL 10 MG CAPSULE PO SCH (23:00)
[2017-11-25] MEDS ORDERED: METHADONE HCL 10 MG TABLET (FOR DETOX USE ONLY) PO SCH (10:00)
[2017-11-26] MEDS ORDERED: METHADONE HCL 5 MG TABLET (FOR DETOX USE ONLY) PO SCH (06:00)
== END 2017-11-23 15:23 | disposition left against medical advice (07) | DRG 770 ==
LOC: YASAS 21:52 → Y3N 22:34
PROVIDERS: ADMIT Surgery; ATTEND Surgery
PROC: HZ2ZZZZ Detoxification Services for Substance Abuse Treatment (ICD-10-PCS; principal; 2017-11-21)
DX: F11.23 Opioid dependence with withdrawal (principal); F10.230 Alcohol dependence with withdrawal, uncomplicated; F14.20 Cocaine dependence, uncomplicated; F12.20 Cannabis dependence, uncomplicated; F17.210 Nicotine dependence, cigarettes, uncomplicated; F19.24 Other psychoactive substance dependence with psychoactive substance-induced mood disorder; F31.9 Bipolar disorder, unspecified; B18.2 Chronic viral hepatitis C; E86.0 Dehydration; Z59.0 Homelessness
CPT/HCPCS: 36415; 80053; 81003; 85027; 86593; 93005; 93010; J0735

== ENCOUNTER 2018-08-11 17:06 | Inpatient (IN) | payer OTHER ==
[2018-08-11 17:52] VITALS: BMI 22.1
--- NOTE | 2018-08-11 19:24 | HP ---
COWS - Scale Resting Pulse: 2= [place] 101-120 Sweatin=Flushed/Facial Moisture Restless Observation: 1= Difficult to Sit Still Pupil Size: 2= Moderately Dilated (Pupils = 5 mm) Bone or Joint Aches: 2= Severe Diffuse Aches Runny Nose/ Eye Tearin= Runny Nose/Eyes GI Upset > 30mins: 2= Nausea/Diarrhea Tremor Observation: 2= Slight Tremor Visible Yawning Observation: 0= None Anxiety or Irritability: 0= None Goose Flesh Skin: 0=Smooth Skin COWS Score: 15 CIWA Score Nausea/Vomitin Muscle Tremors: 3 Anxiety: 1-Mildly Anxious Agitation: 1-Slight > Activity Paroxysmal Sweats: 4-Forehead w/Sweat Beads Orientation: 0-Oriented Tacttile Disturbances: 0-None Auditory Disturbances: 0-None Visual Disturbances: 2-Mild Sensitivity (Increased sensistivity to light) Headache: 3-Moderate CIWA-Ar Total Score: 17 - Admission Criteria OAS Guidelines: Admission for Medically Managed Detox: Requires at least one of the followin. CIWA greater than 12 2. Seizures within the past 24 hours 3. Delirium tremens within the past 24 hours 4. Hallucinations within the past 24 hours 5. Acute intervention needed for co occurring medical disorder 6. Acute intervention needed for co occurring psychiatric disorder 7. Severe withdrawal that cannot be handled at a lower level of care (continued vomiting, continued diarrhea, abnormal vital signs) requiring intravenous medication and/or fluids 8. Patient presents the following: CIWA greater than 12 Admission Criteria Met: Admission criteria met Admission ROS [facility] Chief Complaint: Here for alcohol and opiate withdrawal. Allergies/Adverse Reactions: Allergies Allergy/AdvReac Type Severity Reaction Status Date / Time No Known Allergies Allergy Verified 08/11/18 18:06 History of Present Illness: Here for opiate, alcohol withdrawal w/ concurrent use of marijuana and cocaine. Has prescribed Suboxone, which started in April, and states last took 4 days ago and wants to get off. Patient requesting a methadone detox. Alcohol use began at age 13. Opioid use began at age 18. Patient has a Narcan Kit at home. Cocaine use began at age 18. Marijuana use began at age 14. Nicotine use began at age 13. Declines nicotine patch. Will accept gum. Prescribed clonazepam x 2 months. States takes as prescribed. Denies blackouts or seizures. Last overdose years ago. Longest length of sobriety 13 months. PMHx: GERD EKG on 11/18/17 @ [facility] - Normal Sinus Rhythm MHHx: Depression, insomnia. Denies thoughts of harming self or others. [facility] sees a provider through Dr. Portillo's practice. Provider present when patient called @ [phone] and left message indicating he was at [facility] being detoxed off opiates w/ methadone and also being detoxed from alcohol. Patient Name: Miguel Angel Gallardo Date: 1990 Address: [address] [place] [address] Sex: Male Rx Written Rx Dispensed Drug Quantity Days Supply Prescriber Name 07/29/2018 07/29/2018 suboxone 8 mg-2 mg sl film 42 21 Jake Portillo MD 07/22/2018 07/23/2018 clonazepam 0.5 mg tablet 60 30 AlbaroAngélica valdovinos 07/08/2018 07/08/2018 suboxone 8 mg-2 mg sl film 42 21 Jake Portillo MD 06/24/2018 06/24/2018 suboxone 8 mg-2 mg sl film 30 15 Jake Portillo MD 06/19/2018 06/19/2018 clonazepam 0.5 mg tablet 75 18 Angélica Irvin Patient Name: Miguel Angel Gallardo Date: 1990 Address: [address] [place] [address] Sex: Male Rx Written Rx Dispensed Drug Quantity Days Supply Prescriber Name 06/10/2018 06/10/2018 suboxone 8 mg-2 mg sl film 29 14 Jake Portillo MD 05/31/2018 06/02/2018 clonazepam 0.5 mg tablet 60 30 Angélica Irvin L 05/27/2018 05/27/2018 suboxone 8 mg-2 mg sl film 22 15 Jake Portillo MD 05/22/2018 05/26/2018 clonazepam 0.5 mg tablet 14 7 Angélica Irvin 05/02/2018 05/07/2018 clonazepam 0.5 mg tablet 42 21 Angélica Irvin 04/29/2018 04/29/2018 suboxone 8 mg-2 mg sl film 30 30 Jake Portillo MD 04/08/2018 04/08/2018 clonazepam 0.5 mg tablet 30 30 Jake Portillo MD 03/27/2018 03/27/2018 tramadol hcl 50 mg tablet 12 3 TitusDuncan WilfredoNeal (MD [place]) Exam Limitations: No Limitations - Ebola screening Have you traveled outside of the country in the last 21 days: No (N) Have you had contact with anyone from an Ebola affected area: No Have you been sick,other than usual withdrawal symptoms: No Do you have a fever: No - Review of Systems Constitutional: Diaphoresis, Changes in sleep (Difficulty falling asleep. States takes remeron. States Trazodone stopped working.) EENT: reports: Blurred Vision, Eye Pain (Increased eye sensitivity. Lights are causing eye discomfort.), Nose Congestion Respiratory: reports: No Symptoms reported Cardiac: reports: No Symptoms Reported GI: reports: Diarrhea, Nausea, Vomiting, Indigestion (Acid reflux - states omeprazole) : reports: No Symptoms Reported Musculoskeletal: reports: Joint Pain (Diffuse joint pain r/t withdawal) Integumentary: reports: No Symptoms Reported Neuro: reports: Headache (Moderate r/t withdrawal ans associated w/ light sensitivity), Tremors Endocrine: reports: Increased Thirst Hematology: reports: No Symptoms Reported Psychiatric: reports: Judgement Intact, Orientated x3, Agitated, Anxious, Depressed (Denies thoughts of harming self or others) Patient History - Patient Medical History Hx Anemia: No Hx Asthma: No Hx Chronic Obstructive Pulmonary Disease (COPD): No Hx Cancer: No Hx Cardiac Disorders: No Hx Congestive Heart Failure: No Hx Hypertension: No Hx Hypercholesterolemia: No Hx Pacemaker: No HX Cerebrovascular Accident: No Hx Seizures: No Hx Dementia: No Hx Diabetes: No Hx Gastrointestinal Disorders: No Hx Liver Disease: No Hx Genitourinary Disorders: No Hx Sexually Transmitted Disorders: No Hx Renal Disease (ESRD): No Hx Thyroid Disease: No Hx Human Immunodeficiency Virus (HIV): No (Negative hx) Hx Hepatitis C: Yes (never treated) Hx Depression: Yes Hx Suicide Attempt: No Hx Bipolar Disorder: Yes (hx of meds) Hx Schizophrenia: No - Patient Surgical History Past Surgical History: No Hx Neurologic Surgery: No Hx Cataract Extraction: No Hx Cardiac Surgery: No Hx Lung Surgery: No Hx Breast Surgery: No Hx Breast Biopsy: No Hx Abdominal Surgery: No Hx Appendectomy: No Hx Cholecystectomy: No Hx Genitourinary Surgery: No Hx Section: No Hx Orthopedic Surgery: No Anesthesia Reaction: No - PPD History Previous Implant?: Yes Documented Results: Negative w/o proof Implanted On Prior [facility] Admission?: Yes Date: 07/25/17 Results: 0 mm PPD to be Administered?: Yes - Smoking Cessation Smoking history: Current every day smoker Have you smoked in the past 12 months: Yes Aproximately how many cigarettes per day: 10 Cigars Per Day: 0 Hx Chewing Tobacco Use: No Initiated information on smoking cessation: Yes 'Breaking Loose' booklet given: 08/11/18 - Substance & Tx. History Hx Alcohol Use: Yes Hx Substance Use: Yes Substance Use Type: Alcohol, Cocaine, Heroin, Marijuana, Opiates, Prescribed ( clonazepam ) Hx Substance Use Treatment: Yes (detox, rehab Poor completion hx, Suboxone) - Substances Abused Alcohol Route: Oral Frequency: Daily Amount used: 4 LOCOS 24OZ Age of first use: 13 Date of Last Use: 08/11/18 Heroin Route: Injection Frequency: Daily Amount used: 6-8 BAGS Age of first use: 18 Date of Last Use: 08/10/18 Marijuana/Hashish Route: Smoking Frequency: 3-6 times per week Amount used: 1 GRAM Age of first use: 14 Date of Last Use: 08/17/18 Cocaine Route: Smoking Frequency: Daily Amount used: 2 1/2 GRAM Age of first use: 18 Date of Last Use: 08/10/18 Family Disease History - Family Disease History Family Disease History: Other: Father (etoh, living), Mother (etoh, living), Brother (2 living healthy) Admission Physical Exam S - Vital Signs Vital Signs: Vital Signs - 24 hr 08/11/18 17:49 Temperature 98.8 F Pulse Rate 103 H Respiratory 18 Rate Blood Pressure 134/67 - Physical General Appearance: Yes: Nourished, Appropriately Dressed, Moderate Distress, Tremorous, Sweating, Anxious HEENTM: Yes: EOMI, Hearing grossly Normal, Normocephalic, Normal Voice, ATUL ( Pupils = 5 mm), Pharynx Normal (T), Rhinorrhea, Other (Thickened saliva.) Respiratory: Yes: Lungs Clear, Normal Breath Sounds, No Respiratory Distress Neck: Yes: No masses,lesions,Nodules, Supple Breast: Yes: Breast Exam Deferred Cardiology: Yes: Regular Rhythm, S1, S2, Tachycardia Abdominal: Yes: Flat, Soft, Increased Bowel Sounds, Tenderness (Mid-epigastric tenderness. No guarding. No rebound) Genitourinary: Yes: Within Normal Limits Back: Yes: Normal Inspection Musculoskeletal: Yes: full range of Motion, Gait Steady Extremities: Yes: Normal Capillary Refill, Normal Range of Motion, Tremors 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: Yes: bank president II-XII NML intact, Fully Oriented, Motor Strength 5/5, Normal Mood/Affect Integumentary: Yes: Normal Color, Dry (Decreased skin turgor. Dry skin except for face.), Warm, Diaphoresis (Beads of sweat), Track Posey (New track posey in antecubital areas. No increased warmth or induration.) Lymphatic: Yes: Within Normal Limits - Diagnostic (1) GERD (gastroesophageal reflux disease) Current Visit: Yes Status: Chronic Qualifiers: Esophagitis presence: esophagitis presence not specified Qualified Code(s) : K21.9 - Gastro-esophageal reflux disease without esophagitis (2) Alcohol dependence with uncomplicated withdrawal Current Visit: Yes Status: Acute (3) Cocaine dependence Current Visit: Yes Status: Chronic Qualifiers: Substance use status: uncomplicated Qualified Code(s): F14.20 - Cocaine dependence, uncomplicated (4) Dehydration Current Visit: Yes Status: Acute (5) Marijuana dependence Current Visit: Yes Status: Chronic (6) Nicotine dependence Current Visit: Yes Status: Chronic Qualifiers: Nicotine product type: cigarettes Substance use status: in withdrawal Qualified Code(s): F17.213 - Nicotine dependence, cigarettes, with withdrawal (7) Opioid dependence with withdrawal Current Visit: Yes Status: Acute (8) Anxiolytic dependence Current Visit: Yes Status: Chronic Comment: On prescribed clonazepam x 3 months. Cleared for Admission S - Detox or Rehab [facility] Level of Care: Medically Managed Detox Regimen/Protocol: Methadone/Librium S Breath Alcohol Content Breath Alcohol Content: 0.040 Urine Drug Screen - Results Drug Screen Negative: No Urine Drug Screen Results: THC-Marijuana, KM-Cocaine, OPI-Opiates, BZO- Benzodiazepines, BUP-Suboxone Inpatient Rehab Admission - Rehab Decision to Admit Inpatient rehab admission?: No
[2018-08-11] MEDS ORDERED: MAGNESIUM CITRATE 300 ML BOTTLE PO PRN (19:55)
[2018-08-11] MEDS ORDERED: MENTHOL/PHENOL 1 EACH UD MM PRN (19:55)
[2018-08-11] MEDS ORDERED: cloNIDine HCL 0.1 MG TABLET PO PRN (19:55)
[2018-08-11] MEDS ORDERED: MAG HYDROX/AL HYDROX/SIMETH 30 ML UNIT-DOSE CUP PO PRN (19:55)
[2018-08-11] MEDS ORDERED: NALOXONE HCL 0.4 MG/ML VIAL IVPUSH PRN (19:55)
[2018-08-11] MEDS ORDERED: ACETAMINOPHEN 325 MG TABLET (FP) PO PRN ×2 (19:55)
[2018-08-11] MEDS ORDERED: BISMUTH SUBSALICYLATE 524 MG/30 ML UD PO PRN (19:55)
[2018-08-11] MEDS ORDERED: IBUPROFEN 400 MG TABLET (FP) PO PRN (19:55)
[2018-08-11] MEDS ORDERED: MAGNESIUM HYDROX 2400MG/30ML ORAL SUSPENSION 30 ML CUP PO PRN (19:55)
[2018-08-11] MEDS ORDERED: METHOCARBAMOL 500 MG TABLET PO PRN (19:55)
[2018-08-11] MEDS ORDERED: guaiFENesin 200 MG/10 ML 10 ML UNIT-DOSE CUPS PO PRN (19:55)
[2018-08-11] MEDS ORDERED: PROCHLORPERAZINE MALEATE 5 MG TABLET PO PRN (19:55)
[2018-08-11] MEDS ORDERED: NICOTINE POLACRILEX 2 MG GUM BUC PRN (19:55)
[2018-08-11] MEDS ORDERED: chlordiazePOXIDE HCL 25 MG CAPSULE PO PRN (20:00)
[2018-08-11] MEDS ORDERED: chlordiazePOXIDE HCL 25 MG CAPSULE PO ONE (20:15)
[2018-08-11] MEDS: chlordiazePOXIDE HCL 25 MG CAPSULE PO SCH (22:24)
[2018-08-11] MEDS: THIAMINE HCL 100 MG TABLET (FP) PO SCH (22:24)
[2018-08-11] MEDS: MELATONIN 5 MG TABLETS PO PRN (22:25)
[2018-08-11] MEDS ORDERED: METHADONE HCL 10 MG TABLET (FOR DETOX USE ONLY) PO ONE (23:00)
[2018-08-12] MEDS: chlordiazePOXIDE HCL 25 MG CAPSULE PO SCH ×4 (05:06→22:40)
[2018-08-12] MEDS ORDERED: METHADONE HCL 10 MG TABLET (FOR DETOX USE ONLY) PO ONE (10:00)
--- NOTE | 2018-08-12 10:00 | PN ---
[facility] CIWA - CIWA Score Nausea/Vomitin-Mild Nausea/No Vomiting Muscle Tremors: 2 Anxiety: 3 Agitation: 2 Paroxysmal Sweats: 1-Minimal Palms Moist Orientation: 2-Disoriented Date<2 days Tacttile Disturbances: 0-None Auditory Disturbances: 0-None Visual Disturbances: 0-None Headache: 1-Very Mild CIWA-Ar Total Score: 12 [facility] COWS - Scale Resting Pulse: 1= [place] 81-100 Sweatin= Chills/Flushing Restless Observation: 0= Sits Still Pupil Size: 0= Normal to Room Light Bone or Joint Aches: 1= Mild Discomfort Runny Nose/ Eye Tearin= Nasal Congestion GI Upset > 30mins: 1= Stomach Cramp Tremor Observation of Outstretched Hands: 2= Slight Tremor Visible Yawning Observation: 2= >3x During Session Anxiety or Irritability: 2=Irritable/Anxious Goose Flesh Skin: 0=Smooth Skin COWS Score: 11 [facility] Progress Note (SOAP) Subjective: feeling ok today trouble sleep through the night low energy general body aches and joints pain Objective: 08/12/18 10:00 Vital Signs Temperature 97.4 F L 08/12/18 09:27 Pulse Rate 66 08/12/18 09:27 Respiratory Rate 18 08/12/18 09:27 Blood Pressure 113/74 08/12/18 09:27 O2 Sat by Pulse Oximetry (%) lab pending Assessment: 08/12/18 10:01 withdrawal sx Plan: continue detox
[2018-08-12] MEDS: PRENATAL VITAMINS W/ FOLIC ACID TABLET (FP) PO SCH (10:14)
[2018-08-12] MEDS: PANTOPRAZOLE 40 MG TABLET (FP) PO SCH (10:14)
[2018-08-12 10:46] LABS: ALBUMIN 3.6 g/dl (3.4-5.0); ALK PHOS 205 U/L (45-117); ANION GAP 7 MMOL/L (8-16); BILIRUBIN,TOTAL 0.8 mg/dL (0.2-1); BLOOD UREA NITROGEN 10 mg/dL (7-18); CALCIUM 8.4 mg/dL (8.5-10.1); CHLORIDE 95 mmol/L (98-107); CO2 31 mmol/L (21-32); CREATININE 0.8 mg/dL (0.55-1.3); GLUCOSE,RANDOM 113 mg/dL (74-106); POTASSIUM 3.7 mmol/L (3.5-5.1); SGOT/AST 165 U/L (15-37); SGPT/ALT 126 U/L (13-61); SODIUM 133 mmol/L (136-145); TOT PROT 6.7 g/dl (6.4-8.2)
[2018-08-12 11:19] LABS: HEMATOCRIT 38.7 % (35.4-49); HEMOGLOBIN 13.6 GM/dL (11.7-16.9); MCH 30.5 pg (25.7-33.7); MCHC 35.3 g/dl (32.0-35.9); MEAN CELL VOLUME 86.4 fl (80-96); MEAN PLT VOLUME 9.1 fl (7.5-11.1); PLATELET COUNT 146 K/MM3 (134-434); RBC 4.48 M/mm3 (4.00-5.60); RDW 13.5 % (11.9-15.9); WHITE BLOOD COUNT 2.6 K/mm3 (4.0-10.0)
[2018-08-12] MEDS: THIAMINE HCL 100 MG TABLET (FP) PO SCH (22:41)
[2018-08-12] MEDS: MELATONIN 5 MG TABLETS PO PRN (22:41)
[2018-08-13] MEDS: chlordiazePOXIDE HCL 25 MG CAPSULE PO SCH ×3 (05:14→17:23)
[2018-08-13] MEDS ORDERED: METHADONE HCL 10 MG TABLET (FOR DETOX USE ONLY) PO ONE (10:00)
[2018-08-13] MEDS: PANTOPRAZOLE 40 MG TABLET (FP) PO SCH (10:23)
[2018-08-13] MEDS: PRENATAL VITAMINS W/ FOLIC ACID TABLET (FP) PO SCH (10:23)
--- NOTE | 2018-08-13 10:57 | PN ---
[facility] CIWA - CIWA Score Nausea/Vomitin-No Nausea/No Vomiting Muscle Tremors: 2 Anxiety: 2 Agitation: 1-Slight > Activity Paroxysmal Sweats: 1-Minimal Palms Moist Orientation: 1-Uncertain about Date Tacttile Disturbances: 0-None Auditory Disturbances: 0-None Visual Disturbances: 0-None Headache: 1-Very Mild CIWA-Ar Total Score: 8 [facility] COWS - Scale Resting Pulse: 0= [place] 80 or Below Sweatin= Chills/Flushing Restless Observation: 0= Sits Still Pupil Size: 0= Normal to Room Light Bone or Joint Aches: 1= Mild Discomfort Runny Nose/ Eye Tearin= Nasal Congestion GI Upset > 30mins: 1= Stomach Cramp Tremor Observation of Outstretched Hands: 1= Tremor [place], Not Seen Yawning Observation: 1= 1-2x During Session Anxiety or Irritability: 1=Feels Anxious/Irritable Goose Flesh Skin: 0=Smooth Skin COWS Score: 7 S Progress Note (SOAP) Subjective: feeling better less body aches able to social with peers in day room Objective: 08/13/18 10:57 Vital Signs Temperature 97.5 F L 08/13/18 09:13 Pulse Rate 66 08/13/18 09:13 Respiratory Rate 18 08/13/18 09:13 Blood Pressure 113/64 08/13/18 09:13 O2 Sat by Pulse Oximetry (%) Laboratory Last Values WBC 2.6 K/mm3 (4.0-10.0) L 08/12/18 07:00 RBC 4.48 M/mm3 (4.00-5.60) 08/12/18 07:00 Hgb 13.6 GM/dL (11.7-16.9) 08/12/18 07:00 Hct 38.7 % (35.4-49) 08/12/18 07:00 MCV 86.4 fl (80-96) 08/12/18 07:00 MCH 30.5 pg (25.7-33.7) 08/12/18 07:00 MCHC 35.3 g/dl (32.0-35.9) 08/12/18 07:00 RDW 13.5 % (11.9-15.9) 08/12/18 07:00 Plt Count 146 K/MM3 (134-434) D 08/12/18 07:00 MPV 9.1 fl (7.5-11.1) 08/12/18 07:00 Sodium 133 mmol/L (136-145) L 08/12/18 07:00 Potassium 3.7 mmol/L (3.5-5.1) 08/12/18 07:00 Chloride 95 mmol/L (98-107) L 08/12/18 07:00 Carbon Dioxide 31 mmol/L (21-32) 08/12/18 07:00 Anion Gap 7 MMOL/L (8-16) L 08/12/18 07:00 BUN 10 mg/dL (7-18) 08/12/18 07:00 Creatinine 0.8 mg/dL (0.55-1.3) 08/12/18 07:00 Creat Clearance w eGFR 114.29 (>60) 08/12/18 07:00 Random Glucose 113 mg/dL (74-106) H 08/12/18 07:00 Calcium 8.4 mg/dL (8.5-10.1) L 08/12/18 07:00 Total Bilirubin 0.8 mg/dL (0.2-1) 08/12/18 07:00 AST 165 U/L (15-37) H 08/12/18 07:00 ALT 126 U/L (13-61) H 08/12/18 07:00 Alkaline Phosphatase 205 U/L (45-117) H 08/12/18 07:00 Total Protein 6.7 g/dl (6.4-8.2) 08/12/18 07:00 Albumin 3.6 g/dl (3.4-5.0) 08/12/18 07:00 RPR Titer Nonreactive (NONREACTIVE) 08/12/18 07:00 lab noted low wbc repeat cbc 08/13/18 10:59 Assessment: 08/13/18 10:59 alcohol and opiate withdrawal sx 08/13/18 11:00 low wbc Plan: continue detox repeat cbc
[2018-08-13 17:01] VITALS: BP 113/54; PULSE 67; TEMP 97
--- NOTE | 2018-08-13 18:49 | DS ---
[facility] Detox Discharge Summary Admission Date: 08/11/18 Discharge Date: 08/13/18 - History Present History: Alcohol Dependence, Cocaine Dependence, Opioid Dependence Additional Comments: PT. IS ALERT AND ORIENTED X 3. HE STATED HE IS LEAVING AMA BECAUSE HE REPORTS IS GOING TO [facility] IN [place], [place] ON 08/14/18. HE WAS EDUCATED ON THE RISKS OF NOT COMPLETING TREATMENT. HE WAS ADVISED TO SEEK IMMEDIATE MEDICAL ATTENTION IF HE EXPERIENCES WITHDRAWAL SYMPTOMS AND WAS ADVISED TO FOLLOW-UP WITH PCP FOR ROUTINE CARE; CLIENT VERBALIZED UNDERSTANDING. CLIENT IS DISCHARGED IN STABLE CONDITION. - Physical Exam Results Vital Signs: Vital Signs Temperature 97 F L 08/13/18 17:00 Pulse Rate 67 08/13/18 17:00 Respiratory Rate 17 08/13/18 17:00 Blood Pressure 113/54 L 08/13/18 17:00 O2 Sat by Pulse Oximetry (%) Pertinent Admission Physical Exam Findings: Laboratory Last Values WBC 2.6 K/mm3 (4.0-10.0) L 08/12/18 07:00 RBC 4.48 M/mm3 (4.00-5.60) 08/12/18 07:00 Hgb 13.6 GM/dL (11.7-16.9) 08/12/18 07:00 Hct 38.7 % (35.4-49) 08/12/18 07:00 MCV 86.4 fl (80-96) 08/12/18 07:00 MCH 30.5 pg (25.7-33.7) 08/12/18 07:00 MCHC 35.3 g/dl (32.0-35.9) 08/12/18 07:00 RDW 13.5 % (11.9-15.9) 08/12/18 07:00 Plt Count 146 K/MM3 (134-434) D 08/12/18 07:00 MPV 9.1 fl (7.5-11.1) 08/12/18 07:00 Sodium 133 mmol/L (136-145) L 08/12/18 07:00 Potassium 3.7 mmol/L (3.5-5.1) 08/12/18 07:00 Chloride 95 mmol/L (98-107) L 08/12/18 07:00 Carbon Dioxide 31 mmol/L (21-32) 08/12/18 07:00 Anion Gap 7 MMOL/L (8-16) L 08/12/18 07:00 BUN 10 mg/dL (7-18) 08/12/18 07:00 Creatinine 0.8 mg/dL (0.55-1.3) 08/12/18 07:00 Creat Clearance w eGFR 114.29 (>60) 08/12/18 07:00 Random Glucose 113 mg/dL (74-106) H 08/12/18 07:00 Calcium 8.4 mg/dL (8.5-10.1) L 08/12/18 07:00 Total Bilirubin 0.8 mg/dL (0.2-1) 08/12/18 07:00 AST 165 U/L (15-37) H 08/12/18 07:00 ALT 126 U/L (13-61) H 08/12/18 07:00 Alkaline Phosphatase 205 U/L (45-117) H 08/12/18 07:00 Total Protein 6.7 g/dl (6.4-8.2) 08/12/18 07:00 Albumin 3.6 g/dl (3.4-5.0) 08/12/18 07:00 RPR Titer Nonreactive (NONREACTIVE) 08/12/18 07:00 LABS NOTED - Medication Discharge Medications: Ambulatory Orders Omeprazole 20 mg PO DAILY 08/24/17 - Diagnosis (1) Alcohol dependence with uncomplicated withdrawal Current Visit: Yes Status: Chronic (2) Opioid dependence with withdrawal Current Visit: Yes Status: Chronic (3) Cocaine dependence Current Visit: Yes Status: Chronic Qualifiers: Substance use status: uncomplicated Qualified Code(s): F14.20 - Cocaine dependence, uncomplicated (4) Marijuana dependence Current Visit: Yes Status: Chronic (5) Nicotine dependence Current Visit: Yes Status: Chronic Qualifiers: Nicotine product type: cigarettes Substance use status: in withdrawal Qualified Code(s): F17.213 - Nicotine dependence, cigarettes, with withdrawal - AMA Did Patient Leave Against Medical Advice: Yes
[2018-08-13] MEDS ORDERED: chlordiazePOXIDE HCL 10 MG CAPSULE PO SCH (23:00)
[2018-08-13] MEDS ORDERED: chlordiazePOXIDE HCL 10 MG CAPSULE PO PRN (23:00)
[2018-08-14] MEDS ORDERED: METHADONE HCL 10 MG TABLET (FOR DETOX USE ONLY) PO ONE (10:00)
[2018-08-14] MEDS ORDERED: chlordiazePOXIDE HCL 10 MG CAPSULE PO SCH (23:00)
[2018-08-15] MEDS ORDERED: METHADONE HCL 5 MG TABLET (FOR DETOX USE ONLY) PO ONE (06:00)
== END 2018-08-13 18:47 | disposition left against medical advice (07) | DRG 770 ==
LOC: YASAS 17:06 → Y3N 20:08
PROVIDERS: ADMIT Surgery; ATTEND Surgery
PROC: HZ2ZZZZ Detoxification Services for Substance Abuse Treatment (ICD-10-PCS; principal; 2018-08-11)
DX: F11.23 Opioid dependence with withdrawal (principal); F10.230 Alcohol dependence with withdrawal, uncomplicated; F13.20 Sedative, hypnotic or anxiolytic dependence, uncomplicated; F14.20 Cocaine dependence, uncomplicated; F12.20 Cannabis dependence, uncomplicated; F17.213 Nicotine dependence, cigarettes, with withdrawal; D72.829 Elevated white blood cell count, unspecified; R00.0 Tachycardia, unspecified; K21.9 Gastro-esophageal reflux disease without esophagitis; E86.0 Dehydration; Z59.0 Homelessness
CPT/HCPCS: 36415; 80053; 85027; 86593

== ENCOUNTER 2019-05-18 12:32 | Inpatient (IN) | payer OTHER ==
[2019-05-18 13:33] VITALS: BMI 22.7
--- NOTE | 2019-05-18 17:24 | HP ---
COWS - Scale Resting Pulse: 0= CT 80 or Below Sweatin=Flushed/Facial Moisture Restless Observation: 1= Difficult to Sit Still Pupil Size: 5= Only Rim of Iris Seen (Pupils = 6 mm) Bone or Joint Aches: 1= Mild Discomfort Runny Nose/ Eye Tearin= Nasal Congestion GI Upset > 30mins: 2= Nausea/Diarrhea Tremor Observation: 4= Gross Tremor/Twitching Yawning Observation: 0= None Anxiety or Irritability: 1=Feels Anxious/Irritable Goose Flesh Skin: 0=Smooth Skin COWS Score: 17 CIWA Score Nausea/Vomitin-Mild Nausea/No Vomiting Muscle Tremors: 4-Moderate,w/Arms Extend Anxiety: 3 Agitation: 1-Slight > Activity Paroxysmal Sweats: 3 (Increased facial moisture) Orientation: 1-Uncertain about Date Tacttile Disturbances: 0-None Auditory Disturbances: 0-None Visual Disturbances: 0-None Headache: 0-None Present CIWA-Ar Total Score: 13 - Admission Criteria OASAS Guidelines: Admission for Medically Managed Detox: Requires at least one of the followin. CIWA greater than 12 2. Seizures within the past 24 hours 3. Delirium tremens within the past 24 hours 4. Hallucinations within the past 24 hours 5. Acute intervention needed for co occurring medical disorder 6. Acute intervention needed for co occurring psychiatric disorder 7. Severe withdrawal that cannot be handled at a lower level of care (continued vomiting, continued diarrhea, abnormal vital signs) requiring intravenous medication and/or fluids 8. Patient presents the following: CIWA greater than 12 Admission Criteria Met: Admission criteria met Admitting History and Physical - Smoking History Smoking history: Current every day smoker Have you smoked in the past 12 months: Yes Aproximately how many cigarettes per day: 10 - Alcohol/Substance Use Hx Alcohol Use: Yes Admission ROS [facility] - [facility] Allergies/Adverse Reactions: Allergies Allergy/AdvReac Type Severity Reaction Status Date / Time No Known Allergies Allergy Verified 05/18/19 13:21 History of Present Illness: 28 yo presents for alcohol and heroin detox. Left in July 2018 and did not f/u w/ rehab. States relapsed in February 2019 DARLEEN: 0.0 UTox: + THC/KM/FEN/MOP/BUP Denies blackouts or seizures. Last overdose years ago. Has prescribed Suboxone, which he states has not taken for 5 days and does not want to restart. Patient stated same thing during last admission but has had 2 family members pass away, his mother doing so in March. Benefits of admission out weigh the risks. Patient states has also stopped taking clonazepam. (UTox - neg for BZO) Patient requesting a methadone detox. Alcohol use began at age 11. Currently drinking 1/4 charity and 4 locos daily. Last drink yesterday @ 3 pm. Opioid use began at age 19. Last used 05/17/ in am. IVDU. Denies sharing needles or works. Patient has a Narcan Kit at home. Cocaine use began at age 14. Daily- IV or smokes. Last used 05/17. Marijuana use began at age 9. Daily use. Lasy smokes 05/17. Nicotine use began at age 9. Smokes 1/2 PPD. Declines nicotine patch - states irritates skin. Will accept gum. PMHx: GERD; MHHx: Bipolar. Anxiety/Depression. Insomnia. Denies thoughts of harming self or others. States sees a MH provider through [facility]. SHx: Staying w/ family. Unemployed. Legal issues (out on correa) Patient Name: Miguel Angel Gallardo Date: 1990 Address: [address] [place] [address] Sex: Male Rx Written Rx Dispensed Drug Quantity Days Supply Prescriber Name 04/09/2019 04/11/2019 clonazepam 0.5 mg tablet 75 25 Angélica Irvin 04/11/2019 04/11/2019 buprenorphine-naloxone 8-2 mg sl film 42 21 Jake Portillo MD 04/04/2019 04/04/2019 clonazepam 0.5 mg tablet 15 5 Angélica Irvin 03/07/2019 03/07/2019 buprenorphine-naloxone 8-2 mg sl film 42 21 Jake Portillo MD 02/26/2019 02/26/2019 clonazepam 0.5 mg tablet 90 30 Angélica Irvin 02/14/2019 02/16/2019 buprenorphine-naloxone 8-2 mg sl film 42 21 Jake Portillo MD 01/28/2019 01/28/2019 clonazepam 0.5 mg tablet 90 30 Angélica Irvin 01/24/2019 01/24/2019 buprenorphine-naloxone 8-2 mg sl film 42 21 Lindsey, Jake Ojeda MD 01/03/2019 01/03/2019 buprenorphine-naloxone 8-2 mg sl film 42 21 Lindsey, Jake Ojeda MD 12/23/2018 12/24/2018 clonazepam 0.5 mg tablet 90 30 Albaro, Angélica L 12/04/2018 12/04/2018 buprenorphine-naloxone 8-2 mg sl film 42 21 Lindsey, Jake Ojeda MD 11/25/2018 11/26/2018 clonazepam 0.5 mg tablet 90 30 Albaro, Angélica L 11/13/2018 11/14/2018 buprenorphine-naloxone 8-2 mg sl film 42 21 Lindsey, Jake Ojeda MD 10/28/2018 10/29/2018 clonazepam 0.5 mg tablet 90 30 Albaro, Angélica L 10/23/2018 10/24/2018 buprenorphine-naloxone 8-2 mg sl film 42 21 Lindsey, Jake Ojeda MD 10/02/2018 10/03/2018 buprenorphine-naloxone 8-2 mg sl film 42 21 Lindsey, Jake Ojeda MD 09/30/2018 10/01/2018 clonazepam 0.5 mg tablet 90 30 Albaro, Angélica L 09/11/2018 09/11/2018 buprenorphine-naloxone 8-2 mg sl film 42 21 Lindsey, Jake Ojeda MD 09/02/2018 09/03/2018 clonazepam 0.5 mg tablet 90 30 Albaro, Angélica L 08/28/2018 08/28/2018 buprenorphine-naloxone 8-2 mg sl film 30 15 Lindsey, Jake Ojeda MD 07/29/2018 07/29/2018 suboxone 8 mg-2 mg sl film 42 21 Lindsey, Jake Ojeda MD 07/22/2018 07/23/2018 clonazepam 0.5 mg tablet 60 30 Albaro, Angélica L 07/08/2018 07/08/2018 suboxone 8 mg-2 mg sl film 42 21 Lindsey, Jake Ojeda MD 06/24/2018 06/24/2018 suboxone 8 mg-2 mg sl film 30 15 Lindsey, Jake Ojeda MD 06/19/2018 06/19/2018 clonazepam 0.5 mg tablet 75 18 AlbaroRaulth L Patient Name: Miguel Angel Gallardo Date: 1990 Address: [address] [place] [address] Sex: Male Rx Written Rx Dispensed Drug Quantity Days Supply Prescriber Name 06/10/2018 06/10/2018 suboxone 8 mg-2 mg sl film 29 14 Jake Portillo MD 05/31/2018 06/02/2018 clonazepam 0.5 mg tablet 60 30 Angélica Irvin 05/27/2018 05/27/2018 suboxone 8 mg-2 mg sl film 22 15 Jake Portillo MD 05/22/2018 05/26/2018 clonazepam 0.5 mg tablet 14 7 Angélica Irvin Exam Limitations: No Limitations - Ebola screening Have you traveled outside of the country in the last 21 days: No (N) Have you had contact with anyone from an Ebola affected area: No Have you been sick,other than usual withdrawal symptoms: No Do you have a fever: No - Review of Systems Constitutional: Chills, Diaphoresis, Changes in sleep (Difficulty falling asleep. Takes Remeron for sleep), Unintentional Wgt. Loss EENT: reports: Blurred Vision, Nose Congestion Respiratory: reports: No Symptoms reported Cardiac: reports: No Symptoms Reported GI: reports: Diarrhea (Watery w/o solids. Yellowish.), Nausea, Indigestion ( Acid Reflux - on omeprazole) : reports: No Symptoms Reported Musculoskeletal: reports: Back Pain (r/t withdrawal), Joint Pain (r/t withdrawal ) Integumentary: reports: Bruising ((R) arm r/t IVDU) Neuro: reports: Tremors Endocrine: reports: No Symptoms Reported Hematology: reports: No Symptoms Reported Psychiatric: reports: Orientated x3 (Unsure of exact day. Knows month and year.) , Agitated, Anxious, Depressed (Denies thoughts of harming self or others.) Patient History - Patient Medical History Hx Anemia: No Hx Asthma: No Hx Chronic Obstructive Pulmonary Disease (COPD): No Hx Cancer: No Hx Cardiac Disorders: No Hx Congestive Heart Failure: No Hx Hypertension: No Hx Hypercholesterolemia: No Hx Pacemaker: No HX Cerebrovascular Accident: No Hx Seizures: No Hx Dementia: No Hx Diabetes: No Hx Gastrointestinal Disorders: No Hx Liver Disease: No Hx Genitourinary Disorders: No Hx Sexually Transmitted Disorders: No Hx Renal Disease (ESRD): No Hx Thyroid Disease: No Hx Human Immunodeficiency Virus (HIV): No (Negative hx) Hx Hepatitis C: Yes (never treated) Hx Depression: Yes Hx Suicide Attempt: No Hx Bipolar Disorder: Yes (hx of meds) Hx Schizophrenia: No - Patient Surgical History Past Surgical History: No Hx Neurologic Surgery: No Hx Cataract Extraction: No Hx Cardiac Surgery: No Hx Lung Surgery: No Hx Breast Surgery: No Hx Breast Biopsy: No Hx Abdominal Surgery: No Hx Appendectomy: No Hx Cholecystectomy: No Hx Genitourinary Surgery: No Hx Section: No Hx Orthopedic Surgery: No Anesthesia Reaction: No - PPD History Previous Implant?: Yes Documented Results: Negative w/proof [facility] Yes Date: 08/13/18 Results: 0 mm PPD to be Administered?: No - Smoking Cessation Smoking history: Current every day smoker Have you smoked in the past 12 months: Yes Aproximately how many cigarettes per day: 10 Cigars Per Day: 0 Hx Chewing Tobacco Use: No Initiated information on smoking cessation: Yes 'Breaking Loose' booklet given: 05/18/19 - Substance & Tx. History Hx Alcohol Use: Yes Hx Substance Use: Yes Substance Use Type: Alcohol, Cocaine, Heroin, Marijuana, Opiates Hx Substance Use Treatment: Yes (detox, rehab years ago; recent d/c'd suboxone ) - Substances abused Alcohol Substance route: Oral Frequency: Daily Amount used: 4 locos and 1/5 of E[facility] charity Age of first use: 11 Date of last use: 05/16/19 Heroin Substance route: Injection Frequency: Daily Amount used: 1/2 - 1 gram Age of first use: 19 Date of last use: 05/17/19 Cocaine Substance route: Injection Frequency: Daily Amount used: 1/2 gram day Age of first use: 14 Date of last use: 05/17/19 Marijuana/Hashish Substance route: Smoking Frequency: Daily Amount used: 1/2 gram Age of first use: 9 Date of last use: 05/17/19 Admission Physical Exam BHS - Vital Signs Vital Signs: Vital Signs - 24 hr 05/18/19 05/18/19 13:24 13:43 Temperature 97.1 F L 97.1 F L Pulse Rate 75 75 Respiratory 18 18 Rate Blood Pressure 120/66 120/66 - Physical General Appearance: Yes: Nourished, Mild Distress, Tremorous, Sweating ( Increased facial moisture), Anxious HEENTM: Yes: EOMI, Hearing grossly Normal, Normocephalic, Normal Voice, ATUL ( Pupils = 6 mm), Pharynx Normal, Nasal Congestion Respiratory: Yes: Lungs Clear (Pulse Ox = 98 %), Normal Breath Sounds, No Respiratory Distress Neck: Yes: No masses,lesions,Nodules, Supple Breast: Yes: Breast Exam Deferred Cardiology: Yes: Regular Rhythm, Regular Rate, S1, S2 Abdominal: Yes: Non Tender, Flat, Soft, Increased Bowel Sounds Genitourinary: Yes: Within Normal Limits Back: Yes: Normal Inspection Musculoskeletal: Yes: full range of Motion, Gait Steady Extremities: Yes: Normal Capillary Refill (Periph pulses +), Tremors (gross) 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: Yes: improvement coordinator II-XII NML intact, Alert, Motor Strength 5/5, Normal Response Integumentary: Yes: Normal Color, Warm, Moist (Increased facial moisture), Track Posey (Old an new track posey rosemary antecubital area. (R) arm w/ increased erythema w/ increased warmth or induration.) Lymphatic: Yes: Within Normal Limits - Diagnostic (1) Alcohol dependence with uncomplicated withdrawal Current Visit: Yes Status: Acute (2) Cannabis dependence Current Visit: Yes Status: Chronic (3) Cocaine dependence Current Visit: Yes Status: Chronic Qualifiers: Substance use status: uncomplicated Qualified Code(s): F14.20 - Cocaine dependence, uncomplicated (4) GERD (gastroesophageal reflux disease) Current Visit: Yes Status: Chronic Qualifiers: Esophagitis presence: esophagitis presence not specified Qualified Code(s) : K21.9 - Gastro-esophageal reflux disease without esophagitis (5) Nicotine dependence Current Visit: Yes Status: Chronic Qualifiers: Nicotine product type: cigarettes Substance use status: uncomplicated Qualified Code(s): F17.210 - Nicotine dependence, cigarettes, uncomplicated (6) Opioid dependence with withdrawal Current Visit: Yes Status: Acute Cleared for Admission S - Detox or Rehab [facility] Level of Care: Medically Managed Detox Regimen/Protocol: Methadone/Librium Claeared for Rehab Admission: No Breathalyzer - Breathalyzer Breathalyzer: 0 Urine Drug Screen - Test Device Lot number: [id number] Expiration date: 12/18/20 - Control Is test valid?: No - Results Drug screen NEGATIVE: No Urine drug screen results: THC-Marijuana, KM-Cocaine, FEN-Fentanyl, MOP-Opiates , BUP-Suboxone Inpatient Rehab Admission - Rehab Decision to Admit Inpatient rehab admission?: No
[2019-05-18] MEDS ORDERED: MAGNESIUM CITRATE 300 ML BOTTLE PO PRN (18:05)
[2019-05-18] MEDS ORDERED: MELATONIN 5 MG TABLETS PO PRN (18:05)
[2019-05-18] MEDS ORDERED: IBUPROFEN 400 MG TABLET (FP) PO PRN (18:05)
[2019-05-18] MEDS ORDERED: MAGNESIUM HYDROX 2400MG/30ML ORAL SUSPENSION 30 ML CUP PO PRN (18:05)
[2019-05-18] MEDS ORDERED: METHADONE HCL 10 MG TABLET (FOR DETOX USE ONLY) PO ONE (18:05)
[2019-05-18] MEDS ORDERED: MENTHOL/PHENOL 1 EACH UD MM PRN (18:05)
[2019-05-18] MEDS ORDERED: ACETAMINOPHEN 325 MG TABLET (FP) PO PRN ×2 (18:05)
[2019-05-18] MEDS ORDERED: BISMUTH SUBSALICYLATE 524 MG/30 ML UD PO PRN (18:05)
[2019-05-18] MEDS ORDERED: NICOTINE POLACRILEX 4 MG GUM BUC PRN (18:05)
[2019-05-18] MEDS ORDERED: METHOCARBAMOL 500 MG TABLET PO PRN (18:05)
[2019-05-18] MEDS ORDERED: chlordiazePOXIDE HCL 25 MG CAPSULE PO ONE (18:05)
[2019-05-18] MEDS ORDERED: chlordiazePOXIDE HCL 10 MG CAPSULE PO PRN (18:05)
[2019-05-18] MEDS ORDERED: MAG HYDROX/AL HYDROX/SIMETH 30 ML UNIT-DOSE CUP PO PRN (18:05)
[2019-05-18] MEDS: chlordiazePOXIDE HCL 25 MG CAPSULE PO SCH (22:05)
[2019-05-18] MEDS: THIAMINE HCL 100 MG TABLET (FP) PO SCH (22:05)
[2019-05-18] MEDS ORDERED: GABAPENTIN 100 MG CAPSULE (FP) PO ONE (23:00)
[2019-05-19] MEDS: chlordiazePOXIDE HCL 25 MG CAPSULE PO SCH ×3 (05:25→22:06)
[2019-05-19] MEDS ORDERED: METHADONE HCL 5 MG TABLET (FOR DETOX USE ONLY) ONE (09:20)
[2019-05-19] MEDS ORDERED: METHADONE HCL 10 MG TABLET (FOR DETOX USE ONLY) ONE (09:20)
[2019-05-19 09:48] LABS: HEMATOCRIT 38.4 % (35.4-49); HEMOGLOBIN 13.3 GM/dL (11.7-16.9); MCHC 34.5 g/dl (32.0-35.9); MEAN CELL VOLUME 86.7 fl (80-96); MEAN PLT VOLUME 9.1 fl (7.5-11.1); PLATELET COUNT 180 K/MM3 (134-434); RBC 4.43 M/mm3 (4.00-5.60); RDW 12.8 % (11.9-15.9); WHITE BLOOD COUNT 4.8 K/mm3 (4.0-10.0)
[2019-05-19] MEDS ORDERED: METHADONE (DETOX) 20 MG, METHADONE (DETOX) 5 MG PO ONE (10:00)
[2019-05-19 10:35] LABS: ALBUMIN 3.5 g/dl (3.4-5.0); BILIRUBIN,TOTAL 0.4 mg/dL (0.2-1); BLOOD UREA NITROGEN 13.8 mg/dL (7-18); CALCIUM 9.3 mg/dL (8.5-10.1); CREATININE 0.8 mg/dL (0.55-1.3); POTASSIUM 4.4 mmol/L (3.5-5.1); TOT PROT 6.5 g/dl (6.4-8.2)
[2019-05-19] MEDS: PRENATAL VITAMINS W/ FOLIC ACID TABLET (FP) PO SCH (10:35)
--- NOTE | 2019-05-19 11:34 | EKG ---
Test Reason : Blood Pressure : / mmHG Vent. Rate : 063 BPM Atrial Rate : 063 BPM P-R Int : 164 ms QRS Dur : 106 ms QT Int : 406 ms P-R-T Axes : 024 087 063 degrees QTc Int : 415 ms NORMAL SINUS RHYTHM NORMAL ECG WHEN COMPARED WITH ECG OF 21-NOV-2017 23:01, NO SIGNIFICANT CHANGE WAS FOUND Confirmed by MICHAEL SALAZAR MD ([id number]) on 05/19/2019 11:34:37 AM Referred By: HEATHER Confirmed By:MICHAEL SALAZAR MD
--- NOTE | 2019-05-19 11:44 | PN ---
S CIWA - CIWA Score Nausea/Vomitin-Mild Nausea/No Vomiting Muscle Tremors: 3 Anxiety: 4-Mod. Anxious/Guarded Agitation: 2 Paroxysmal Sweats: 1-Minimal Palms Moist Orientation: 1-Uncertain about Date (date of week) Tacttile Disturbances: 0-None Auditory Disturbances: 0-None Visual Disturbances: 0-None Headache: 1-Very Mild CIWA-Ar Total Score: 13 BHS COWS - Scale Resting Pulse: 0= MD 80 or Below Sweatin= Chills/Flushing Restless Observation: 0= Sits Still Pupil Size: 1= Pupils >than Normal Bone or Joint Aches: 1= Mild Discomfort Runny Nose/ Eye Tearin= None GI Upset > 30mins: 2= Nausea/Diarrhea (no diarrhea) Tremor Observation of Outstretched Hands: 2= Slight Tremor Visible Yawning Observation: 0= None Anxiety or Irritability: 2=Irritable/Anxious Goose Flesh Skin: 3=Piloerection COWS Score: 12 S Progress Note (SOAP) Subjective: 28 years old male admitted on 05/18/19 for alcohol and opiate withdrawal treating with librium and methadone detox regimens feeling tired prefers to rest in bed today offer ensure tid due to bmi 22 Objective: 05/19/19 11:44 Vital Signs Temperature 96.5 F L 05/19/19 09:07 Pulse Rate 70 05/19/19 09:07 Respiratory Rate 18 05/19/19 09:07 Blood Pressure 119/64 05/19/19 09:07 O2 Sat by Pulse Oximetry (%) Laboratory Last Values WBC 4.8 K/mm3 (4.0-10.0) 05/19/19 08:00 RBC 4.43 M/mm3 (4.00-5.60) 05/19/19 08:00 Hgb 13.3 GM/dL (11.7-16.9) 05/19/19 08:00 Hct 38.4 % (35.4-49) 05/19/19 08:00 MCV 86.7 fl (80-96) 05/19/19 08:00 MCH 30.0 pg (25.7-33.7) 05/19/19 08:00 MCHC 34.5 g/dl (32.0-35.9) 05/19/19 08:00 RDW 12.8 % (11.9-15.9) 05/19/19 08:00 Plt Count 180 K/MM3 (134-434) D 05/19/19 08:00 MPV 9.1 fl (7.5-11.1) 05/19/19 08:00 Sodium 139 mmol/L (136-145) 05/19/19 08:00 Potassium 4.4 mmol/L (3.5-5.1) 05/19/19 08:00 Chloride 106 mmol/L (98-107) 05/19/19 08:00 Carbon Dioxide 28 mmol/L (21-32) 05/19/19 08:00 Anion Gap 5 MMOL/L (8-16) L 05/19/19 08:00 BUN 13.8 mg/dL (7-18) 05/19/19 08:00 Creatinine 0.8 mg/dL (0.55-1.3) 05/19/19 08:00 Est GFR (CKD-EPI)AfAm 138.93 05/19/19 08:00 Est GFR (CKD-EPI)NonAf 119.87 05/19/19 08:00 Random Glucose 106 mg/dL (74-106) 05/19/19 08:00 Calcium 9.3 mg/dL (8.5-10.1) 05/19/19 08:00 Total Bilirubin 0.4 mg/dL (0.2-1) 05/19/19 08:00 AST 13 U/L (15-37) L 05/19/19 08:00 ALT 20 U/L (13-61) 05/19/19 08:00 Alkaline Phosphatase 117 U/L (45-117) 05/19/19 08:00 Total Protein 6.5 g/dl (6.4-8.2) 05/19/19 08:00 Albumin 3.5 g/dl (3.4-5.0) 05/19/19 08:00 HIV 1&2 Antibody Screen Negative 05/19/19 08:00 HIV P24 Antigen Negative 05/19/19 08:00 lab noted Assessment: 05/19/19 11:44 alcohol and opiate withdrawal Plan: libirum and methadone regimens
--- NOTE | 2019-05-19 12:52 | CONSULT ---
[facility] Psychiatric Consult - Data Date of interview: 05/19/19 Admission source: [facility] Identifying data: Revisit to [facility] and admission to [address] [place] [address] for this 28 y/o male self-referred for detoxification. ANGIE issues : heroin, cocaine, cannabis, alcohol, nicotine. Patient is single without children, domiciled, unemployed and supported by relatives. Substance Abuse History: Discussed with the patient. Details in current [facility] report as follows : Smoking history: Current every day smoker. Have you smoked in the past 12 months: Yes. Aproximately how many cigarettes per day: 10. Cigars Per Day: 0. Hx Chewing Tobacco Use: No. Initiated information on smoking cessation: Yes. 'Breaking Loose' booklet given: 05/18/19. - Substance & Tx. History. Hx Alcohol Use: Yes. Hx Substance Use: Yes. Substance Use Type : Alcohol, Cocaine, Heroin, Marijuana, Opiates. Hx Substance Use Treatment: Yes (detox, rehab years ago; recent d/c'd suboxone ). - Substances abused. Alcohol. Substance route: Oral. Frequency: Daily. Amount used: 4 locos and 1 /5 of [facility]. Age of first use: 11. Date of last use: 05/16/19. Heroin. Substance route: Injection. Frequency: Daily. Amount used: 1/2 - 1 gram. Age of first use: 19. Date of last use: 05/17/19. Cocaine. Substance route: Injection. Frequency: Daily. Amount used: 1/2 gram day. Age of first use: 14. Date of last use: 05/17/19. Marijuana/Hashish. Substance route: Smoking. Frequency: Daily. Amount used: 1/2 gram. Age of first use: 9. Date of last use: 05/17/19 Medical History: Medical profile is remarkable for hepatitis C and GERD. Psychiatric History: Patient presents with a history of two psychiatric hospitalizations at [facility] in [facility]. Reportedly diagnosed with Bipolar Disorder. Mr Gallardo states that he has been prescribed, in the past, various psychotropic medications that include zoloft, trazodone, mirtazapine, depakote and seroquel. Chronically non-adherent to OPD care and medications. Patient reports that he has been taking only remeron 45 mg/hs. " I have not taken anything else for months, just remeron for sleep." Prescibed by Dr Nguyen, whom he sees at the [facility] in [facility]. Patient admits to distant history of suicide attempt (2010) via deliberate overdose with cocaine. Physical/Sexual Abuse/Trauma History: Patient denies. Additional Comment: Urine drug screen results: THC-Marijuana, KM-Cocaine, FEN- Fentanyl, MOP-Opiates, BUP-Suboxone. Noted. Mental Status Exam - Mental Status Exam Alert and Oriented to: Time, Place, Person Cognitive Function: Good Patient Appearance: Unkempt, Disheveled Mood: Nervous, Withdrawn, Euthymic Affect: Constricted Patient Behavior: Fatigued, Appropriate, Cooperative Speech Pattern: Clear Voice Loudness: Normal Thought Process: Intact, Goal Oriented Thought Disorder: Not Present Hallucinations: Denies Suicidal Ideation: Denies Homicidal Ideation: Denies Insight/Judgement: Poor Sleep: Poorly, Difficulty falling asleep Appetite: Good Gait/Station: Other (not observed; patient did not get out of bed for the interview) Psychiatric Findings - Problem List ([place] 1, 2,3) (1) Alcohol dependence with uncomplicated withdrawal Current Visit: Yes Status: Acute (2) Opioid dependence with withdrawal Current Visit: Yes Status: Acute (3) Cannabis dependence Current Visit: Yes Status: Chronic (4) Cocaine dependence Current Visit: Yes Status: Chronic Qualifiers: Substance use status: uncomplicated Qualified Code(s): F14.20 - Cocaine dependence, uncomplicated (5) Nicotine dependence Current Visit: Yes Status: Chronic Qualifiers: Nicotine product type: cigarettes Substance use status: uncomplicated Qualified Code(s): F17.210 - Nicotine dependence, cigarettes, uncomplicated (6) Substance induced mood disorder Current Visit: Yes Status: Chronic (7) History of bipolar disorder Current Visit: Yes Status: Chronic (8) Insomnia Current Visit: Yes Status: Chronic Qualifiers: Insomnia type: primary Qualified Code(s): F51.01 - Primary insomnia (9) Non-compliance Current Visit: Yes Status: Chronic - Initial Treatment Plan Initial Treatment Plan: Psychoeducation. Sleep hygiene. Detoxification. AA/NA meetings. Remeron 30 mg po hs. Side effects/benefits are discussed with patient. Mr Gallardo is in agreement with this plan of care. Gave consent (verbal) . Observation.
[2019-05-19] MEDS: THIAMINE HCL 100 MG TABLET (FP) PO SCH (22:06)
[2019-05-20] MEDS: chlordiazePOXIDE 5 MG CAPSULE PO SCH ×2 (05:37→13:19)
[2019-05-20] MEDS ORDERED: METHADONE HCL 10 MG TABLET (FOR DETOX USE ONLY) PO ONE (10:00)
[2019-05-20] MEDS: PRENATAL VITAMINS W/ FOLIC ACID TABLET (FP) PO SCH (10:13)
--- NOTE | 2019-05-20 10:24 | PN ---
[facility] CIWA - CIWA Score Nausea/Vomitin-Mild Nausea/No Vomiting Muscle Tremors: 3 Anxiety: 3 Agitation: 2 Paroxysmal Sweats: 2 Orientation: 0-Oriented Tacttile Disturbances: 0-None Auditory Disturbances: 0-None Visual Disturbances: 0-None Headache: 0-None Present CIWA-Ar Total Score: 11 S COWS - Scale Resting Pulse: 0= NE 80 or Below Sweatin= Chills/Flushing Restless Observation: 0= Sits Still Pupil Size: 1= Pupils >than Normal Bone or Joint Aches: 1= Mild Discomfort Runny Nose/ Eye Tearin= Nasal Congestion GI Upset > 30mins: 2= Nausea/Diarrhea Tremor Observation of Outstretched Hands: 2= Slight Tremor Visible Yawning Observation: 1= 1-2x During Session Anxiety or Irritability: 2=Irritable/Anxious Goose Flesh Skin: 0=Smooth Skin COWS Score: 11 [facility] Progress Note (SOAP) Subjective: 28 years old male admitted on 05/18/19 for alcohol and opiate withdrawal sx management treating with librium and methadone detox regimens ate breakfast resting in bed encourage oral fluid encourage to consider medication assisted treatment program and picking up narcan from pharmacy Objective: 05/20/19 10:25 Vital Signs Temperature 98.2 F 05/20/19 09:09 Pulse Rate 64 05/20/19 09:09 Respiratory Rate 18 05/20/19 09:09 Blood Pressure 106/53 L 05/20/19 09:09 O2 Sat by Pulse Oximetry (%) Laboratory Last Values WBC 4.8 K/mm3 (4.0-10.0) 05/19/19 08:00 RBC 4.43 M/mm3 (4.00-5.60) 05/19/19 08:00 Hgb 13.3 GM/dL (11.7-16.9) 05/19/19 08:00 Hct 38.4 % (35.4-49) 05/19/19 08:00 MCV 86.7 fl (80-96) 05/19/19 08:00 MCH 30.0 pg (25.7-33.7) 05/19/19 08:00 MCHC 34.5 g/dl (32.0-35.9) 05/19/19 08:00 RDW 12.8 % (11.9-15.9) 05/19/19 08:00 Plt Count 180 K/MM3 (134-434) D 05/19/19 08:00 MPV 9.1 fl (7.5-11.1) 05/19/19 08:00 Sodium 139 mmol/L (136-145) 05/19/19 08:00 Potassium 4.4 mmol/L (3.5-5.1) 05/19/19 08:00 Chloride 106 mmol/L (98-107) 05/19/19 08:00 Carbon Dioxide 28 mmol/L (21-32) 05/19/19 08:00 Anion Gap 5 MMOL/L (8-16) L 05/19/19 08:00 BUN 13.8 mg/dL (7-18) 05/19/19 08:00 Creatinine 0.8 mg/dL (0.55-1.3) 05/19/19 08:00 Est GFR (CKD-EPI)AfAm 138.93 05/19/19 08:00 Est GFR (CKD-EPI)NonAf 119.87 05/19/19 08:00 Random Glucose 106 mg/dL (74-106) 05/19/19 08:00 Calcium 9.3 mg/dL (8.5-10.1) 05/19/19 08:00 Total Bilirubin 0.4 mg/dL (0.2-1) 05/19/19 08:00 AST 13 U/L (15-37) L 05/19/19 08:00 ALT 20 U/L (13-61) 05/19/19 08:00 Alkaline Phosphatase 117 U/L (45-117) 05/19/19 08:00 Total Protein 6.5 g/dl (6.4-8.2) 05/19/19 08:00 Albumin 3.5 g/dl (3.4-5.0) 05/19/19 08:00 RPR Titer Nonreactive (NONREACTIVE) 05/19/19 08:00 HIV 1&2 Antibody Screen Negative 05/19/19 08:00 HIV P24 Antigen Negative 05/19/19 08:00 lab noted Assessment: 05/20/19 10:26 alcohol and opiate withdrawal Plan: librium and methadone regimens
[2019-05-20 13:06] VITALS: BP 107/58; PULSE 74; TEMP 97.7
--- NOTE | 2019-05-20 15:19 | DS ---
[facility] Detox Discharge Summary Admission Date: 05/18/19 Discharge Date: 05/20/19 - History Present History: Alcohol Dependence, Opioid Dependence Additional Comments: 28 years old male admitted on 05/18/19 for alcohol and opiate withdrawal sx management treated with librium and methadone detox regimens patient is alert oriented x 3 speech clearly and coherently ambulating steady gait patient insists to leave the detox unit without apparent reason refuses to be seen upon exit Pertinent Past History: patient prefers to leave the detox unit case discussed with the nurse against medical advice is appropriated - Physical Exam Results Vital Signs: Vital Signs Temperature 97.7 F 05/20/19 13:05 Pulse Rate 74 05/20/19 13:05 Respiratory Rate 16 05/20/19 13:05 Blood Pressure 107/58 L 05/20/19 13:05 O2 Sat by Pulse Oximetry (%) Pertinent Admission Physical Exam Findings: alcohol and opiate withdrawal CBC, BMP 05/19/19 08:00 05/19/19 08:00 - Treatment Hospital Course: Detox Protocol Followed, Discharged Condition Good Patient has Accepted a Rehab Referral to: [facility] - Medication Discharge Medications: Ambulatory Orders Omeprazole 20 mg PO DAILY 08/24/17 Gabapentin 300 mg PO TID 05/18/19 Mirtazapine [Remeron -] 45 mg PO HS 05/18/19 clonazePAM [Klonopin -] 0.5 mg PO TID 05/18/19 - Diagnosis (1) Alcohol dependence with uncomplicated withdrawal Status: Acute (2) Opioid dependence with withdrawal Status: Acute (3) Weight loss Status: Acute (4) GERD (gastroesophageal reflux disease) Status: Chronic Qualifiers: Esophagitis presence: esophagitis presence not specified Qualified Code(s) : K21.9 - Gastro-esophageal reflux disease without esophagitis (5) Nicotine dependence Status: Acute Qualifiers: Nicotine product type: cigarettes Substance use status: in withdrawal Qualified Code(s): F17.213 - Nicotine dependence, cigarettes, with withdrawal (6) Substance induced mood disorder Status: Suspected (7) Hepatitis C Status: Chronic Qualifiers: Viral hepatitis chronicity: chronic Hepatic coma status: without hepatic coma Qualified Code(s): B18.2 - Chronic viral hepatitis C - AMA Did Patient Leave Against Medical Advice: Yes
[2019-05-21] MEDS ORDERED: chlordiazePOXIDE HCL 10 MG CAPSULE PO PRN
[2019-05-21] MEDS ORDERED: chlordiazePOXIDE HCL 10 MG CAPSULE PO SCH (05:00)
[2019-05-21] MEDS ORDERED: METHADONE (DETOX) 10 MG, METHADONE (DETOX) 5 MG PO ONE (10:00)
[2019-05-22] MEDS ORDERED: chlordiazePOXIDE HCL 10 MG CAPSULE PO ONE (05:00)
[2019-05-22] MEDS ORDERED: METHADONE HCL 10 MG TABLET (FOR DETOX USE ONLY) PO ONE (10:00)
[2019-05-23] MEDS ORDERED: METHADONE HCL 5 MG TABLET (FOR DETOX USE ONLY) PO ONE (06:00)
== END 2019-05-20 14:55 | disposition left against medical advice (07) | DRG 770 ==
LOC: YASAS 12:32 → Y3N 18:37
PROVIDERS: ADMIT Allergy & Immunology; ATTEND Allergy & Immunology
PROC: HZ2ZZZZ Detoxification Services for Substance Abuse Treatment (ICD-10-PCS; principal; 2019-05-18)
DX: F11.23 Opioid dependence with withdrawal (principal); F10.230 Alcohol dependence with withdrawal, uncomplicated; F14.20 Cocaine dependence, uncomplicated; F12.20 Cannabis dependence, uncomplicated; F17.213 Nicotine dependence, cigarettes, with withdrawal; F19.24 Other psychoactive substance dependence with psychoactive substance-induced mood disorder; K21.9 Gastro-esophageal reflux disease without esophagitis; R63.4 Abnormal weight loss; B18.2 Chronic viral hepatitis C; G47.00 Insomnia, unspecified; Z91.19 Patient's noncompliance with other medical treatment and regimen; Z59.0 Homelessness
CPT/HCPCS: 36415; 80053; 85027; 86593; 87389; 93005; 93010

== ENCOUNTER 2019-06-03 08:41 | Inpatient (IN) | payer OTHER ==
[2019-06-03 09:02] VITALS: BMI 23.2
--- NOTE | 2019-06-03 09:54 | HP ---
"COWS - Scale Resting Pulse: 1= NE 81-100 Sweatin= Chills/Flushing Restless Observation: 1= Difficult to Sit Still Pupil Size: 2= Moderately Dilated Bone or Joint Aches: 2= Severe Diffuse Aches Runny Nose/ Eye Tearin= None GI Upset > 30mins: 1= Stomach Cramp Tremor Observation: 0= None Yawning Observation: 0= None Anxiety or Irritability: 2=Irritable/Anxious Goose Flesh Skin: 0=Smooth Skin COWS Score: 10 CIWA Score Nausea/Vomitin-No Nausea/No Vomiting Muscle Tremors: None Anxiety: 4-Mod. Anxious/Guarded Agitation: 1-Slight > Activity Paroxysmal Sweats: 1-Minimal Palms Moist Orientation: 1-Uncertain about Date Tacttile Disturbances: 0-None Auditory Disturbances: 2-Mild Harshness/Frighten Visual Disturbances: 2-Mild Sensitivity Headache: 3-Moderate CIWA-Ar Total Score: 14 - Admission Criteria OASAS Guidelines: Admission for Medically Managed Detox: Requires at least one of the followin. CIWA greater than 12 2. Seizures within the past 24 hours 3. Delirium tremens within the past 24 hours 4. Hallucinations within the past 24 hours 5. Acute intervention needed for co occurring medical disorder 6. Acute intervention needed for co occurring psychiatric disorder 7. Severe withdrawal that cannot be handled at a lower level of care (continued vomiting, continued diarrhea, abnormal vital signs) requiring intravenous medication and/or fluids 8. Admitting History and Physical - Smoking History Smoking history: Current every day smoker Have you smoked in the past 12 months: Yes Aproximately how many cigarettes per day: 10 - Alcohol/Substance Use Hx Alcohol Use: Yes Admission [facility] Allergies/Adverse Reactions: Allergies Allergy/AdvReac Type Severity Reaction Status Date / Time No Known Allergies Allergy Verified 06/03/19 08:53 History of Present Illness: This report was requested by: Emelia Ledbetter | Reference #: [id number] Others' Prescriptions Patient Name: Miguel Angel Gallardo Date: 1990 Address: [address] [place] [address] Sex: Male Rx Written Rx Dispensed Drug Quantity Days Supply Prescriber Name 04/09/2019 04/11/2019 clonazepam 0.5 mg tablet 75 25 Angélica Irvin 04/11/2019 04/11/2019 buprenorphine-naloxone 8-2 mg sl film 42 21 Lindsey, Jake Ojeda MD 04/04/2019 04/04/2019 clonazepam 0.5 mg tablet 15 5 Albaro, Angélica L 03/07/2019 03/07/2019 buprenorphine-naloxone 8-2 mg sl film 42 21 Lindsey, Jake Ojeda MD 02/26/2019 02/26/2019 clonazepam 0.5 mg tablet 90 30 Albaro, Angélica L 02/14/2019 02/16/2019 buprenorphine-naloxone 8-2 mg sl film 42 21 Lindsey, Jake Ojeda MD 01/28/2019 01/28/2019 clonazepam 0.5 mg tablet 90 30 Albaro, Angélica L 01/24/2019 01/24/2019 buprenorphine-naloxone 8-2 mg sl film 42 21 Lindsey, Jake Ojeda MD 01/03/2019 01/03/2019 buprenorphine-naloxone 8-2 mg sl film 42 21 Lindsey, Jake Ojeda MD 12/23/2018 12/24/2018 clonazepam 0.5 mg tablet 90 30 Albaro, Angélica L 12/04/2018 12/04/2018 buprenorphine-naloxone 8-2 mg sl film 42 21 Lindsey, Jake Ojeda MD 11/25/2018 11/26/2018 clonazepam 0.5 mg tablet 90 30 Albaro, Angélica L 11/13/2018 11/14/2018 buprenorphine-naloxone 8-2 mg sl film 42 21 Lindsey, Jake Ojeda MD 10/28/2018 10/29/2018 clonazepam 0.5 mg tablet 90 30 Albaro, Angélica L 10/23/2018 10/24/2018 buprenorphine-naloxone 8-2 mg sl film 42 21 Lindsey, Jake Ojeda MD 10/02/2018 10/03/2018 buprenorphine-naloxone 8-2 mg sl film 42 21 Lindsey, Jake Ojeda MD 09/30/2018 10/01/2018 clonazepam 0.5 mg tablet 90 30 Albaro, Angélica L 09/11/2018 09/11/2018 buprenorphine-naloxone 8-2 mg sl film 42 21 Lindsey, Jake Ojeda MD 09/02/2018 09/03/2018 clonazepam 0.5 mg tablet 90 30 Albaro, Angélica Alvarado 08/28/2018 08/28/2018 buprenorphine-naloxone 8-2 mg sl film 30 15 Jake Portillo MD 07/29/2018 07/29/2018 suboxone 8 mg-2 mg sl film 42 21 Jake Portillo MD 07/22/2018 07/23/2018 clonazepam 0.5 mg tablet 60 30 Angélica Irvin 07/08/2018 07/08/2018 suboxone 8 mg-2 mg sl film 42 21 Jake Portillo MD 06/24/2018 06/24/2018 suboxone 8 mg-2 mg sl film 30 15 Jake Portillo MD 06/19/2018 06/19/2018 clonazepam 0.5 mg tablet 75 18 Albaro, Angélica Alvarado Patient Name: Miguel Angel Gallardo Date: 1990 Address: [address] [place] [address] Sex: Male Rx Written Rx Dispensed Drug Quantity Days Supply Prescriber Name 06/10/2018 06/10/2018 suboxone 8 mg-2 mg sl film 29 14 Jake Portillo MD pt here requesting detox from heroin use, claims 9 bags/day , left AMA April 2019 , claims his mother 05/04/19 . Of note , during April admission he stated to admitting [employer] that his mother had in March 2019 . latest use yesterday morning, IV 6 bags , needles from pharmacy , denies sharing , + re-using, + abscess from IV cociane yse ( LEFT UE ) Alcohol : since age 11, currentl;y 12 cans/day starts drinking in the mornings , reports anxiety if not drinking , denies seizures. Latest use yesterday evening. heroin : since age 19 , OD 1 week ago , Narcan by EMS . Longest sobriety 1 yr 2017 w/ incarceration . Cocaine : since age 14 , latest 2 weeks ago 100 $/week Marijuana: since age 9 Nicotine : since age 9, 1/2 PPD PMHx: GERD; MHHx: Bipolar. Anxiety/Depression. Insomnia. Denies thoughts of harming self or others. States sees a MH provider through [facility]. SHx: Staying w/ family. Unemployed , finances habit through illicit activities .Driving , Legal issues : [place] ( possession and driving issue ,) had court 05/28/2019 postponed through June 2019. no children Exam Limitations: Clinical Condition - Ebola screening Have you traveled outside of the country in the last 21 days: No Have you had contact with anyone from an Ebola affected area: No - Review of Systems Constitutional: Loss of Appetite EENT: reports: Other (glasses- myopia) Respiratory: reports: No Symptoms reported Cardiac: reports: No Symptoms Reported GI: reports: See HPI : reports: No Symptoms Reported Musculoskeletal: reports: See HPI, Muscle Pain (anterior chest wall where he had chest compressions) Integumentary: reports: See HPI, Other (IV use) Neuro: reports: Headache Psychiatric: reports: Agitated, Anxious Patient History - Patient Medical History Hx Anemia: No Hx Asthma: No Hx Chronic Obstructive Pulmonary Disease (COPD): No Hx Cancer: No Hx Cardiac Disorders: No Hx Congestive Heart Failure: No Hx Hypertension: No Hx Hypercholesterolemia: No Hx Pacemaker: No HX Cerebrovascular Accident: No Hx Seizures: No Hx Dementia: No Hx Diabetes: No Hx Gastrointestinal Disorders: No Hx Liver Disease: No Hx Genitourinary Disorders: No Hx Sexually Transmitted Disorders: No Hx Renal Disease (ESRD): No Hx Thyroid Disease: No Hx Human Immunodeficiency Virus (HIV): No (Negative hx) Hx Hepatitis C: Yes (never treated) Hx Depression: Yes Hx Suicide Attempt: No Hx Bipolar Disorder: Yes (hx of meds) Hx Schizophrenia: No - Patient Surgical History Past Surgical History: No Hx Neurologic Surgery: No Hx Cataract Extraction: No Hx Cardiac Surgery: No Hx Lung Surgery: No Hx Breast Surgery: No Hx Breast Biopsy: No Hx Abdominal Surgery: No Hx Appendectomy: No Hx Cholecystectomy: No Hx Genitourinary Surgery: No Hx Section: No Hx Orthopedic Surgery: No Anesthesia Reaction: No - PPD History Date: 08/13/18 Results: 0 mm - Smoking Cessation Smoking history: Current every day smoker Have you smoked in the past 12 months: Yes Aproximately how many cigarettes per day: 10 Cigars Per Day: 0 Hx Chewing Tobacco Use: No Initiated information on smoking cessation: Yes 'Breaking Loose' booklet given: 06/03/19 - Substances abused Alcohol Substance route: Oral Frequency: Daily Amount used: 12 beers Age of first use: 11 Date of last use: 06/02/19 Heroin Substance route: Injection Frequency: Daily Amount used: 8-9 bags Age of first use: 19 Date of last use: 06/02/19 Cocaine Substance route: Injection Frequency: Daily Amount used: 1/2 gram day Age of first use: 14 Date of last use: 05/17/19 Marijuana/Hashish Substance route: Smoking Frequency: Daily Amount used: 1/2 gram Age of first use: 9 Date of last use: 05/17/19 Admission Physical Exam S - Vital Signs Vital Signs: Vital Signs - 24 hr 06/03/19 08:51 Temperature 97.3 F L Pulse Rate 89 Respiratory 20 Rate Blood Pressure 140/73 - Physical General Appearance: Yes: Mild Distress, Anxious HEENTM: Yes: EOMI, Hearing grossly Normal, Normocephalic, Normal Voice Respiratory: Yes: Lungs Clear, Normal Breath Sounds, No Respiratory Distress, No Accessory Muscle Use, Other (left anterior chest wall tenderness no ecchym osis) Neck: Yes: No masses,lesions,Nodules, Trachea in good position Cardiology: Yes: Regular Rhythm, Regular Rate, S1, S2, Tachycardia, Other (QTC 415 ms 05/18/19) Abdominal: Yes: Non Tender, Soft Musculoskeletal: Yes: Gait Steady Extremities: Yes: Normal Range of Motion, Non-Tender 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: Yes: Alert, Motor Strength 5/5 Integumentary: Yes: Track Posey (right antecubital c/d/i), Other (scar L UE from remote injury , scar LEFT FA 2/2 remote abscess) - Diagnostic (1) Alcohol dependence with uncomplicated withdrawal Current Visit: Yes Status: Chronic (2) Nicotine dependence Current Visit: Yes Status: Chronic Qualifiers: Nicotine product type: cigarettes (3) Opioid dependence with withdrawal Current Visit: Yes Status: Chronic Breathalyzer - Breathalyzer Breathalyzer: 0 Urine Drug Screen - Test Device Lot number: [id number] Expiration date: 12/18/20 - Control Is test valid?: Yes - Results Drug screen NEGATIVE: No Urine drug screen results: THC-Marijuana, FEN-Fentanyl, MOP-Opiates, BZO- Benzodiazepines Inpatient Rehab Admission - Rehab Decision to Admit Inpatient rehab admission?: No"
[2019-06-03] MEDS ORDERED: MELATONIN 5 MG TABLETS PO PRN (10:12)
[2019-06-03] MEDS ORDERED: MAGNESIUM HYDROX 2400MG/30ML ORAL SUSPENSION 30 ML CUP PO PRN (10:12)
[2019-06-03] MEDS ORDERED: ACETAMINOPHEN 325 MG TABLET (FP) PO PRN ×2 (10:12)
[2019-06-03] MEDS ORDERED: MAG HYDROX/AL HYDROX/SIMETH 30 ML UNIT-DOSE CUP PO PRN (10:12)
[2019-06-03] MEDS ORDERED: BISMUTH SUBSALICYLATE 262 MG/15 ML BTL PO PRN (10:12)
[2019-06-03] MEDS ORDERED: NICOTINE POLACRILEX 2 MG GUM BUC PRN (10:12)
[2019-06-03] MEDS ORDERED: PROCHLORPERAZINE MALEATE 5 MG TABLET PO PRN (10:12)
[2019-06-03] MEDS ORDERED: MAGNESIUM CITRATE 300 ML BOTTLE PO PRN (10:12)
[2019-06-03] MEDS ORDERED: MENTHOL/PHENOL 1 EACH UD MM PRN (10:12)
[2019-06-03] MEDS ORDERED: METHOCARBAMOL 500 MG TABLET PO PRN (10:12)
[2019-06-03] MEDS ORDERED: hydrOXYzine PAMOATE 25 MG CAPSULE (FP) PO PRN (10:12)
[2019-06-03] MEDS ORDERED: IBUPROFEN 400 MG TABLET (FP) PO PRN (10:12)
[2019-06-03] MEDS ORDERED: cloNIDine HCL 0.1 MG TABLET PO PRN (10:15)
[2019-06-03] MEDS ORDERED: diazePAM 5 MG TABLET PO PRN (10:15)
[2019-06-03] MEDS ORDERED: METHADONE HCL 10 MG TABLET (FOR DETOX USE ONLY) PO ONE (11:10)
[2019-06-03] MEDS ORDERED: diazePAM 5 MG TABLET PO ONE (11:10)
[2019-06-03] MEDS ORDERED: chlordiazePOXIDE HCL 10 MG CAPSULE PO PRN (11:24)
[2019-06-03] MEDS ORDERED: chlordiazePOXIDE HCL 25 MG CAPSULE PO ONE (11:24)
[2019-06-03] MEDS: chlordiazePOXIDE HCL 25 MG CAPSULE PO SCH ×2 (13:57→22:40)
[2019-06-03] MEDS ORDERED: diazePAM 5 MG TABLET PO SCH (14:00)
--- NOTE | 2019-06-03 14:48 | CONSULT ---
[facility] Psychiatric Consult - Data Date of interview: 06/03/19 Admission source: [facility] Identifying data: Patient is approached for psychiatric evaluation. Mr Gallardo declines. " I am tired. I cannot talk now." Nursing staff is made aware.
[2019-06-03] MEDS ORDERED: THIAMINE HCL 100 MG TABLET (FP) PO SCH (22:00)
[2019-06-04] MEDS: chlordiazePOXIDE HCL 25 MG CAPSULE PO SCH (06:45)
[2019-06-04] MEDS: chlordiazePOXIDE HCL 10 MG CAPSULE PO SCH ×2 (06:45→13:39)
[2019-06-04] MEDS ORDERED: PANTOPRAZOLE 20 MG TABLET (FP) PO SCH (10:00)
[2019-06-04] MEDS ORDERED: PRENATAL VITAMINS W/ FOLIC ACID TABLET (FP) PO SCH (10:00)
[2019-06-04] MEDS ORDERED: METHADONE HCL 5 MG TABLET (FOR DETOX USE ONLY) PO ONE (10:00)
[2019-06-04 13:13] VITALS: BP 111/60
--- NOTE | 2019-06-04 14:48 | PN ---
[facility] CIWA - CIWA Score Nausea/Vomitin Muscle Tremors: 2 Anxiety: 1-Mildly Anxious Agitation: 1-Slight > Activity Paroxysmal Sweats: 2 Orientation: 0-Oriented Tacttile Disturbances: 2-Mild Itch/Numbness/Burn Auditory Disturbances: 0-None Visual Disturbances: 0-None Headache: 0-None Present CIWA-Ar Total Score: 11 S COWS - Scale Resting Pulse: 0= PA 80 or Below Sweatin=Flushed/Facial Moisture Restless Observation: 1= Difficult to Sit Still Pupil Size: 1= Pupils >than Normal Bone or Joint Aches: 2= Severe Diffuse Aches Runny Nose/ Eye Tearin= None GI Upset > 30mins: 3= Vomiting/Diarrhea Tremor Observation of Outstretched Hands: 1= Tremor [place], Not Seen Yawning Observation: 0= None Anxiety or Irritability: 1=Feels Anxious/Irritable Goose Flesh Skin: 0=Smooth Skin COWS Score: 11 [facility] Progress Note (SOAP) Subjective: interrupted sleep , sweats, nausea, vomiting Objective: 06/04/19 14:46 Vital Signs Temperature 96.4 F L 06/04/19 13:12 Pulse Rate 64 06/04/19 13:12 Respiratory Rate 18 06/04/19 13:12 Blood Pressure 111/60 06/04/19 13:12 O2 Sat by Pulse Oximetry (%) pt aox3 in nad ambulating pending cbc/cmp 06/04/19 14:47 Assessment: 06/04/19 14:47 withdrawal sx's Plan: cont. detox increase fluids
[2019-06-04 17:51] VITALS: PULSE 77; TEMP 97.6
--- NOTE | 2019-06-04 18:24 | DS ---
[facility] Detox Discharge Summary Admission Date: 06/03/19 Discharge Date: 06/04/19 - History Pertinent Past History: Pt was admitted yesterday for alcohol and opiate detox. Pt states the dose of methadone is not enough- feeling very anxious. Offered to give pt higher dose of methadone but pt states he had already called his friend to pick him up. d/w pt to consider long term care social worker MAT- pt had been getting Suboxone in the past. Pt states he intends to restart Suboxone with provider. Pt will stay with his family. Pt has narcan kit Pt has PCP- Dr. Han. - Physical Exam Results Vital Signs: Vital Signs Temperature 97.6 F 06/04/19 17:51 Pulse Rate 77 06/04/19 17:51 Respiratory Rate 18 06/04/19 17:51 Blood Pressure 111/60 06/04/19 17:51 O2 Sat by Pulse Oximetry (%) - Medication Discharge Medications: Ambulatory Orders Omeprazole 20 mg PO DAILY 08/24/17 Gabapentin 300 mg PO TID 05/18/19 Mirtazapine [Remeron -] 45 mg PO HS 05/18/19 clonazePAM [Klonopin -] 0.5 mg PO TID 05/18/19 - AMA Did Patient Leave Against Medical Advice: Yes
[2019-06-05] MEDS ORDERED: chlordiazePOXIDE HCL 10 MG CAPSULE PO ONE (05:00)
[2019-06-05] MEDS ORDERED: diazePAM 5 MG TABLET PO SCH (06:00)
[2019-06-05] MEDS ORDERED: METHADONE HCL 10 MG TABLET (FOR DETOX USE ONLY) PO ONE (10:00)
[2019-06-06] MEDS ORDERED: METHADONE HCL 5 MG TABLET (FOR DETOX USE ONLY) PO ONE (06:00)
[2019-06-06] MEDS ORDERED: diazePAM 5 MG TABLET PO ONE (06:00)
== END 2019-06-04 18:57 | disposition left against medical advice (07) | DRG 770 ==
LOC: YASAS 08:41 → Y3N 10:53
PROVIDERS: ADMIT Allergy & Immunology; ATTEND Allergy & Immunology
PROC: HZ2ZZZZ Detoxification Services for Substance Abuse Treatment (ICD-10-PCS; principal; 2019-06-03)
DX: F11.23 Opioid dependence with withdrawal (principal); F10.230 Alcohol dependence with withdrawal, uncomplicated; F12.10 Cannabis abuse, uncomplicated; F17.210 Nicotine dependence, cigarettes, uncomplicated; F31.9 Bipolar disorder, unspecified; B18.2 Chronic viral hepatitis C

== ENCOUNTER 2021-01-24 07:22 | Inpatient (IN) | payer OTHER ==
[2021-01-24 08:43] VITALS: BMI 24.3
[2021-01-24] MEDS ORDERED: MENTHOL/PHENOL 1 EACH UD MM PRN (09:09)
[2021-01-24] MEDS ORDERED: BISMUTH SUBSALICYLATE 524 MG/30 ML PO PRN (09:09)
[2021-01-24] MEDS ORDERED: clonazePAM 0.5 MG ODT TABLETS SL PRN (09:09)
[2021-01-24] MEDS ORDERED: METHOCARBAMOL 500 MG TABLET PO PRN (09:09)
[2021-01-24] MEDS ORDERED: ACETAMINOPHEN 325 MG TABLET (FP) PO PRN ×2 (09:09)
[2021-01-24] MEDS ORDERED: MAGNESIUM CITRATE 300 ML BOTTLE PO PRN (09:09)
[2021-01-24] MEDS ORDERED: cloNIDine HCL 0.1 MG TABLET PO PRN (09:09)
[2021-01-24] MEDS ORDERED: NICOTINE 10 MG CARTRIDGE (INHALER) IH PRN (09:09)
[2021-01-24] MEDS ORDERED: MAG HYDROX/AL HYDROX/SIMETH 30 ML UNIT-DOSE CUP PO PRN (09:09)
[2021-01-24] MEDS ORDERED: IBUPROFEN 400 MG TABLET (FP) PO PRN (09:09)
[2021-01-24] MEDS ORDERED: ONDANSETRON *ODT* 4 MG TABLET SL PRN (09:09)
[2021-01-24] MEDS ORDERED: MAGNESIUM HYDROX 2400MG/30ML ORAL SUSPENSION 30 ML CUP PO PRN (09:09)
[2021-01-24] MEDS ORDERED: hydrOXYzine PAMOATE 25 MG CAPSULE (FP) PO SCH (10:00)
[2021-01-24] MEDS ORDERED: methaDONE HCL 10 MG TABLET (FOR DETOX USE ONLY) PO ONE (10:00)
[2021-01-24] MEDS ORDERED: BACITRACIN 15 GM TUBE TOPICAL OINTMENT TP SCH (10:00)
[2021-01-24] MEDS ORDERED: methaDONE HCL 10 MG TABLET (FOR DETOX USE ONLY) ONE (12:05)
[2021-01-24] MEDS ORDERED: diazePAM 5 MG TABLET ONE (12:05)
[2021-01-24] MEDS: PRENATAL VITAMINS W/ FOLIC ACID TABLET (FP) PO SCH (12:14)
[2021-01-24] MEDS: NICOTINE 21 MG/24 HOURS TOPICAL PATCH TD SCH (12:14)
[2021-01-24] MEDS: diazePAM 5 MG TABLET PO SCH ×3 (12:14→22:03)
[2021-01-24] MEDS: BACITRACIN 0.9 GM PACKET TP SCH ×2 (13:38→21:45)
[2021-01-24 19:33] LABS: HIV INTERPRETATION NEGATIVE (NEGATIVE)
[2021-01-24] MEDS: THIAMINE HCL 100 MG TABLET (FP) PO SCH (21:28)
[2021-01-24] MEDS: MIRTAZAPINE 15 MG TABLET (FP) PO SCH (21:28)
[2021-01-24] MEDS: GABAPENTIN 400 MG CAPSULE PO SCH (21:28)
[2021-01-24] MEDS: hydrOXYzine PAMOATE 25 MG CAPSULE (FP) PO PRN (21:29)
[2021-01-24] MEDS ORDERED: MELATONIN 5 MG TABLETS PO SCH (22:00)
[2021-01-25] MEDS: diazePAM 5 MG TABLET PO SCH ×4 (05:15→22:18)
[2021-01-25] MEDS: GABAPENTIN 400 MG CAPSULE PO SCH ×3 (05:16→22:06)
[2021-01-25] MEDS ORDERED: methaDONE HCL 10 MG TABLET (FOR DETOX USE ONLY) ONE (09:46)
[2021-01-25] MEDS: PRENATAL VITAMINS W/ FOLIC ACID TABLET (FP) PO SCH (10:31)
[2021-01-25] MEDS: NICOTINE 21 MG/24 HOURS TOPICAL PATCH TD SCH (10:31)
[2021-01-25] MEDS: BACITRACIN 0.9 GM PACKET TP SCH ×2 (10:31→22:06)
[2021-01-25] MEDS: ARIPiprazole 5 MG TABLET PO SCH (10:31)
[2021-01-25 10:34] LABS: ALBUMIN 3.2 g/dl (3.4-5.0); BLOOD UREA NITROGEN 9.9 mg/dL (7-18)
[2021-01-25 10:36] LABS: HEMATOCRIT 29.3 % (35.4-49); HEMOGLOBIN 9.4 GM/dL (11.7-16.9); MCH 25.5 pg (25.7-33.7); MCHC 32.1 g/dl (32.0-35.9); MEAN CELL VOLUME 79.6 fl (80-96); PLATELET COUNT 933 10^3/uL (134-434); RBC 3.68 M/mm3 (4.00-5.60); WHITE BLOOD COUNT 11.2 K/mm3 (4.0-10.0)
[2021-01-25 10:38] LABS: CREATININE 0.6 mg/dL (0.55-1.3)
[2021-01-25 10:39] LABS: BILIRUBIN,TOTAL 0.3 mg/dL (0.2-1); TOT PROT 6.9 g/dl (6.4-8.2)
[2021-01-25] MEDS: THIAMINE HCL 100 MG TABLET (FP) PO SCH (22:06)
[2021-01-25] MEDS: MIRTAZAPINE 15 MG TABLET (FP) PO SCH (22:06)
[2021-01-26] MEDS: GABAPENTIN 400 MG CAPSULE PO SCH ×3 (05:17→22:02)
[2021-01-26] MEDS: diazePAM 5 MG TABLET PO SCH ×3 (05:17→22:01)
[2021-01-26] MEDS ORDERED: methaDONE HCL 10 MG TABLET (FOR DETOX USE ONLY) PO ONE (10:00)
[2021-01-26] MEDS: PRENATAL VITAMINS W/ FOLIC ACID TABLET (FP) PO SCH (10:23)
[2021-01-26] MEDS: BACITRACIN 0.9 GM PACKET TP SCH ×2 (10:23→22:01)
[2021-01-26] MEDS: ARIPiprazole 5 MG TABLET PO SCH (10:23)
[2021-01-26] MEDS: NICOTINE 21 MG/24 HOURS TOPICAL PATCH TD SCH (10:24)
[2021-01-26] MEDS: diazePAM 5 MG TABLET PO PRN (10:27)
[2021-01-26 10:44] LABS: HEMATOCRIT 30.2 % (35.4-49); HEMOGLOBIN 9.6 GM/dL (11.7-16.9); MCH 25.2 pg (25.7-33.7); MCHC 31.7 g/dl (32.0-35.9); MEAN CELL VOLUME 79.6 fl (80-96); PLATELET COUNT 922 10^3/uL (134-434); RBC 3.79 M/mm3 (4.00-5.60); RDW 17.1 % (11.9-15.9); WHITE BLOOD COUNT 11.6 K/mm3 (4.0-10.0)
[2021-01-26] MEDS: ASPIRIN COATED 81 MG TABLET.EC PO SCH (11:18)
[2021-01-26] MEDS: FERROUS SO4 325 MG TABLET (FP) PO SCH (14:50)
[2021-01-26] MEDS: THIAMINE HCL 100 MG TABLET (FP) PO SCH (22:02)
[2021-01-26] MEDS: MIRTAZAPINE 15 MG TABLET (FP) PO SCH (22:02)
[2021-01-26] MEDS: hydrOXYzine PAMOATE 25 MG CAPSULE (FP) PO PRN (22:03)
[2021-01-26] MEDS: NICOTINE POLACRILEX 2 MG GUM BUC PRN (22:22)
[2021-01-27] MEDS: GABAPENTIN 400 MG CAPSULE PO SCH ×2 (05:28→14:00)
[2021-01-27] MEDS ORDERED: diazePAM 5 MG TABLET PO SCH (06:00)
[2021-01-27] MEDS ORDERED: methaDONE HCL 10 MG TABLET (FOR DETOX USE ONLY) ONE (08:51)
[2021-01-27] MEDS: diazePAM 5 MG TABLET PO PRN (09:02)
[2021-01-27] MEDS: NICOTINE 21 MG/24 HOURS TOPICAL PATCH TD SCH (10:30)
[2021-01-27] MEDS: BACITRACIN 0.9 GM PACKET TP SCH (10:32)
[2021-01-27] MEDS: PRENATAL VITAMINS W/ FOLIC ACID TABLET (FP) PO SCH (10:32)
[2021-01-27] MEDS: ASPIRIN COATED 81 MG TABLET.EC PO SCH (10:33)
[2021-01-27] MEDS: ARIPiprazole 5 MG TABLET PO SCH (10:33)
[2021-01-27] MEDS: NICOTINE POLACRILEX 2 MG GUM BUC PRN (11:16)
[2021-01-27] MEDS: FERROUS SO4 325 MG TABLET (FP) PO SCH (12:24)
[2021-01-27 14:32] VITALS: BP 109/56; PULSE 97; TEMP 97.1
[2021-01-28] MEDS ORDERED: diazePAM 5 MG TABLET PO ONE (06:00)
[2021-01-28] MEDS ORDERED: methaDONE HCL 10 MG TABLET (FOR DETOX USE ONLY) PO ONE (10:00)
== END 2021-01-27 15:25 | disposition other institution (70) | DRG 773 ==
LOC: YASAS 07:22 → Y6N 10:29 → Y3N 21:46
PROVIDERS: ADMIT Allergy & Immunology; ATTEND Allergy & Immunology
PROC: HZ2ZZZZ Detoxification Services for Substance Abuse Treatment (ICD-10-PCS; principal; 2021-01-24)
DX: F11.23 Opioid dependence with withdrawal (principal); F10.230 Alcohol dependence with withdrawal, uncomplicated; F14.20 Cocaine dependence, uncomplicated; F12.20 Cannabis dependence, uncomplicated; F17.210 Nicotine dependence, cigarettes, uncomplicated; F19.280 Other psychoactive substance dependence with psychoactive substance-induced anxiety disorder; F19.282 Other psychoactive substance dependence with psychoactive substance-induced sleep disorder; F31.9 Bipolar disorder, unspecified; D64.9 Anemia, unspecified; K21.9 Gastro-esophageal reflux disease without esophagitis; B18.2 Chronic viral hepatitis C; Z62.810 Personal history of physical and sexual abuse in childhood; S50.812A Abrasion of left forearm, initial encounter; X58.XXXA Exposure to other specified factors, initial encounter; Y92.9 Unspecified place or not applicable; Z90.81 Acquired absence of spleen
CPT/HCPCS: 36415; 80053; 85027; 86780; 87389; 93005; 93010; C9803; U0003; U0005

== ENCOUNTER 2021-07-13 04:08 | Inpatient (IN) | payer OTHER ==
[2021-07-13 05:08] VITALS: BMI 22.3
[2021-07-13] MEDS ORDERED: MAGNESIUM CITRATE 300 ML BOTTLE PO PRN (05:55)
[2021-07-13] MEDS ORDERED: MENTHOL/PHENOL 1 EACH UD MM PRN (05:55)
[2021-07-13] MEDS ORDERED: BISMUTH SUBSALICYLATE 524 MG/30 ML PO PRN (05:55)
[2021-07-13] MEDS ORDERED: LOPERAMIDE HCL 2 MG CAPSULE PO PRN (05:55)
[2021-07-13] MEDS ORDERED: MAGNESIUM HYDROX 2400MG/30ML ORAL SUSPENSION 30 ML CUP PO PRN (05:55)
[2021-07-13] MEDS ORDERED: cloNIDine HCL 0.1 MG TABLET PO PRN (05:55)
[2021-07-13] MEDS ORDERED: ACETAMINOPHEN 325 MG TABLET (FP) PO PRN ×2 (05:55)
[2021-07-13] MEDS ORDERED: ONDANSETRON *ODT* 4 MG TABLET SL PRN (05:55)
[2021-07-13] MEDS ORDERED: MAG HYDROX/AL HYDROX/SIMETH 30 ML UNIT-DOSE CUP PO PRN (05:55)
[2021-07-13] MEDS ORDERED: IBUPROFEN 400 MG TABLET (FP) PO PRN (05:55)
[2021-07-13] MEDS ORDERED: methaDONE HCL 10 MG TABLET (FOR DETOX USE ONLY) PO ONE (05:55)
[2021-07-13] MEDS ORDERED: NICOTINE POLACRILEX 2 MG GUM BUC PRN (05:55)
[2021-07-13] MEDS ORDERED: chlordiazePOXIDE HCL 25 MG CAPSULE PO PRN (05:55)
[2021-07-13] MEDS: chlordiazePOXIDE HCL 25 MG CAPSULE PO SCH ×4 (06:05→22:24)
[2021-07-13] MEDS ORDERED: BACITRACIN 15 GM TUBE TOPICAL OINTMENT TP SCH (10:00)
[2021-07-13] MEDS: PRENATAL VITAMINS W/ FOLIC ACID TABLET (FP) PO SCH (11:00)
[2021-07-13] MEDS: METHOCARBAMOL 500 MG TABLET PO PRN ×2 (11:01→19:17)
[2021-07-13] MEDS: NICOTINE 14 MG/24 HOURS TOPICAL PATCH TD SCH (11:17)
[2021-07-13] MEDS: BACITRACIN 0.9 GM PACKET TP SCH ×2 (12:32→22:46)
[2021-07-13 12:50] LABS: HEMATOCRIT 39.1 % (35.4-49); HEMOGLOBIN 12.9 GM/dL (11.7-16.9); MCH 30.1 pg (25.7-33.7); MCHC 32.9 g/dl (32.0-35.9); MEAN CELL VOLUME 91.5 fl (80-96); MEAN PLT VOLUME 9.1 fl (7.5-11.1); PLATELET COUNT 556 10^3/uL (134-434); RBC 4.27 M/mm3 (4.00-5.60); RDW 14.2 % (11.9-15.9); WHITE BLOOD COUNT 9.7 K/mm3 (4.0-10.0)
[2021-07-13 12:58] LABS: CALCIUM 9.7 mg/dL (8.5-10.1)
[2021-07-13 12:59] LABS: ALBUMIN 3.8 g/dl (3.4-5.0)
[2021-07-13 13:02] LABS: CREATININE 0.7 mg/dL (0.55-1.3)
[2021-07-13 13:03] LABS: BILIRUBIN,TOTAL 0.4 mg/dL (0.2-1)
[2021-07-13 13:33] LABS: HIV INTERPRETATION NEGATIVE (NEGATIVE)
[2021-07-13] MEDS: amLODIPine BESYLATE 5 MG TABLET (FP) PO SCH (15:17)
[2021-07-13] MEDS ORDERED: MELATONIN 5 MG TABLETS PO SCH (22:00)
[2021-07-13] MEDS: THIAMINE HCL 100 MG TABLET (FP) PO SCH (22:24)
[2021-07-13] MEDS: MIRTAZAPINE 15 MG TABLET (FP) PO SCH (22:24)
[2021-07-14] MEDS: chlordiazePOXIDE HCL 25 MG CAPSULE PO SCH ×4 (05:45→22:46)
[2021-07-14] MEDS ORDERED: methaDONE HCL 10 MG TABLET (FOR DETOX USE ONLY) ONE (09:23)
[2021-07-14] MEDS: BACITRACIN 0.9 GM PACKET TP SCH ×2 (10:43→22:46)
[2021-07-14] MEDS: METHOCARBAMOL 500 MG TABLET PO PRN ×3 (10:43→22:47)
[2021-07-14] MEDS: amLODIPine BESYLATE 5 MG TABLET (FP) PO SCH (10:43)
[2021-07-14] MEDS: ARIPiprazole 5 MG TABLET PO SCH (10:43)
[2021-07-14] MEDS: PRENATAL VITAMINS W/ FOLIC ACID TABLET (FP) PO SCH (10:43)
[2021-07-14] MEDS: NICOTINE 14 MG/24 HOURS TOPICAL PATCH TD SCH (10:45)
[2021-07-14] MEDS ORDERED: LIDOCAINE PATCH REMOVAL MC SCH (22:00)
[2021-07-14] MEDS: THIAMINE HCL 100 MG TABLET (FP) PO SCH (22:46)
[2021-07-14] MEDS: MIRTAZAPINE 15 MG TABLET (FP) PO SCH (22:46)
[2021-07-15] MEDS ORDERED: chlordiazePOXIDE HCL 10 MG CAPSULE PO PRN
[2021-07-15] MEDS: chlordiazePOXIDE HCL 10 MG CAPSULE PO SCH ×2 (05:23→10:37)
[2021-07-15] MEDS ORDERED: ASPIRIN 81 MG CHEWABLE TABLETS PO SCH (10:00)
[2021-07-15] MEDS ORDERED: LIDOCAINE 5% TOPICAL PATCH TP SCH (10:00)
[2021-07-15] MEDS ORDERED: methaDONE HCL 10 MG TABLET (FOR DETOX USE ONLY) PO ONE (10:00)
[2021-07-15] MEDS: ARIPiprazole 5 MG TABLET PO SCH (10:36)
[2021-07-15] MEDS: PRENATAL VITAMINS W/ FOLIC ACID TABLET (FP) PO SCH (10:36)
[2021-07-15] MEDS: amLODIPine BESYLATE 5 MG TABLET (FP) PO SCH (10:36)
[2021-07-15] MEDS: BACITRACIN 0.9 GM PACKET TP SCH (10:36)
[2021-07-15] MEDS: NICOTINE 14 MG/24 HOURS TOPICAL PATCH TD SCH (10:38)
[2021-07-15 14:55] VITALS: BP 131/65; PULSE 71; TEMP 98.1
[2021-07-15 16:09] LABS: SARS-CoV-2 NAA Not Detected (Not Detected)
[2021-07-16] MEDS ORDERED: chlordiazePOXIDE HCL 10 MG CAPSULE PO SCH (05:00)
[2021-07-17] MEDS ORDERED: chlordiazePOXIDE HCL 10 MG CAPSULE PO ONE (05:00)
[2021-07-17] MEDS ORDERED: methaDONE HCL 10 MG TABLET (FOR DETOX USE ONLY) PO ONE (10:00)
== END 2021-07-15 16:35 | disposition left against medical advice (07) | DRG 770 ==
LOC: YASAS 04:08 → Y6N 06:21
PROVIDERS: ADMIT Allergy & Immunology; ATTEND Allergy & Immunology
PROC: HZ2ZZZZ Detoxification Services for Substance Abuse Treatment (ICD-10-PCS; principal; 2021-07-13)
DX: F11.23 Opioid dependence with withdrawal (principal); F10.230 Alcohol dependence with withdrawal, uncomplicated; F14.20 Cocaine dependence, uncomplicated; F12.20 Cannabis dependence, uncomplicated; F16.10 Hallucinogen abuse, uncomplicated; F17.210 Nicotine dependence, cigarettes, uncomplicated; F31.9 Bipolar disorder, unspecified; F41.1 Generalized anxiety disorder; K21.9 Gastro-esophageal reflux disease without esophagitis; Z62.810 Personal history of physical and sexual abuse in childhood; Z86.19 Personal history of other infectious and parasitic diseases
CPT/HCPCS: 36415; 80053; 85027; 86780; 87389; 87811; 93005; 93010; C9803; U0003; U0005

== ENCOUNTER 2022-08-06 16:40 | Inpatient (IN) | payer OTHER ==
[2022-08-06 19:44] VITALS: BMI 19.9
[2022-08-06] MEDS ORDERED: ACETAMINOPHEN 325 MG TABLET (FP) PO PRN (19:58)
[2022-08-06] MEDS ORDERED: MAGNESIUM HYDROX 2400MG/30ML ORAL SUSPENSION 30 ML CUP PO PRN (19:58)
[2022-08-06] MEDS ORDERED: NICOTINE POLACRILEX 2 MG GUM BUC PRN (19:58)
[2022-08-06] MEDS ORDERED: DICYCLOMINE HCL 10 MG CAPSULE PO PRN (19:58)
[2022-08-06] MEDS ORDERED: BENZONATATE 200 MG CAPSULE PO PRN (19:58)
[2022-08-06] MEDS ORDERED: IBUPROFEN 400 MG TABLET (FP) PO PRN (19:58)
[2022-08-06] MEDS ORDERED: MAG HYDROX/AL HYDROX/SIMETH 30 ML UNIT-DOSE CUP PO PRN (19:58)
[2022-08-06] MEDS ORDERED: BISMUTH SUBSALICYLATE 524 MG/30 ML PO PRN (19:58)
[2022-08-06] MEDS ORDERED: ONDANSETRON *ODT* 4 MG TABLET SL PRN (19:58)
[2022-08-06] MEDS ORDERED: NALOXONE HCL 0.4 MG/ML VIAL IM PRN (19:58)
[2022-08-06] MEDS ORDERED: cloNIDine HCL 0.1 MG TABLET PO PRN (19:58)
[2022-08-06] MEDS ORDERED: IBUPROFEN 600 MG TABLET (FP) PO PRN (19:58)
[2022-08-06] MEDS ORDERED: guaiFENesin 600 MG TABLET.ER (FP) PO PRN (19:58)
[2022-08-06] MEDS ORDERED: methaDONE HCL 10 MG TABLET (FOR DETOX USE ONLY) PO ONE (19:58)
[2022-08-06] MEDS ORDERED: chlordiazePOXIDE HCL 25 MG CAPSULE PO PRN (19:58)
[2022-08-06] MEDS ORDERED: BENZOCAINE/MENTHOL (CHLORASEPTIC ) LOZENGE MM PRN (19:58)
[2022-08-06] MEDS ORDERED: POLYETHYLENE GLYCOL (HEALTHYLAX) 3350 17 GM PACKET PO PRN (19:58)
[2022-08-06] MEDS ORDERED: LOPERAMIDE HCL 2 MG CAPSULE PO PRN (19:58)
[2022-08-06] MEDS ORDERED: NALOXONE HCL (KLOXXADO) 8 MG SPRAY NS PRN (19:58)
[2022-08-06] MEDS ORDERED: methaDONE HCL 10 MG TABLET (FOR DETOX USE ONLY) ONE (21:07)
[2022-08-06] MEDS: MELATONIN 5 MG TABLETS PO SCH (22:24)
[2022-08-06] MEDS: THIAMINE HCL 100 MG TABLET (FP) PO SCH (22:24)
[2022-08-06] MEDS: chlordiazePOXIDE HCL 25 MG CAPSULE PO SCH (22:25)
[2022-08-07] MEDS: chlordiazePOXIDE HCL 25 MG CAPSULE PO SCH ×4 (05:30→22:12)
[2022-08-07] MEDS: PRENATAL VITAMINS W/ FOLIC ACID TABLET (FP) PO SCH (10:31)
[2022-08-07] MEDS: NICOTINE 21 MG/24 HOURS TOPICAL PATCH TD SCH (10:35)
[2022-08-07 12:04] LABS: HEMOGLOBIN 13.1 GM/dL (11.7-16.9); MCH 28.9 pg (25.7-33.7); MCHC 33.6 g/dl (32.0-35.9); MEAN CELL VOLUME 86.1 fl (80-96); PLATELET COUNT 638 10^3/uL (134-434); RBC 4.53 M/mm3 (4.00-5.60); RDW 15.4 % (11.9-15.9); WHITE BLOOD COUNT 11.4 K/mm3 (4.0-10.0)
[2022-08-07 12:27] LABS: CALCIUM 9.5 mg/dL (8.5-10.1)
[2022-08-07 12:28] LABS: ALBUMIN 3.2 g/dl (3.4-5.0); BLOOD UREA NITROGEN 8.4 mg/dL (7-18)
[2022-08-07 12:30] LABS: CREATININE 0.5 mg/dL (0.55-1.3)
[2022-08-07 12:31] LABS: TOT PROT 6.4 g/dl (6.4-8.2)
[2022-08-07 12:32] LABS: BILIRUBIN,TOTAL 0.3 mg/dL (0.2-1)
[2022-08-07] MEDS: THIAMINE HCL 100 MG TABLET (FP) PO SCH (22:12)
[2022-08-07] MEDS: MELATONIN 5 MG TABLETS PO SCH (22:12)
[2022-08-08] MEDS: chlordiazePOXIDE HCL 25 MG CAPSULE PO SCH ×4 (05:41→22:11)
[2022-08-08] MEDS ORDERED: methaDONE HCL 10 MG TABLET (FOR DETOX USE ONLY) PO ONE (10:00)
[2022-08-08] MEDS: PRENATAL VITAMINS W/ FOLIC ACID TABLET (FP) PO SCH (10:56)
[2022-08-08] MEDS: NICOTINE 21 MG/24 HOURS TOPICAL PATCH TD SCH (10:57)
[2022-08-08] MEDS: MELATONIN 5 MG TABLETS PO SCH (22:11)
[2022-08-08] MEDS: THIAMINE HCL 100 MG TABLET (FP) PO SCH (22:11)
[2022-08-09] MEDS ORDERED: chlordiazePOXIDE HCL 10 MG CAPSULE PO PRN
[2022-08-09] MEDS: chlordiazePOXIDE HCL 10 MG CAPSULE PO SCH ×3 (05:44→20:38)
[2022-08-09] MEDS: NICOTINE 21 MG/24 HOURS TOPICAL PATCH TD SCH (10:23)
[2022-08-09] MEDS: PRENATAL VITAMINS W/ FOLIC ACID TABLET (FP) PO SCH (10:23)
[2022-08-09 13:32] VITALS: BP 123/91; PULSE 108; RESP 17; TEMP 97.5
[2022-08-10] MEDS: MELATONIN 5 MG TABLETS PO SCH (00:08)
[2022-08-10] MEDS: THIAMINE HCL 100 MG TABLET (FP) PO SCH (00:09)
[2022-08-10] MEDS: chlordiazePOXIDE HCL 10 MG CAPSULE PO SCH (00:09)
[2022-08-10] MEDS ORDERED: chlordiazePOXIDE HCL 10 MG CAPSULE PO SCH (05:00)
[2022-08-10] MEDS ORDERED: methaDONE HCL 10 MG TABLET (FOR DETOX USE ONLY) PO ONE (10:00)
[2022-08-11] MEDS ORDERED: chlordiazePOXIDE HCL 10 MG CAPSULE PO ONE (05:00)
== END 2022-08-10 02:31 | disposition short-term general hospital (02) | DRG 773 ==
LOC: YASAS 16:40 → Y6N 21:58
PROVIDERS: ADMIT Allergy & Immunology; ATTEND Allergy & Immunology
PROC: HZ2ZZZZ Detoxification Services for Substance Abuse Treatment (ICD-10-PCS; principal; 2022-08-06)
DX: F11.23 Opioid dependence with withdrawal (principal); F10.230 Alcohol dependence with withdrawal, uncomplicated; F14.20 Cocaine dependence, uncomplicated; F17.210 Nicotine dependence, cigarettes, uncomplicated; F19.24 Other psychoactive substance dependence with psychoactive substance-induced mood disorder; F31.9 Bipolar disorder, unspecified; F41.9 Anxiety disorder, unspecified; Z86.19 Personal history of other infectious and parasitic diseases
CPT/HCPCS: 36415; 80053; 85027; 86780; 93005; 93010; C9803-CS; Q0162; U0003; U0005

== ENCOUNTER 2022-08-09 13:47 | Emergency (ER) | payer OTHER ==
[2022-08-09 14:02] VITALS: BP 134/83; PULSE 109; RESP 18; TEMP 98.1; BMI 19.9
[2022-08-09] MEDS ORDERED: VANCOMYCIN 1 GM in D5W (PRE-DOCKED) 1,000 MG/250 ML IVPB ONE (15:02)
[2022-08-09] MEDS ORDERED: VANCOMYCIN HCL 1,500 MG in DEXTROSE 5%-WATER - 500 ML IVPB ONE (15:10)
[2022-08-09] MEDS ORDERED: VANCOMYCIN PREMIX 1.5 GM 1,500 MG/300 ML BAG IVPB ONE (15:45)
[2022-08-09] MEDS ORDERED: ACETAMINOPHEN 1000 MG/100 ML BAG IVPB ONE (15:49)
[2022-08-09] MEDS ORDERED: ACETAMINOPHEN INJECTION 100 ML IVPB ONE (16:06)
[2022-08-09 16:36] LABS: BASO % 1.3 % (0-2.0); EOS % 0.5 % (0-4.5); HEMATOCRIT 48.7 % (35.4-49); LYMPH % 23.8 % (8-40); MCH 28.3 pg (25.7-33.7); MCHC 32.9 g/dl (32.0-35.9); MEAN PLT VOLUME 8.5 fl (7.5-11.1); MONO % 12.9 % (3.8-10.2); NEUT % 61.5 % (42.8-82.8); PLATELET COUNT 739 10^3/uL (134-434); RBC 5.66 M/mm3 (4.00-5.60); RDW 15.8 % (11.9-15.9); WHITE BLOOD COUNT 15.7 K/mm3 (4.0-10.0)
[2022-08-09 16:47] LABS: CHLORIDE 103 mmol/L (98-107); SODIUM 135 mmol/L (136-145)
[2022-08-09 16:49] LABS: BLOOD UREA NITROGEN 9.6 mg/dL (7-18)
[2022-08-09 16:50] LABS: CO2 29 mmol/L (21-32); GLUCOSE,RANDOM 84 mg/dL (74-106); LIPASE 191 U/L (73-393)
[2022-08-09 16:52] LABS: CREATININE 0.8 mg/dL (0.55-1.3)
[2022-08-09 16:54] LABS: BILIRUBIN,TOTAL 0.4 mg/dL (0.2-1)
[2022-08-09 16:55] LABS: ALBUMIN 3.8 g/dl (3.4-5.0); ALK PHOS 159 U/L (45-117); ANION GAP 3 MMOL/L (8-16); SGOT/AST 89 U/L (15-37); SGPT/ALT 60 U/L (13-61); TOT PROT 8.5 g/dl (6.4-8.2)
== END 2022-08-09 17:41 | disposition left against medical advice (07) ==
LOC: JER 13:47
PROC: 0H9FXZZ Drainage of Right Hand Skin, External Approach (ICD-10-PCS; principal; 2022-08-09)
PROC: 3E03329 Introduction of Other Anti-infective into Peripheral Vein, Percutaneous Approach (ICD-10-PCS; 2022-08-09)
PROC: 3E033NZ Introduction of Analgesics, Hypnotics, Sedatives into Peripheral Vein, Percutaneous Approach (ICD-10-PCS; 2022-08-09)
DX: L02.511 Cutaneous abscess of right hand (principal); Z20.822 Contact with and (suspected) exposure to COVID-19
CPT/HCPCS: 36415; 73130-TC-RT-FY; 80053; 83690; 85025; 87070; 87186; 87205; 99284-25; C9803-CS; U0003; U0005

== ENCOUNTER 2023-03-06 09:19 | Inpatient (IN) | payer OTHER ==
[2023-03-06 09:53] VITALS: BMI 23.1
[2023-03-06] MEDS ORDERED: NALOXONE HCL (KLOXXADO) 8 MG SPRAY NS PRN (11:21)
[2023-03-06] MEDS ORDERED: guaiFENesin 600 MG TABLET.ER (FP) PO PRN (11:21)
[2023-03-06] MEDS ORDERED: BENZONATATE 200 MG CAPSULE PO PRN (11:21)
[2023-03-06] MEDS ORDERED: POLYETHYLENE GLYCOL (HEALTHYLAX) 3350 17 GM PACKET PO PRN (11:21)
[2023-03-06] MEDS ORDERED: IBUPROFEN 400 MG TABLET (FP) PO PRN (11:21)
[2023-03-06] MEDS ORDERED: MAGNESIUM HYDROX 2400MG/30ML ORAL SUSPENSION 30 ML CUP PO PRN (11:21)
[2023-03-06] MEDS ORDERED: LOPERAMIDE HCL 2 MG CAPSULE PO PRN (11:21)
[2023-03-06] MEDS ORDERED: ONDANSETRON *ODT* 4 MG TABLET SL PRN (11:21)
[2023-03-06] MEDS ORDERED: METHOCARBAMOL 500 MG TABLET PO PRN (11:21)
[2023-03-06] MEDS ORDERED: MAG HYDROX/AL HYDROX/SIMETH 30 ML UNIT-DOSE CUP PO PRN (11:21)
[2023-03-06] MEDS ORDERED: hydrOXYzine PAMOATE 25 MG CAPSULE (FP) PO PRN (11:21)
[2023-03-06] MEDS ORDERED: ACETAMINOPHEN 325 MG TABLET (FP) PO PRN (11:21)
[2023-03-06] MEDS ORDERED: BENZOCAINE/MENTHOL (CHLORASEPTIC ) LOZENGE MM PRN (11:21)
[2023-03-06] MEDS ORDERED: NALOXONE HCL 0.4 MG/ML VIAL IM PRN (11:21)
[2023-03-06] MEDS ORDERED: BISMUTH SUBSALICYLATE 262 MG/15 ML BTL PO PRN (11:21)
[2023-03-06] MEDS ORDERED: IBUPROFEN 600 MG TABLET (FP) PO PRN (11:21)
[2023-03-06] MEDS ORDERED: NICOTINE POLACRILEX 2 MG GUM BUC PRN (11:21)
[2023-03-06] MEDS ORDERED: cloNIDine HCL 0.1 MG TABLET PO PRN (11:25)
[2023-03-06] MEDS ORDERED: methaDONE HCL 10 MG TABLET (FOR DETOX USE ONLY) PO ONE (11:25)
[2023-03-06] MEDS ORDERED: chlordiazePOXIDE HCL 25 MG CAPSULE PO PRN (11:25)
[2023-03-06] MEDS ORDERED: chlordiazePOXIDE HCL 25 MG CAPSULE ONE (11:36)
[2023-03-06] MEDS ORDERED: methaDONE HCL 10 MG TABLET (FOR DETOX USE ONLY) ONE (11:37)
[2023-03-06] MEDS: chlordiazePOXIDE HCL 25 MG CAPSULE PO SCH ×3 (11:46→23:58)
[2023-03-06 17:50] LABS: HIV INTERPRETATION NEGATIVE (NEGATIVE)
[2023-03-06] MEDS ORDERED: THIAMINE HCL 100 MG TABLET (FP) PO SCH (22:00)
[2023-03-06] MEDS ORDERED: MELATONIN 5 MG TABLETS PO SCH (22:00)
[2023-03-07] MEDS: chlordiazePOXIDE HCL 25 MG CAPSULE PO SCH ×2 (05:56→10:17)
[2023-03-07] MEDS ORDERED: NICOTINE 14 MG/24 HOURS TOPICAL PATCH TD SCH (10:00)
[2023-03-07] MEDS ORDERED: PRENATAL VITAMINS W/ FOLIC ACID TABLET (FP) PO SCH (10:00)
[2023-03-07] MEDS ORDERED: AZITHROMYCIN 250 MG TABLET PO SCH (10:00)
[2023-03-07 11:19] LABS: HEMATOCRIT 42.2 % (35.4-49); HEMOGLOBIN 14.7 GM/dL (11.7-16.9); MCH 30.7 pg (25.7-33.7); MEAN CELL VOLUME 87.8 fl (80-96); MEAN PLT VOLUME 8.9 fl (7.5-11.1); PLATELET COUNT 559 10^3/uL (134-434); RDW 14.6 % (11.9-15.9); WHITE BLOOD COUNT 11.9 K/mm3 (4.0-10.0)
[2023-03-07 11:28] LABS: POTASSIUM 4.6 mmol/L (3.5-5.1)
[2023-03-07 11:36] LABS: ALBUMIN 3.5 g/dl (3.4-5.0)
[2023-03-07 11:37] LABS: BLOOD UREA NITROGEN 7.8 mg/dL (7-18); CALCIUM 9.6 mg/dL (8.5-10.1)
[2023-03-07 11:38] LABS: CREATININE 0.6 mg/dL (0.55-1.3)
[2023-03-07 11:40] LABS: BILIRUBIN,TOTAL 0.3 mg/dL (0.2-1)
[2023-03-07 14:31] VITALS: BP 105/63; PULSE 64; RESP 17; TEMP 98
[2023-03-08] MEDS ORDERED: chlordiazePOXIDE HCL 25 MG CAPSULE PO SCH (05:00)
[2023-03-08] MEDS ORDERED: methaDONE HCL 10 MG TABLET (FOR DETOX USE ONLY) PO ONE (10:00)
[2023-03-09] MEDS ORDERED: chlordiazePOXIDE HCL 10 MG CAPSULE PO PRN
[2023-03-09] MEDS ORDERED: chlordiazePOXIDE HCL 10 MG CAPSULE PO SCH (05:00)
[2023-03-10] MEDS ORDERED: chlordiazePOXIDE HCL 10 MG CAPSULE PO SCH (05:00)
[2023-03-10] MEDS ORDERED: methaDONE HCL 10 MG TABLET (FOR DETOX USE ONLY) PO ONE (10:00)
[2023-03-11] MEDS ORDERED: chlordiazePOXIDE HCL 10 MG CAPSULE PO ONE (05:00)
== END 2023-03-07 16:19 | disposition left against medical advice (07) | DRG 770 ==
LOC: YASAS 09:19 → Y3N 11:49
PROVIDERS: ADMIT Allergy & Immunology; ATTEND Surgery
PROC: HZ2ZZZZ Detoxification Services for Substance Abuse Treatment (ICD-10-PCS; principal; 2023-03-06)
DX: F11.23 Opioid dependence with withdrawal (principal); F10.230 Alcohol dependence with withdrawal, uncomplicated; F14.20 Cocaine dependence, uncomplicated; F12.20 Cannabis dependence, uncomplicated; F17.210 Nicotine dependence, cigarettes, uncomplicated; F41.1 Generalized anxiety disorder; R50.9 Fever, unspecified; R05.9 Cough, unspecified; Z86.19 Personal history of other infectious and parasitic diseases; Z56.0 Unemployment, unspecified; Z59.00 Homelessness unspecified
CPT/HCPCS: 36415; 80053; 80307; 85025; 85027; 86780; 87389; 87635; 87811; 93005; 93010

== ENCOUNTER 2023-03-06 19:50 | Emergency (ER) | payer OTHER ==
[2023-03-06 20:10] VITALS: BP 126/62; PULSE 55; RESP 18; TEMP 98; BMI 21.2
[2023-03-06 21:48] LABS: BASO % 1.9 % (0-2.0); EOS % 7.4 % (0-4.5); HEMATOCRIT 41.7 % (35.4-49); HEMOGLOBIN 14.5 GM/dL (11.7-16.9); LYMPH % 25.9 % (8-40); MCH 30.4 pg (25.7-33.7); MCHC 34.7 g/dl (32.0-35.9); MEAN CELL VOLUME 87.8 fl (80-96); NEUT % 48.8 % (42.8-82.8); PLATELET COUNT 556 10^3/uL (134-434); RBC 4.75 M/mm3 (4.00-5.60); RDW 14.4 % (11.9-15.9); WHITE BLOOD COUNT 11.5 K/mm3 (4.0-10.0)
[2023-03-06] MEDS ORDERED: AZITHROMYCIN 250 MG TABLET PO ONE (21:53)
[2023-03-06 21:57] LABS: INR 1.03 (0.83-1.09)
[2023-03-06 21:59] LABS: ACTIVATED PTT 29.4 SECONDS (25.2-36.5)
[2023-03-06 22:17] LABS: POTASSIUM 4.2 mmol/L (3.5-5.1)
[2023-03-06 22:19] LABS: ALBUMIN 3.5 g/dl (3.4-5.0); CALCIUM 9.3 mg/dL (8.5-10.1)
[2023-03-06 22:20] LABS: BLOOD UREA NITROGEN 11.3 mg/dL (7-18)
[2023-03-06 22:23] LABS: CREATININE 0.6 mg/dL (0.55-1.3)
[2023-03-06 22:24] LABS: BILIRUBIN,TOTAL 0.2 mg/dL (0.2-1)
[2023-03-06] MEDS ORDERED: AZITHROMYCIN 500 MG TABLET ONE (22:24)
[2023-03-07] MEDS ORDERED: AZITHROMYCIN 500 MG TABLET PO SCH (10:00)
== END 2023-03-06 23:14 | disposition home or self-care (01) ==
LOC: JER 19:50
DX: R07.9 Chest pain, unspecified (principal); R50.9 Fever, unspecified; R05.1 Acute cough; R06.02 Shortness of breath; J40 Bronchitis, not specified as acute or chronic; Z20.822 Contact with and (suspected) exposure to COVID-19
CPT/HCPCS: 0241U-QW; 36415; 71046-TC-FY; 80053; 84484; 85025; 85610; 85730; 93005; 93010; 99284-25

== ENCOUNTER 2023-04-27 10:52 | Inpatient (IN) | payer OTHER ==
[2023-04-27 11:39] VITALS: BMI 19.5
[2023-04-27] MEDS ORDERED: ONDANSETRON *ODT* 4 MG TABLET SL PRN (12:34)
[2023-04-27] MEDS ORDERED: NICOTINE POLACRILEX 2 MG GUM BUC PRN (12:34)
[2023-04-27] MEDS ORDERED: hydrOXYzine PAMOATE 25 MG CAPSULE (FP) PO PRN (12:34)
[2023-04-27] MEDS ORDERED: NALOXONE HCL 0.4 MG/ML VIAL IM PRN (12:34)
[2023-04-27] MEDS ORDERED: BISMUTH SUBSALICYLATE 524 MG/30 ML PO PRN (12:34)
[2023-04-27] MEDS ORDERED: IBUPROFEN 400 MG TABLET (FP) PO PRN (12:34)
[2023-04-27] MEDS ORDERED: BENZONATATE 200 MG CAPSULE PO PRN (12:34)
[2023-04-27] MEDS ORDERED: IBUPROFEN 600 MG TABLET (FP) PO PRN (12:34)
[2023-04-27] MEDS ORDERED: ACETAMINOPHEN 325 MG TABLET (FP) PO PRN (12:34)
[2023-04-27] MEDS ORDERED: METHOCARBAMOL 500 MG TABLET PO PRN (12:34)
[2023-04-27] MEDS ORDERED: DICYCLOMINE HCL 10 MG CAPSULE PO PRN (12:34)
[2023-04-27] MEDS ORDERED: MAG HYDROX/AL HYDROX/SIMETH 30 ML UNIT-DOSE CUP PO PRN (12:34)
[2023-04-27] MEDS ORDERED: POLYETHYLENE GLYCOL (HEALTHYLAX) 3350 17 GM PACKET PO PRN (12:34)
[2023-04-27] MEDS ORDERED: NALOXONE HCL (KLOXXADO) 8 MG SPRAY NS PRN (12:34)
[2023-04-27] MEDS ORDERED: LOPERAMIDE HCL 2 MG CAPSULE PO PRN (12:34)
[2023-04-27] MEDS ORDERED: BENZOCAINE/MENTHOL (CHLORASEPTIC ) LOZENGE MM PRN (12:34)
[2023-04-27] MEDS ORDERED: guaiFENesin 600 MG TABLET.ER (FP) PO PRN (12:34)
[2023-04-27] MEDS ORDERED: MAGNESIUM HYDROX 2400MG/30ML ORAL SUSPENSION 30 ML CUP PO PRN (12:34)
[2023-04-27] MEDS ORDERED: cloNIDine HCL 0.1 MG TABLET PO PRN (12:47)
[2023-04-27] MEDS ORDERED: methaDONE HCL 10 MG TABLET (FOR DETOX USE ONLY) PO ONE (12:47)
[2023-04-27] MEDS ORDERED: ONDANSETRON *ODT* 4 MG TABLET ONE (13:13)
[2023-04-27] MEDS ORDERED: methaDONE HCL 10 MG TABLET (FOR DETOX USE ONLY) ONE (13:18)
[2023-04-27] MEDS: diazePAM 5 MG TABLET PO PRN (19:16)
[2023-04-27] MEDS ORDERED: MELATONIN 5 MG TABLETS PO SCH (22:00)
[2023-04-27] MEDS ORDERED: THIAMINE HCL 100 MG TABLET (FP) PO SCH (22:00)
[2023-04-28] MEDS ORDERED: PRENATAL VITAMINS W/ FOLIC ACID TABLET (FP) PO SCH (10:00)
[2023-04-28] MEDS ORDERED: NICOTINE 14 MG/24 HOURS TOPICAL PATCH TD SCH (10:00)
[2023-04-28] MEDS: diazePAM 5 MG TABLET PO PRN (10:27)
[2023-04-28 12:35] LABS: HEMATOCRIT 42.3 % (35.4-49); HEMOGLOBIN 13.9 GM/dL (11.7-16.9); MCH 29.5 pg (25.7-33.7); MEAN CELL VOLUME 89.4 fl (80-96); MEAN PLT VOLUME 8.5 fl (7.5-11.1); PLATELET COUNT 680 10^3/uL (134-434); RBC 4.73 M/mm3 (4.00-5.60); WHITE BLOOD COUNT 11.1 K/mm3 (4.0-10.0)
[2023-04-28 12:45] LABS: POTASSIUM 4.2 mmol/L (3.5-5.1)
[2023-04-28 12:48] LABS: CALCIUM 10.2 mg/dL (8.5-10.1)
[2023-04-28 12:49] LABS: ALBUMIN 3.6 g/dl (3.4-5.0); BLOOD UREA NITROGEN 10.3 mg/dL (7-18)
[2023-04-28 12:51] LABS: CREATININE 0.8 mg/dL (0.55-1.3)
[2023-04-28 12:54] LABS: BILIRUBIN,TOTAL 0.7 mg/dL (0.2-1); TOT PROT 7.5 g/dl (6.4-8.2)
[2023-04-28 13:58] VITALS: BP 114/57; PULSE 57; RESP 19; TEMP 98.1
[2023-04-29] MEDS ORDERED: methaDONE HCL 10 MG TABLET (FOR DETOX USE ONLY) PO ONE (10:00)
[2023-05-01] MEDS ORDERED: methaDONE HCL 10 MG TABLET (FOR DETOX USE ONLY) PO ONE (10:00)
== END 2023-04-28 14:46 | disposition left against medical advice (07) | DRG 770 ==
LOC: YASAS 10:52 → Y3N 13:01
PROVIDERS: ADMIT Allergy & Immunology; ATTEND Surgery
PROC: HZ2ZZZZ Detoxification Services for Substance Abuse Treatment (ICD-10-PCS; principal; 2023-04-27)
DX: F11.23 Opioid dependence with withdrawal (principal); F14.20 Cocaine dependence, uncomplicated; F16.10 Hallucinogen abuse, uncomplicated; F17.210 Nicotine dependence, cigarettes, uncomplicated; F19.24 Other psychoactive substance dependence with psychoactive substance-induced mood disorder; F43.10 Post-traumatic stress disorder, unspecified; K21.9 Gastro-esophageal reflux disease without esophagitis
CPT/HCPCS: 36415; 80053; 80307; 85027; 86780; 87635; Q0162